=== PATIENT | male | born 1960 | race Caucasian/White ===

== ENCOUNTER 2016-05-21 14:40 | Emergency (ER) | payer BC ==
[2016-05-21 14:49] VITALS: RESP 20
[2016-05-21] MEDS ORDERED: NITROGLYCERIN OINT 1 INCH/GM PACKET TOPICAL STA (15:05)
[2016-05-21] MEDS ORDERED: ASPIRIN 81 MG CHEW PO STA (15:05)
--- NOTE | 2016-05-21 15:08 | ED ---
General Adult HPI - General Chief complaint: Chest Pain Stated complaint: Chest Pain Time Seen by Provider: 05/21/16 14:50 Source: patient, RN notes reviewed Mode of arrival: wheelchair Limitations: no limitations - History of Present Illness Initial comments: This is a 55-year-old male with a past medical history significant for diabetes and high blood pressure. Patient states she's had intermittent chest pain. The last 3 days. Patient states it seems to come and go and last a few hours patient states it does seem to be worse when he exerts himself. Patient denies any shortness of breath or radiation. Patient describes the chest pain as a pressure. Patient denies any diaphoresis or nausea. Patient states he did have some tingling in his hands but that is subsided. Currently she is pain- free. Patient denies any headache patient denies numbness weakness. Patient denies any lightheadedness dizziness or near syncopal episode. Patient denies any abdominal pain. Patient denies any vomiting or diarrhea. Patient denies any recent fevers chills or cough. - Related Data Home Medications Medication Instructions Recorded Confirmed Atenolol [Atenolol] 50 mg PO BID 03/05/15 05/21/16 Levothyroxine Sodium 50 mcg PO DAILY 03/05/15 05/21/16 [Levothyroxine Sodium] metFORMIN HCL [metFORMIN HCL] 500 mg PO BID 03/05/15 05/21/16 Aspirin 650 mg PO ONCE PRN 05/21/16 05/21/16 Aspirin EC [Ecotrin Low Dose] 81 mg PO HS 05/21/16 05/21/16 Magnesium 200 mg PO DAILY 05/21/16 05/21/16 Multivitamins, Thera [Multivitamin 1 tab PO DAILY 05/21/16 05/21/16 (formulary)] Pyridoxine [Vitamin B-6] 50 mg PO DAILY 05/21/16 05/21/16 Vitamin B Complex 1 cap PO DAILY 05/21/16 05/21/16 Zinc 50 mg PO DAILY 05/21/16 05/21/16 Allergies Allergy/AdvReac Type Severity Reaction Status Date / Time No Known Allergies Allergy Verified 05/21/16 15:03 Review of Systems ROS Statement: Those systems with pertinent positive or pertinent negative responses have been documented in the HPI. ROS Other: All systems not noted in ROS Statement are negative. Past Medical History Past Medical History: Hypertension, Thyroid Disorder Additional Past Medical History / Comment(s): THYROID NODULES. NOT DIABETIC, YET ON GLUCOPHAGE FOR "PROTECTIVE PURPOSES". Adrenal adenoma History of Any Multi-Drug Resistant Organisms: None Reported Additional Past Surgical History / Comment(s): THYROID BIOPSY. Past Anesthesia/Blood Transfusion Reactions: No Reported Reaction Past Psychological History: No Psychological Hx Reported Smoking Status: Never smoker Past Alcohol Use History: None Reported Past Drug Use History: None Reported - Past Family History Mother Family Medical History: Diabetes Mellitus Additional Family Medical History / Comment(s): HEPATITIS C. Father Family Medical History: Myocardial Infarction ([place]) Additional Family Medical History / Comment(s): 11CM ANUERSYM. General Exam - General Exam Comments Initial Comments: GENERAL: Patient is well-developed and well-nourished. Patient is nontoxic and well- hydrated and is in no acute distress. ENT: Neck is soft and supple. No significant lymphadenopathy is noted. Oropharynx is clear. Moist mucous membranes. Neck has full range of motion without eliciting any pain. EYES: The sclera were anicteric and conjunctiva were pink and moist. Extraocular movements were intact and pupils were equal round and reactive to light. Eyelids were unremarkable. PULMONARY: Unlabored respirations. Good breath sounds bilaterally. No audible rales rhonchi or wheezing was noted. CARDIOVASCULAR: There is a regular rate and rhythm without any murmurs gallops or rubs. ABDOMEN: Soft and nontender with normal bowel sounds. No palpable organomegaly was noted. There is no palpable pulsatile mass. SKIN: Skin is clear with no lesions or rashes and otherwise unremarkable. NEUROLOGIC: Patient is alert and oriented x3. Cranial nerves II through XII are grossly intact. Motor and sensory are also intact. Normal speech, volume and content. Symmetrical smile. MUSCULOSKELETAL: Normal extremities with adequate strength and full range of motion. No lower extremity swelling or edema. No calf tenderness. LYMPHATICS: No significant lymphadenopathy is noted PSYCHIATRIC: Normal psychiatric evaluation. Normal interpersonal interactions appears functionally intact in deals appropriately with others. No signs of depression. No signs of anxiety. Limitations: no limitations Course Vital Signs 05/21/16 05/21/16 05/21/16 14:47 15:25 16:30 Temperature 98.1 F 98.2 F Pulse Rate 70 66 69 Respiratory 20 20 20 Rate Blood Pressure 158/81 146/81 131/69 O2 Sat by Pulse 98 97 98 Oximetry Medical Decision Making - Medical Decision Making EKG shows normal sinus rhythm at 60 bpm WI interval 180 QRSs 80 QT interval 414 QTC is 440. Patient's EKG shows no ST segment elevation or depression or T wave abnormalities are noted. Patient's chest x-ray shows no acute abnormality. I went back into reevaluate the patient he continued to be chest pain-free. I suggested to the patient that he stay and I recommended that we start him on heparin because he is pains were intermittent and worse with exertion it seemed typical of unstable angina. Patient refused to stay I told him that it was my medical recommendation that he does state he again refused and signed out AMA. - Lab Data Result diagrams: 05/21/16 15:15 05/21/16 15:15 Lab Results 05/21/16 05/21/16 05/21/16 Range/Units 15:15 15:15 15:15 WBC 7.4 (3.8-10.6) k/uL RBC 5.14 (4.30-5.90) m/uL Hgb 16.7 (13.0-17.5) gm/dL Hct 46.9 (39.0-53.0) % MCV 91.1 (80.0-100.0) fL MCH 32.5 (25.0-35.0) pg MCHC 35.6 (31.0-37.0) g/dL RDW 13.4 (11.5-15.5) % Plt Count 173 (150-450) k/uL Neutrophils % 73 % Lymphocytes % 18 % Monocytes % 5 % Eosinophils % 3 % Basophils % 0 % Neutrophils # 5.3 (1.3-7.7) k/uL Lymphocytes # 1.3 (1.0-4.8) k/uL Monocytes # 0.4 (0-1.0) k/uL Eosinophils # 0.2 (0-0.7) k/uL Basophils # 0.0 (0-0.2) k/uL PT (9.0-12.0) sec INR (<1.1) APTT (22.0-30.0) sec Sodium 141 (137-145) mmol/L Potassium 3.5 (3.5-5.1) mmol/L Chloride 105 (98-107) mmol/L Carbon Dioxide 25 (22-30) mmol/L Anion Gap 11 mmol/L BUN 16 (9-20) mg/dL Creatinine 0.70 (0.66-1.25) mg/dL Est GFR (MDRD) Af Amer >60 (>60 ml/min/1.73 sqM) Est GFR (MDRD) Non-Af >60 (>60 ml/min/1.73 sqM) Glucose 104 H (74-99) mg/dL Calcium 8.9 (8.4-10.2) mg/dL Magnesium 2.0 (1.6-2.3) mg/dL Total Bilirubin 0.7 (0.2-1.3) mg/dL AST 31 (17-59) U/L ALT 39 (21-72) U/L Alkaline Phosphatase 54 (38-126) U/L Total Creatine Kinase 112 (55-170) U/L CK-MB (CK-2) 1.2 (0.0-2.4) ng/mL CK-MB (CK-2) Rel Index 1.1 Troponin I <0.012 (0.000-0.034) ng/mL Total Protein 6.8 (6.3-8.2) g/dL Albumin 4.0 (3.5-5.0) g/dL 05/21/16 Range/Units 15:15 WBC (3.8-10.6) k/uL RBC (4.30-5.90) m/uL Hgb (13.0-17.5) gm/dL Hct (39.0-53.0) % MCV (80.0-100.0) fL MCH (25.0-35.0) pg MCHC (31.0-37.0) g/dL RDW (11.5-15.5) % Plt Count (150-450) k/uL Neutrophils % % Lymphocytes % % Monocytes % % Eosinophils % % Basophils % % Neutrophils # (1.3-7.7) k/uL Lymphocytes # (1.0-4.8) k/uL Monocytes # (0-1.0) k/uL Eosinophils # (0-0.7) k/uL Basophils # (0-0.2) k/uL PT 10.6 (9.0-12.0) sec INR 1.0 (<1.1) APTT 26.0 (22.0-30.0) sec Sodium (137-145) mmol/L Potassium (3.5-5.1) mmol/L Chloride (98-107) mmol/L Carbon Dioxide (22-30) mmol/L Anion Gap mmol/L BUN (9-20) mg/dL Creatinine (0.66-1.25) mg/dL Est GFR (MDRD) Af Amer (>60 ml/min/1.73 sqM) Est GFR (MDRD) Non-Af (>60 ml/min/1.73 sqM) Glucose (74-99) mg/dL Calcium (8.4-10.2) mg/dL Magnesium (1.6-2.3) mg/dL Total Bilirubin (0.2-1.3) mg/dL AST (17-59) U/L ALT (21-72) U/L Alkaline Phosphatase (38-126) U/L Total Creatine Kinase (55-170) U/L CK-MB (CK-2) (0.0-2.4) ng/mL CK-MB (CK-2) Rel Index Troponin I (0.000-0.034) ng/mL Total Protein (6.3-8.2) g/dL Albumin (3.5-5.0) g/dL Disposition Clinical Impression: Unstable angina pectoris Disposition: Left Against Medical Advice Referrals: James Tolbert III, MD [Primary Care Provider] - 1-2 days Time of Disposition: 16:35
[2016-05-21 15:29] LABS: Basophils % (A) 0 %; CH 33.8; CHCM 37.2; Eosinophils # (A) 0.2 k/uL (0-0.7); Eosinophils % (A) 3 %; HCT 46.9 % (39.0-53.0); HDW 2.78; HGB 16.7 gm/dL (13.0-17.5); Luc # (Auto) 0.09; Luc % (Auto) 1; Lymphocytes # (A) 1.3 k/uL (1.0-4.8); Lymphocytes % (A) 18 %; MCH 32.5 pg (25.0-35.0); MCHC 35.6 g/dL (31.0-37.0); MCV 91.1 fL (80.0-100.0); Mean Platelet Volume 7.4; Monocytes # (A) 0.4 k/uL (0-1.0); Monocytes % (A) 5 %; Neutrophils # (A) 5.3 k/uL (1.3-7.7); Neutrophils % (A) 73 %; RBC 5.14 m/uL (4.30-5.90); RDW 13.4 % (11.5-15.5); WBC 7.4 k/uL (3.8-10.6); WBC (Perox) 7.43
[2016-05-21 15:39] LABS: Prothrombin Time 10.6 sec (9.0-12.0)
--- NOTE | 2016-05-21 15:39 | XR ---
EXAMINATION TYPE: XR chest 2V DATE OF EXAM: 05/21/2016 3:33 PM COMPARISON: NONE HISTORY: Chest pain TECHNIQUE: Frontal and lateral views of the chest are obtained. FINDINGS: Heart and mediastinum are normal. There is a small linear density in the left lower lobe. The other lung lewis are clear. There are no hilar masses. There are chest leads. IMPRESSION: Mild subsegmental atelectasis at the left lung base. Otherwise negative exam.
[2016-05-21 15:41] LABS: ALT 39 U/L (21-72); AST 31 U/L (17-59); Alkaline Phosphatase 54 U/L (38-126); Anion Gap 11 mmol/L; Blood Urea Nitrogen 16 mg/dL (9-20); Calcium 8.9 mg/dL (8.4-10.2); Carbon Dioxide 25 mmol/L (22-30); Chloride 105 mmol/L (98-107); Glucose 104 mg/dL (74-99); Non-African American GFR(MDRD) >60 (>60 ml/min/1.73 sqM); Potassium 3.5 mmol/L (3.5-5.1); Sodium 141 mmol/L (137-145); Total Bilirubin 0.7 mg/dL (0.2-1.3); Total Protein 6.8 g/dL (6.3-8.2)
[2016-05-21 15:55] LABS: Creatine Kinase 112 U/L (55-170)
[2016-05-21 16:07] LABS: Creatine Kinase MB 1.2 ng/mL (0.0-2.4); Troponin I <0.012 ng/mL (0.000-0.034)
[2016-05-21 16:31] VITALS: BP 131/69; PULSE 69; TEMP 98.2
== END 2016-05-21 16:31 | disposition left against medical advice (07) ==
LOC: EC 14:40
DX: I20.0 Unstable angina (principal); E07.9 Disorder of thyroid, unspecified; I10 Essential (primary) hypertension; E11.9 Type 2 diabetes mellitus without complications; Z79.84 Long term (current) use of oral hypoglycemic drugs; Z86.018 Personal history of other benign neoplasm; Z79.82 Long term (current) use of aspirin; Z53.21 Procedure and treatment not carried out due to patient leaving prior to being seen by health care provider; Z79.899 Other long term (current) drug therapy
CPT/HCPCS: 36415; 71020; 80053; 82550; 82553; 83735; 84484; 85025; 85610; 85730; 93005; 99285

== ENCOUNTER 2017-02-23 12:17 | Day surgery (SDC) | payer BC ==
[2017-02-23 13:50] VITALS: BP 146/83; PULSE 76; RESP 16; TEMP 98
--- NOTE | 2017-02-23 14:06 | US ---
EXAMINATION TYPE: US thyroid st tissue head/neck DATE OF EXAM: 02/23/2017 COMPARISON: Thyroid ultrasound February 12, 2017 CLINICAL HISTORY: E04.1 nontoxic nodule. GLAND SIZE: Right Lobe: 5.2 x 2.4 x 2.0 cm Overall Parenchyma: heterogenous Left Lobe: 4.6 x 2.0 x 1.8 cm Overall Parenchyma: heterogeneous Isthmus Thickness: 0.6 cm NODULES RIGHT: # of nodules measured on right: 1. 2.1 X 1.8 x 1.6 cm hypoechoic mixed nodule at the lower pole with irregular margins; . This nod ule is taller than wide and shows intranodular vascularity. Prior size: 2.7 x 1.6 x 1.6 cm 2. 0.6 X 0.5 x 0.6 cm hypoechoic cystic nodule at the mid pole with well-defined margins; . This no dule is taller than wide and shows no intranodular vascularity. Prior size: 0.7 x 0.6 x 0.6 cm 3. 0.9 X 0.8 x 0.6 cm hypoechoic solid nodule at the upper pole with irregular margins; . This nodu le is taller than wide and shows no intranodular vascularity. Prior size: 0.8 x 0.5 x 0.7 cm LEFT: # of nodules measured on left: 2 1. 2.4 X 1.6 x 1.5 cm hypoechoic mixed nodule at the lower pole with well-defined margins; . This nodule is taller than wide and shows no intranodular vascularity. Prior size: 2.3 x 1.7 x 1.7 cm 2. 0.9 X 0.6 x 0.5 cm isoechoic solid nodule at the upper pole with poorly defined margins; . This nodule is taller than wide and shows no intranodular vascularity. Prior size: Not previously seen ISTHMUS: # of nodules measured in the isthmus: 0 Bilateral neck scanned, no evidence of lymphadenopathy. IMPRESSION: Stable heterogeneous nonenlarged thyroid with scattered nodules. No significant change from recent ul trasound.
--- NOTE | 2017-02-23 15:47 | US ---
Discontinued fine-needle aspiration history: Toxic nodule following discussion of risks and benefits of the procedure, patient has elected not to undergo fine- needle aspiration at this time. Re-consult as necessary.
== END 2017-02-23 13:45 | disposition home or self-care (01) ==
LOC: RADPROMAIN 12:17
PROVIDERS: ATTEND Nurse Practitioner Family
DX: E04.1 Nontoxic single thyroid nodule (principal)
CPT/HCPCS: 76536

== ENCOUNTER → 2017-03-06 | Outpatient (CLI) | payer BC ==
[2017-03-06 14:25] LABS: Blood Urea Nitrogen 18 mg/dL (9-20)
--- NOTE | 2017-03-06 16:56 | CT ---
EXAMINATION TYPE: CT soft tissue neck w con DATE OF EXAM: 03/06/2017 COMPARISON: NONE HISTORY: choking sensation and difficulty swallowing CT DLP: 902.6 mGycm CONTRAST: Patient injected with 100 mL of Omnipaque 300. TECHNIQUE: Axial images at 3 mm thick sections. Reconstructed images in the coronal plane and sagitt al plane are reviewed. FINDINGS: Limited CT sections are obtained the lung apices. The lung apices appear clear. CT neck: The torus tubarius and fossa of Rosenmuller are normal. Bus Driver spaces are normal. Para nasal sinuses and mastoid air cells are clear. Parotid glands appear normal and symmetrical. Submandibular glands, are normal. Parapharyngeal spac es are normal. No suspicious adenopathy is evident. Dental amalgam scatter artifact limits evaluatio n at the level of the mandible. The hypopharynx appears within normal limits. Vocal cord level appear symmetrical. Thyroid contains a couple of small hypodensities within the right lobe thyroid. Thyroid is slightly e nlarged compared to the left. Degenerative changes are through the cervical spine. IMPRESSIONS: 1. No suspicious acute changes within the soft tissues neck to account for dysphasia.
== END | disposition home or self-care (01) ==
LOC: RADCTMAIN 13:52
PROVIDERS: ATTEND Family Medicine
DX: E04.1 Nontoxic single thyroid nodule (principal); E11.9 Type 2 diabetes mellitus without complications; R13.12 Dysphagia, oropharyngeal phase
CPT/HCPCS: 82565; 84520; 70491; 36415; Q9967

== ENCOUNTER 2018-07-12 16:29 | Emergency (ER) | payer BC ==
[2018-07-12 16:35] VITALS: RESP 18
[2018-07-12] MEDS ORDERED: MORPHINE SULFATE 4 MG/ML SYRINGE IV STA (16:52)
[2018-07-12] MEDS ORDERED: SODIUM CHLORIDE 0.9% 1,000 ML IV STA ×2 (16:52)
[2018-07-12] MEDS ORDERED: SODIUM CHLORIDE 0.9% 500 ML 500 ML IV STA (16:52)
[2018-07-12 17:20] LABS: Basophils % (A) 0 %; Eosinophils # (A) 0.2 k/uL (0-0.7); Eosinophils % (A) 1 %; HCT 46.1 % (39.0-53.0); HGB 15.8 gm/dL (13.0-17.5); Lymphocytes % (A) 7 %; MCH 31.5 pg (25.0-35.0); MCHC 34.2 g/dL (31.0-37.0); Mean Platelet Volume 7.4; Monocytes # (A) 0.9 k/uL (0-1.0); Monocytes % (A) 7 %; Neutrophils # (A) 10.8 k/uL (1.3-7.7); Neutrophils % (A) 83 %; Platelet Count 146 k/uL (150-450); RBC 5.01 m/uL (4.30-5.90)
[2018-07-12 17:35] LABS: Albumin 3.9 g/dL (3.5-5.0); Calcium 9.2 mg/dL (8.4-10.2); Potassium 3.4 mmol/L (3.5-5.1); Total Bilirubin 1.1 mg/dL (0.2-1.3); Total Protein 6.6 g/dL (6.3-8.2)
[2018-07-12 17:37] LABS: Appearance,Urine Clear (Clear); Bilirubin,Urine Negative (Negative); Blood,Urine Small (Negative); Color,Urine Yellow; Glucose,Urine (UA) Negative (Negative); Ketones,Urine Negative (Negative); Leukocyte Esterase,Urine Negative (Negative); Mucus,Urine Rare /hpf; Nitrite,Urine Negative (Negative); PH, Urine 5.5 (5.0-8.0); Protein,Urine Negative (Negative); RBC,Urine 1 /hpf (0-5); Specific Gravity,Urine 1.009 (1.001-1.035); Urobilinogen,Urine <2.0 mg/dL (<2.0); WBC,Urine 2 /hpf (0-5)
--- NOTE | 2018-07-12 18:08 | ED ---
Abdominal Pain HPI - General Chief Complaint: Abdominal Pain Stated Complaint: Kidney stone Time Seen by Provider: 07/12/18 16:52 Source: patient, RN notes reviewed, old records reviewed Mode of arrival: ambulatory Limitations: no limitations - History of Present Illness Initial Comments: This is a 57-year-old male the ER for evaluation. Patient presents for evaluation regarding abdominal pain history of kidney stones. Patient's presenting for evaluation of same. Pain is uncontrolled. Patient was seen in ER recently for similar complaint. Patient has no other fevers cough or congestion no nausea vomiting or diarrhea. MD Complaint: abdominal pain, flank pain -: days(s) Location: LLQ, L flank Radiation: L flank Migration to: L flank Severity: moderate Severity scale (1-10): 6 Quality: stabbing, aching Consistency: constant Improves With: nothing Worsens With: nothing Associated Symptoms: nausea - Related Data Home Medications Medication Instructions Recorded Confirmed Atenolol 50 mg PO BID 03/05/15 07/12/18 Levothyroxine Sodium 50 mcg PO DAILY 03/05/15 07/12/18 metFORMIN HCL 500 mg PO BID 03/05/15 07/12/18 Aspirin EC [Ecotrin Low Dose] 81 mg PO HS 05/21/16 07/12/18 Magnesium 200 mg PO DAILY 05/21/16 07/12/18 Multivitamins, Thera [Multivitamin 1 tab PO DAILY 05/21/16 07/12/18 (formulary)] Pyridoxine [Vitamin B-6] 50 mg PO DAILY 05/21/16 07/12/18 Vitamin B Complex 1 cap PO DAILY 05/21/16 07/12/18 Zinc 50 mg PO DAILY 05/21/16 07/12/18 Naproxen 500 mg PO BID 07/12/18 07/12/18 Allergies Allergy/AdvReac Type Severity Reaction Status Date / Time No Known Allergies Allergy Verified 07/12/18 17:00 Review of Systems ROS Statement: Those systems with pertinent positive or pertinent negative responses have been documented in the HPI. ROS Other: All systems not noted in ROS Statement are negative. Past Medical History Past Medical History: Hypertension, Thyroid Disorder Additional Past Medical History / Comment(s): THYROID NODULES. NOT DIABETIC, YET ON GLUCOPHAGE FOR "PROTECTIVE PURPOSES". Adrenal adenoma History of Any Multi-Drug Resistant Organisms: None Reported Additional Past Surgical History / Comment(s): THYROID BIOPSY. Past Anesthesia/Blood Transfusion Reactions: No Reported Reaction Past Psychological History: No Psychological Hx Reported Smoking Status: Never smoker Past Alcohol Use History: None Reported Past Drug Use History: None Reported - Past Family History Mother Family Medical History: Diabetes Mellitus Additional Family Medical History / Comment(s): HEPATITIS C. Father Family Medical History: Myocardial Infarction ([place]) Additional Family Medical History / Comment(s): 11CM ANUERSYM. General Exam Limitations: no limitations General appearance: alert, in no apparent distress Head exam: Present: atraumatic, normocephalic, normal inspection Eye exam: Present: normal appearance, PERRL, EOMI. Absent: scleral icterus, conjunctival injection, periorbital swelling ENT exam: Present: normal exam, mucous membranes moist Neck exam: Present: normal inspection. Absent: tenderness, meningismus, lymp hadenopathy Respiratory exam: Present: normal lung sounds bilaterally. Absent: respiratory distress, wheezes, rales, rhonchi, stridor Cardiovascular Exam: Present: regular rate, normal rhythm, normal heart sounds. Absent: systolic murmur, diastolic murmur, rubs, gallop, clicks GI/Abdominal exam: Present: soft, normal bowel sounds. Absent: distended, tenderness, guarding, rebound, rigid Extremities exam: Present: normal inspection, full ROM, normal capillary refill. Absent: tenderness, pedal edema, joint swelling, calf tenderness Back exam: Present: normal inspection Neurological exam: Present: alert, oriented X3, CN II-XII intact Psychiatric exam: Present: normal affect, normal mood Skin exam: Present: warm, dry, intact, normal color. Absent: rash Course Vital Signs 07/12/18 07/12/18 16:32 18:59 Temperature 98.8 F Pulse Rate 75 71 Respiratory 18 18 Rate Blood Pressure 187/8 159/80 O2 Sat by Pulse 98 98 Oximetry Medical Decision Making - Lab Data Result diagrams: 07/12/18 17:05 07/12/18 17:05 Lab Results 07/12/18 07/12/18 07/12/18 Range/Units 17:05 17:05 17:11 WBC 13.0 H (3.8-10.6) k/uL RBC 5.01 (4.30-5.90) m/uL Hgb 15.8 (13.0-17.5) gm/dL Hct 46.1 (39.0-53.0) % MCV 92.0 (80.0-100.0) fL MCH 31.5 (25.0-35.0) pg MCHC 34.2 (31.0-37.0) g/dL RDW 13.0 (11.5-15.5) % Plt Count 146 L (150-450) k/uL Neutrophils % 83 % Lymphocytes % 7 % Monocytes % 7 % Eosinophils % 1 % Basophils % 0 % Neutrophils # 10.8 H (1.3-7.7) k/uL Lymphocytes # 1.0 (1.0-4.8) k/uL Monocytes # 0.9 (0-1.0) k/uL Eosinophils # 0.2 (0-0.7) k/uL Basophils # 0.0 (0-0.2) k/uL Sodium 139 (137-145) mmol/L Potassium 3.4 L (3.5-5.1) mmol/L Chloride 106 (98-107) mmol/L Carbon Dioxide 24 (22-30) mmol/L Anion Gap 9 mmol/L BUN 22 H (9-20) mg/dL Creatinine 1.20 (0.66-1.25) mg/dL Est GFR (CKD-EPI)AfAm 78 (>60 ml/min/1.73 sqM) Est GFR (CKD-EPI)NonAf 67 (>60 ml/min/1.73 sqM) Glucose 138 H (74-99) mg/dL Calcium 9.2 (8.4-10.2) mg/dL Total Bilirubin 1.1 (0.2-1.3) mg/dL AST 31 (17-59) U/L ALT 27 (21-72) U/L Alkaline Phosphatase 48 (38-126) U/L Total Protein 6.6 (6.3-8.2) g/dL Albumin 3.9 (3.5-5.0) g/dL Amylase 36 (30-110) U/L Lipase 66 (23-300) U/L Urine Color Yellow Urine Appearance Clear (Clear) Urine pH 5.5 (5.0-8.0) Ur Specific [place] 1.009 (1.001-1.035) Urine Protein Negative (Negative) Urine Glucose (UA) Negative (Negative) Urine Ketones Negative (Negative) Urine Blood Small H (Negative) Urine Nitrite Negative (Negative) Urine Bilirubin Negative (Negative) Urine Urobilinogen <2.0 (<2.0) mg/dL Ur Leukocyte Esterase Negative (Negative) Urine RBC 1 (0-5) /hpf Urine WBC 2 (0-5) /hpf Urine Mucus Rare H (None) /hpf Disposition Clinical Impression: Left ureteral stone Disposition: HOME SELF-CARE Condition: Good Instructions (If sedation given, give patient instructions): Renal Colic (ED), Kidney Stones (ED) Is patient prescribed a controlled substance at d/c from ED?: No Referrals: Serafin Woodson MD [Primary Care Provider] - 1-2 days
--- NOTE | 2018-07-12 19:00 | CT ---
EXAMINATION TYPE: CT abdomen pelvis wo con DATE OF EXAM: 07/12/2018 COMPARISON: 01/19/2010 HISTORY: LT side abdominal pain. Pt hx renal stones. Pt said he had a CT scan 3 days ago in [place] a nd [address] DLP: 1581 mGycm Automated exposure control for dose reduction was used. TECHNIQUE: Helical acquisition of images was performed from the lung bases through the pelvis. FINDINGS: There is mild scarring and subsegmental atelectasis at the lung bases. Liver spleen pancreas stomach appear normal. Bile ducts are not dilated. There is no adrenal mass. There is a 7 cm cortical cyst upper pole right kidney. There is left side. The nephric edema and periureteral edema. There is left-sided hydronephrosis and hydroureter. There is 4 mm obstructing calculus at the left ureterovesical junction. I see no other u rinary tract calculus. Bladder distends smoothly. There is no inguinal hernia. There is no ascites or free air. There is no mesenteric edema. There is no evidence of a bowel obstruction. Exam is limited by the patient's size. I see no bony destructive process. There is a minimal degenerative first-degree L5 spondylolisthesis. There is no spondylolysis . Bony pelvis is intact.. Appendix is normal. Right colon is not entirely included on this exam. IMPRESSION: OBSTRUCTING SMALL CALCULUS AT THE LEFT URETEROVESICAL JUNCTION WITH LEFT-SIDED HYDRONEPHROSIS AND HYD ROURETER. MILD FIBROTIC CHANGES AND SUBSEGMENTAL ATELECTASIS AT THE LUNG BASES.
[2018-07-12] MEDS ORDERED: ACET/COD 300 MG/30 MG STARTER PACK 6 TAB BTL PO STA (19:12)
[2018-07-12] MEDS ORDERED: TAMSULOSIN 0.4 MG CAP.ER.24H PO STA (19:12)
[2018-07-12 19:34] VITALS: BP 170/95; PULSE 72; TEMP 99.1
== END 2018-07-12 19:32 | disposition home or self-care (01) ==
LOC: EC 16:29
DX: N20.1 Calculus of ureter (principal); I10 Essential (primary) hypertension; E07.9 Disorder of thyroid, unspecified; Z79.890 Hormone replacement therapy; Z79.84 Long term (current) use of oral hypoglycemic drugs; Z79.82 Long term (current) use of aspirin; Z79.1 Long term (current) use of non-steroidal anti-inflammatories (NSAID); Z79.899 Other long term (current) drug therapy
CPT/HCPCS: 36415; 80053; 82150; 83690; 85025; 81001; 87086; 74176; 99285; 96374; 96361 ×2; J2270

== ENCOUNTER 2018-07-30 15:00 | Observation (INO) | payer BC ==
[2018-07-30 17:37] LABS: Basophils # (A) 0.1 k/uL (0-0.2); Basophils % (A) 1 %; Eosinophils # (A) 0.9 k/uL (0-0.7); Eosinophils % (A) 9 %; HCT 44.2 % (39.0-53.0); HGB 15.1 gm/dL (13.0-17.5); Lymphocytes # (A) 1.4 k/uL (1.0-4.8); Lymphocytes % (A) 15 %; MCH 30.9 pg (25.0-35.0); MCHC 34.2 g/dL (31.0-37.0); MCV 90.3 fL (80.0-100.0); Mean Platelet Volume 7.3; Monocytes # (A) 0.6 k/uL (0-1.0); Monocytes % (A) 7 %; Neutrophils # (A) 6.5 k/uL (1.3-7.7); Neutrophils % (A) 67 %; Platelet Count 224 k/uL (150-450); RDW 14.2 % (11.5-15.5); WBC 9.6 k/uL (3.8-10.6)
[2018-07-30 17:42] LABS: Appearance,Urine Clear (Clear); Bacteria,Urine Rare /hpf; Bilirubin,Urine Negative (Negative); Blood,Urine Trace (Negative); Color,Urine Yellow; Glucose,Urine (UA) Negative (Negative); Ketones,Urine Negative (Negative); Leukocyte Esterase,Urine Negative (Negative); Mucus,Urine Few /hpf; Nitrite,Urine Negative (Negative); PH, Urine 5.5 (5.0-8.0); Protein,Urine Trace (Negative); RBC,Urine 8 /hpf (0-5); Specific Gravity,Urine 1.035 (1.001-1.035); WBC,Urine 1 /hpf (0-5)
[2018-07-30 17:47] LABS: INR 1.1 (<1.2); Partial Thromboplastin Time 26.1 sec (22.0-30.0); Prothrombin Time 11.1 sec (9.0-12.0)
[2018-07-30 17:54] LABS: ALT 289 U/L (21-72); AST 175 U/L (17-59); African American GFR (CKD) >90 (>60 ml/min/1.73 sqM); Albumin 3.8 g/dL (3.5-5.0); Alkaline Phosphatase 91 U/L (38-126); Amylase 52 U/L (30-110); Anion Gap 7 mmol/L; Blood Urea Nitrogen 22 mg/dL (9-20); Calcium 9.3 mg/dL (8.4-10.2); Carbon Dioxide 25 mmol/L (22-30); Chloride 109 mmol/L (98-107); Creatine Kinase 61 U/L (55-170); Creatine Kinase MB 0.5 ng/mL (0.0-2.4); Glucose 127 mg/dL (74-99); Lipase 100 U/L (23-300); Magnesium 2.1 mg/dL (1.6-2.3); Sodium 141 mmol/L (137-145); Total Bilirubin 1.1 mg/dL (0.2-1.3); Total Protein 6.9 g/dL (6.3-8.2); Troponin I <0.012 ng/mL (0.000-0.034)
--- NOTE | 2018-07-30 18:04 | ED ---
General Adult HPI - General Stated complaint: Allergic Reaction Time Seen by Provider: 07/30/18 17:08 Source: RN notes reviewed, old records reviewed - History of Present Illness Initial comments: 57-year-old male present emergency department today for multiple complaints. Patient reports that 2 weeks ago he returned from [place]. While he was in [place] he was treated for a kidney stone and was treated with medication called Estrella Mintezol. Patient states that he feels like he is now having all the adverse side effects of this medication and feels that he may have some concerns for a granulocytosis. He complains of fever bodyaches and chills. [place] He does question if he could possibly have malaria as well. Patient states he feels general fatigue, and will have episodes of shaking and sweating spells. Patient states that he has no specific chest pain, Patient also complains of a dry cough.. He states that he was treated in the [facility] for 3 days prior to coming here. He was seen in this emergency room and treated for kidney stones 2 weeks ago. He states that those have passed a denies any significant flank pain dysuria at this time. - Related Data Home Medications Medication Instructions Recorded Confirmed Atenolol 50 mg PO BID 03/05/15 07/30/18 Levothyroxine Sodium 50 mcg PO DAILY 03/05/15 07/30/18 metFORMIN HCL 500 mg PO BID 03/05/15 07/30/18 Multivitamins, Thera [Multivitamin 1 tab PO DAILY 05/21/16 07/30/18 (formulary)] Naproxen 500 mg PO BID 07/12/18 07/30/18 Allergies Allergy/AdvReac Type Severity Reaction Status Date / Time No Known Allergies Allergy Verified 07/30/18 17:05 Review of Systems ROS Statement: Those systems with pertinent positive or pertinent negative responses have been documented in the HPI. ROS Other: All systems not noted in ROS Statement are negative. Past Medical History Past Medical History: Hypertension, Thyroid Disorder Additional Past Medical History / Comment(s): THYROID NODULES. NOT DIABETIC, YET ON GLUCOPHAGE FOR "PROTECTIVE PURPOSES". Adrenal adenoma History of Any Multi-Drug Resistant Organisms: None Reported Additional Past Surgical History / Comment(s): THYROID BIOPSY. Past Anesthesia/Blood Transfusion Reactions: No Reported Reaction Past Psychological History: No Psychological Hx Reported Smoking Status: Never smoker Past Alcohol Use History: None Reported Past Drug Use History: None Reported - Past Family History Mother Family Medical History: Diabetes Mellitus Additional Family Medical History / Comment(s): HEPATITIS C. Father Family Medical History: Myocardial Infarction ([place]) Additional Family Medical History / Comment(s): 11CM MARSHALLSYM. Course Vital Signs 07/30/18 07/30/18 07/30/18 18:00 18:11 18:30 Temperature 100.0 F H Pulse Rate 77 75 Respiratory 20 18 Rate Blood Pressure 135/81 150/91 150/91 O2 Sat by Pulse 95 97 Oximetry 07/30/18 07/30/18 07/30/18 19:00 19:09 19:30 Temperature 99.4 F Pulse Rate 76 Respiratory 16 Rate Blood Pressure 154/91 150/89 150/89 O2 Sat by Pulse 97 97 Oximetry 07/30/18 07/30/18 07/30/18 20:00 20:30 21:00 Temperature 99.5 F Pulse Rate Respiratory Rate Blood Pressure 137/66 152/98 142/91 O2 Sat by Pulse 98 97 Oximetry Medical Decision Making - Medical Decision Making Patient is a 57 year old male presents today for complaints of fatigue, fevers, dry cough, and general weakness. Patient reports symptoms started 3 weeks after travel to [facility], as well as 2 weeks after treatment for kidney stones. He was diagnosed with kidney stones while in [place] and treated with metimazole. Patient initially concerned symptoms from side affect of metimazole for kidney stone pain such as agranulocytosis. Patient has low grade fever 100.0. Labs initiated and started on fluids. Patient labs were reviewed, elevated transaminase within the past 2 weeks. Patient denies RUQ pain. Gallbladder US shows mildly dilated duct, unclear etiology. Negative lazo sign. Patient history and recent travel concern for possible infectious dissease such as malaria. Patient will be started on doxycycline and quinine. Peripheral smear obtained. Dsicussed close PCP follow up. - Lab Data Result diagrams: 07/30/18 16:30 07/30/18 16:30 Lab Results 07/30/18 07/30/18 07/30/18 Range/Units 16:30 16:30 16:30 WBC 9.6 (3.8-10.6) k/uL RBC 4.90 (4.30-5.90) m/uL Hgb 15.1 (13.0-17.5) gm/dL Hct 44.2 (39.0-53.0) % MCV 90.3 (80.0-100.0) fL MCH 30.9 (25.0-35.0) pg MCHC 34.2 (31.0-37.0) g/dL RDW 14.2 (11.5-15.5) % Plt Count 224 (150-450) k/uL Neutrophils % 67 % Lymphocytes % 15 % Monocytes % 7 % Eosinophils % 9 % Basophils % 1 % Neutrophils # 6.5 (1.3-7.7) k/uL Lymphocytes # 1.4 (1.0-4.8) k/uL Monocytes # 0.6 (0-1.0) k/uL Eosinophils # 0.9 H (0-0.7) k/uL Basophils # 0.1 (0-0.2) k/uL PT (9.0-12.0) sec INR (<1.2) APTT (22.0-30.0) sec Sodium 141 (137-145) mmol/L Potassium 4.0 (3.5-5.1) mmol/L Chloride 109 H (98-107) mmol/L Carbon Dioxide 25 (22-30) mmol/L Anion Gap 7 mmol/L BUN 22 H (9-20) mg/dL Creatinine 0.70 (0.66-1.25) mg/dL Est GFR (CKD-EPI)AfAm >90 (>60 ml/min/1.73 sqM) Est GFR (CKD-EPI)NonAf >90 (>60 ml/min/1.73 sqM) Glucose 127 H (74-99) mg/dL Plasma Lactic Acid Hank (0.7-2.0) mmol/L Calcium 9.3 (8.4-10.2) mg/dL Magnesium 2.1 (1.6-2.3) mg/dL Total Bilirubin 1.1 (0.2-1.3) mg/dL AST 175 H (17-59) U/L ALT 289 H (21-72) U/L Alkaline Phosphatase 91 (38-126) U/L Total Creatine Kinase 61 (55-170) U/L CK-MB (CK-2) 0.5 (0.0-2.4) ng/mL CK-MB (CK-2) Rel Index 0.8 Troponin I <0.012 (0.000-0.034) ng/mL NT-Pro-B Natriuret Pep pg/mL Total Protein 6.9 (6.3-8.2) g/dL Albumin 3.8 (3.5-5.0) g/dL Amylase 52 (30-110) U/L Lipase 100 (23-300) U/L Urine Color Urine Appearance (Clear) Urine pH (5.0-8.0) Ur Specific Joaquin (1.001-1.035) Urine Protein (Negative) Urine Glucose (UA) (Negative) Urine Ketones (Negative) Urine Blood (Negative) Urine Nitrite (Negative) Urine Bilirubin (Negative) Urine Urobilinogen (<2.0) mg/dL Ur Leukocyte Esterase (Negative) Urine RBC (0-5) /hpf Urine WBC (0-5) /hpf Urine Bacteria (None) /hpf Urine Mucus (None) /hpf 07/30/18 07/30/18 07/30/18 Range/Units 16:30 16:30 16:30 WBC (3.8-10.6) k/uL RBC (4.30-5.90) m/uL Hgb (13.0-17.5) gm/dL Hct (39.0-53.0) % MCV (80.0-100.0) fL MCH (25.0-35.0) pg MCHC (31.0-37.0) g/dL RDW (11.5-15.5) % Plt Count (150-450) k/uL Neutrophils % % Lymphocytes % % Monocytes % % Eosinophils % % Basophils % % Neutrophils # (1.3-7.7) k/uL Lymphocytes # (1.0-4.8) k/uL Monocytes # (0-1.0) k/uL Eosinophils # (0-0.7) k/uL Basophils # (0-0.2) k/uL PT 11.1 (9.0-12.0) sec INR 1.1 (<1.2) APTT 26.1 (22.0-30.0) sec Sodium (137-145) mmol/L Potassium (3.5-5.1) mmol/L Chloride (98-107) mmol/L Carbon Dioxide (22-30) mmol/L Anion Gap mmol/L BUN (9-20) mg/dL Creatinine (0.66-1.25) mg/dL Est GFR (CKD-EPI)AfAm (>60 ml/min/1.73 sqM) Est GFR (CKD-EPI)NonAf (>60 ml/min/1.73 sqM) Glucose (74-99) mg/dL Plasma Lactic Acid Hank (0.7-2.0) mmol/L Calcium (8.4-10.2) mg/dL Magnesium (1.6-2.3) mg/dL Total Bilirubin (0.2-1.3) mg/dL AST (17-59) U/L ALT (21-72) U/L Alkaline Phosphatase (38-126) U/L Total Creatine Kinase (55-170) U/L CK-MB (CK-2) (0.0-2.4) ng/mL CK-MB (CK-2) Rel Index Troponin I (0.000-0.034) ng/mL NT-Pro-B Natriuret Pep 62 pg/mL Total Protein (6.3-8.2) g/dL Albumin (3.5-5.0) g/dL Amylase (30-110) U/L Lipase (23-300) U/L Urine Color Yellow Urine Appearance Clear (Clear) Urine pH 5.5 (5.0-8.0) Ur Specific Joaquin 1.035 (1.001-1.035) Urine Protein Trace H (Negative) Urine Glucose (UA) Negative (Negative) Urine Ketones Negative (Negative) Urine Blood Trace H (Negative) Urine Nitrite Negative (Negative) Urine Bilirubin Negative (Negative) Urine Urobilinogen 4.0 (<2.0) mg/dL Ur Leukocyte Esterase Negative (Negative) Urine RBC 8 H (0-5) /hpf Urine WBC 1 (0-5) /hpf Urine Bacteria Rare H (None) /hpf Urine Mucus Few H (None) /hpf 07/30/18 Range/Units 16:30 WBC (3.8-10.6) k/uL RBC (4.30-5.90) m/uL Hgb (13.0-17.5) gm/dL Hct (39.0-53.0) % MCV (80.0-100.0) fL MCH (25.0-35.0) pg MCHC (31.0-37.0) g/dL RDW (11.5-15.5) % Plt Count (150-450) k/uL Neutrophils % % Lymphocytes % % Monocytes % % Eosinophils % % Basophils % % Neutrophils # (1.3-7.7) k/uL Lymphocytes # (1.0-4.8) k/uL Monocytes # (0-1.0) k/uL Eosinophils # (0-0.7) k/uL Basophils # (0-0.2) k/uL PT (9.0-12.0) sec INR (<1.2) APTT (22.0-30.0) sec Sodium (137-145) mmol/L Potassium (3.5-5.1) mmol/L Chloride (98-107) mmol/L Carbon Dioxide (22-30) mmol/L Anion Gap mmol/L BUN (9-20) mg/dL Creatinine (0.66-1.25) mg/dL Est GFR (CKD-EPI)AfAm (>60 ml/min/1.73 sqM) Est GFR (CKD-EPI)NonAf (>60 ml/min/1.73 sqM) Glucose (74-99) mg/dL Plasma Lactic Acid Hank 2.0 (0.7-2.0) mmol/L Calcium (8.4-10.2) mg/dL Magnesium (1.6-2.3) mg/dL Total Bilirubin (0.2-1.3) mg/dL AST (17-59) U/L ALT (21-72) U/L Alkaline Phosphatase (38-126) U/L Total Creatine Kinase (55-170) U/L CK-MB (CK-2) (0.0-2.4) ng/mL CK-MB (CK-2) Rel Index Troponin I (0.000-0.034) ng/mL NT-Pro-B Natriuret Pep pg/mL Total Protein (6.3-8.2) g/dL Albumin (3.5-5.0) g/dL Amylase (30-110) U/L Lipase (23-300) U/L Urine Color Urine Appearance (Clear) Urine pH (5.0-8.0) Ur Specific Joaquin (1.001-1.035) Urine Protein (Negative) Urine Glucose (UA) (Negative) Urine Ketones (Negative) Urine Blood (Negative) Urine Nitrite (Negative) Urine Bilirubin (Negative) Urine Urobilinogen (<2.0) mg/dL Ur Leukocyte Esterase (Negative) Urine RBC (0-5) /hpf Urine WBC (0-5) /hpf Urine Bacteria (None) /hpf Urine Mucus (None) /hpf 07/30/18 18:45 EKG shows sinus rhythm and nonspecific ST and round. Abnormal EKG. Ventricular rate of 76 bpm. Pulse 172 ms. QRS duration 80 ms. QT QTc is 382/429 ms. - Radiology Data Radiology results: report reviewed common duct caliber is mildly dilated. Etiology unclear. Negative Lazo sign. CXR is negative for acute process. Disposition Clinical Impression: Fever, Recently in malaria endemic area, Elevated LFTs Disposition: ADMITTED IP TO THIS HOSP Condition: Stable Is patient prescribed a controlled substance at d/c from ED?: No
[2018-07-30] MEDS ORDERED: ACETAMINOPHEN TAB 500 MG TAB PO STA (18:22)
[2018-07-30] MEDS ORDERED: SODIUM CHLORIDE 0.9% 1,000 ML IV ONE (18:22)
[2018-07-30] MEDS ORDERED: DOXYCYCLINE 100 MG CAP PO STA (18:47)
--- NOTE | 2018-07-30 18:58 | XR ---
EXAMINATION: XR chest 3V DATE AND TIME: 07/30/2018 5:47 PM CLINICAL INDICATION: PHH; Pain TECHNIQUE: 2 frontal and 1 lateral COMPARISON: 05/21/2016 FINDINGS: The lungs are clear. The pleural spaces are negative. The cardiac silhouette is not enlarged. The remainder of the mediastinal silhouette is unremarkable. The skeletal structures and soft tissues are negative for acute findings. IMPRESSION: NO ACUTE PROCESS.
[2018-07-30] MEDS ORDERED: NALOXONE 0.4 MG/ML 1 ML VIAL IV PRN (19:07)
[2018-07-30] MEDS ORDERED: KETOROLAC 30 MG/ML 1 ML VIAL IVP PRN (19:07)
[2018-07-30] MEDS ORDERED: ONDANSETRON 4 MG/2 ML VIAL IVP PRN (19:07)
[2018-07-30] MEDS ORDERED: ACETAMINOPHEN TAB 325 MG TAB PO PRN (19:07)
[2018-07-30] MEDS ORDERED: IBUPROFEN 400 MG TAB PO PRN (19:07)
--- NOTE | 2018-07-30 19:55 | US ---
EXAMINATION TYPE: US gallbladder DATE OF EXAM: 07/30/2018 COMPARISON: NONE CLINICAL HISTORY: Pain, elevated liver enzymes, fatigue EXAM MEASUREMENTS: Liver Length: 16.1 cm Gallbladder Wall: 0.3 cm CBD: 0.7 cm Right Kidney: 15.0 x 6.8 x 6.5 cm Exam limited due to body habitus and bowel gas. Pancreas: Obscured by bowel gas Liver: Increased attenuation limited due to overlying bowel gas. Gallbladder: Limited visualization Evidence for sonographic Lazo's sign: No CBD: wnl Right Kidney: Cystic area seen upper pole measuring 7.6 x 6.1 x 5.6cm. IMPRESSION: COMMON DUCT CALIBER IS MILDLY DILATED, ETIOLOGY UNCLEAR.
[2018-07-30 22:43] VITALS: BMI 39.9
[2018-07-31] MEDS: ATENOLOL 50 MG TAB PO SCH ×3 (01:03→22:04)
[2018-07-31] MEDS: metFORMIN 500 MG TAB PO SCH ×3 (01:03→22:04)
[2018-07-31] MEDS: LEVOTHYROXINE 50 MCG TAB PO SCH (06:17)
[2018-07-31 07:06] LABS: Glucose,Whole Blood 139 mg/dL (75-99)
--- NOTE | 2018-07-31 07:33 | P.HPIM ---
History of Present Illness H&P Date: 07/31/18 Chief Complaint: Fatigue bodyaches. This is a history of physical 57-year-old white male who has recently returned from travel from [place] in [facility] where he ended up having nephrolithiasis. He was treated with metimazole, which is for anti-inflammation and pain. He has been tolerating this product but then states shortly after continue the product he had significant myalgias arthralgias and fatigue. Nephrolithiasis has resolved. He was seen in the emergency room several weeks ago, by history. His travel in [facility] in [facility] was not at all in any type of genital atmosphere. His trip was "domesticated." Question medication side effect. Given his overall picture though, he is been empirically treated with quinine for possible malaria Review of Systems Constitutional: Reports fatigue, Reports sweats, Denies chills, Denies fever Eyes: denies blurred vision, denies pain Ears, nose, mouth and throat: Denies headache, Denies sore throat Cardiovascular: Denies chest pain, Denies shortness of breath Respiratory: Denies cough Gastrointestinal: Denies abdominal pain, Denies diarrhea, Denies nausea, Denies vomiting Past Medical History Past Medical History: Hypertension, Thyroid Disorder Additional Past Medical History / Comment(s): THYROID NODULES. NOT DIABETIC, YET ON GLUCOPHAGE FOR "PROTECTIVE PURPOSES". Adrenal adenoma History of Any Multi-Drug Resistant Organisms: None Reported Additional Past Surgical History / Comment(s): THYROID BIOPSY. Past Anesthesia/Blood Transfusion Reactions: No Reported Reaction Past Psychological History: No Psychological Hx Reported Smoking Status: Never smoker Past Alcohol Use History: None Reported Past Drug Use History: None Reported - Past Family History Mother Family Medical History: Diabetes Mellitus Additional Family Medical History / Comment(s): HEPATITIS C. Father Family Medical History: Myocardial Infarction ([place]) Additional Family Medical History / Comment(s): 11CM ELDON. Medications and Allergies Home Medications Medication Instructions Recorded Confirmed Type Atenolol 50 mg PO BID 03/05/15 07/30/18 History Levothyroxine Sodium 50 mcg PO DAILY 03/05/15 07/30/18 History metFORMIN HCL 500 mg PO BID 03/05/15 07/30/18 History Multivitamins, Thera [Multivitamin 1 tab PO DAILY 05/21/16 07/30/18 History (formulary)] Naproxen 500 mg PO BID 07/12/18 07/30/18 History Allergies Allergy/AdvReac Type Severity Reaction Status Date / Time No Known Allergies Allergy Verified 07/30/18 17:05 Physical Exam Vitals: Vital Signs Temp Pulse Pulse Pulse Resp BP BP 07/31/18 05:10 99.5 F 71 20 07/31/18 01:00 98.9 F 07/30/18 22:20 98.5 F 74 20 147/89 07/30/18 21:00 99.5 F 142/91 07/30/18 20:30 152/98 07/30/18 20:00 137/66 07/30/18 19:30 150/89 07/30/18 19:09 99.4 F 76 16 150/89 07/30/18 19:00 154/91 07/30/18 18:30 150/91 07/30/18 18:11 100.0 F H 75 18 150/91 07/30/18 18:00 77 20 135/81 BP Pulse Ox 07/31/18 05:10 156/96 97 07/31/18 01:00 07/30/18 22:20 98 07/30/18 21:00 07/30/18 20:30 97 07/30/18 20:00 98 07/30/18 19:30 97 07/30/18 19:09 97 07/30/18 19:00 07/30/18 18:30 07/30/18 18:11 97 07/30/18 18:00 95 Intake and Output 07/30/18 07/31/18 07/31/18 22:59 06:59 14:59 Intake Total 100 300 Balance 100 300 Intake: Oral 100 300 Other: Voiding Method Toilet # Voids 1 2 Weight 145.15 kg - Constitutional General appearance: obese - EENT Eyes: no abnormal pupil, no scleral icterus - Neck Neck: no lymphadenopathy - Respiratory Respiratory: bilateral: CTA - Cardiovascular Rhythm: regular Heart sounds: normal: S1, S2 Abnormal Heart Sounds: no S3 Gallop - Gastrointestinal General gastrointestinal: soft, no tenderness - Neurologic Neurologic: CNII-XII intact - Psychiatric Psychiatric: A&O x's 3, appropriate affect, intact judgment & insight Results CBC & Chem 7: 07/30/18 16:30 06/04/19 16:30 Labs: Abnormal Lab Results - Last 24 Hours (Table) 07/30/18 07/30/18 07/30/18 Range/Units 16:30 16:30 16:30 Eosinophils # 0.9 H (0-0.7) k/uL Chloride 109 H (98-107) mmol/L BUN 22 H (9-20) mg/dL Glucose 127 H (74-99) mg/dL POC Glucose (mg/dL) (75-99) mg/dL AST 175 H (17-59) U/L ALT 289 H (21-72) U/L Urine Protein Trace H (Negative) Urine Blood Trace H (Negative) Urine RBC 8 H (0-5) /hpf Urine Bacteria Rare H (None) /hpf Urine Mucus Few H (None) /hpf 07/31/18 Range/Units 07:04 Eosinophils # (0-0.7) k/uL Chloride (98-107) mmol/L BUN (9-20) mg/dL Glucose (74-99) mg/dL POC Glucose (mg/dL) 139 H (75-99) mg/dL AST (17-59) U/L ALT (21-72) U/L Urine Protein (Negative) Urine Blood (Negative) Urine RBC (0-5) /hpf Urine Bacteria (None) /hpf Urine Mucus (None) /hpf Microbiology - Last 24 Hours (Table) 07/30/18 16:30 Urine Culture - Preliminary Urine,Voided Thrombosis Risk Factor Assmnt - Choose All That Apply Any of the Below Risk Factors Present?: Yes Each Factor Represents 1 point: Age 41-60 years Other Risk Factors: No Thrombosis Risk Factor Assessment Total Risk Factor Score: 1 Thrombosis Risk Factor Assessment Level: Low Risk Assessment and Plan (1) Hypertension Current Visit: Yes Status: Acute Code(s): I10 - ESSENTIAL (PRIMARY) HYPERTENSION SNOMED Code(s): 63431455 (2) Elevated LFTs Current Visit: Yes Status: Acute Code(s): R94.5 - ABNORMAL RESULTS OF LIVER FUNCTION STUDIES SNOMED Code(s): 246298917 (3) Fever Current Visit: Yes Status: Acute Code(s): R50.9 - FEVER, UNSPECIFIED SNOMED Code(s): 481185532 (4) Recently in malaria endemic area Current Visit: Yes Status: Acute Code(s): Z20.89 - CONTACT W AND EXPOSURE TO OTH COMMUNICABLE DISEASES SNOMED Code(s): 467896600 (5) Left ureteral stone Current Visit: No Status: Acute Code(s): N20.1 - CALCULUS OF URETER SNOMED Code(s): 85263243 Plan: Continue supportive management. New pack check CBC and CMP in a.m. per Appreciate infectious disease input. Anticipate discharge in next 24 hours if he continues to improve after ID evaluation. Patient is otherwise full code. Time with Patient: Greater than 30
[2018-07-31] MEDS: INSULIN ASPART (NovoLOG) 100 UNIT/ML VIAL SQ SCH ×4 (08:30→22:04)
[2018-07-31] MEDS: DOXYCYCLINE 100 MG CAP PO SCH ×2 (08:30→22:04)
[2018-07-31] MEDS: MULTIVITAMINS, THERA 1 EACH TAB PO SCH (08:30)
[2018-07-31] MEDS ORDERED: PANTOPRAZOLE 40 MG/10 ML VIAL IV SCH (09:00)
[2018-07-31 11:15] LABS: Glucose,Whole Blood 77 mg/dL (75-99)
[2018-07-31 11:19] LABS: Malarial Thin Smear None seen (None seen)
[2018-07-31 13:50] VITALS: RESP 18
--- NOTE | 2018-07-31 14:29 | P.CONS ---
History of Present Illness - Reason for Consult Consult date: 07/31/18 Fever, possible malaria - History of Present Illness This is a 57-year-old male who gives history that he travels extensively for the past 20 years related to his work. He most recently traveled to [place] and unfortunately suffered from kidney stones and was put on metamizole for pain. He did pass the kidney stones stones and had follow-up with Dr. Carrillo last week and no sign of infection was determined. 2 weeks ago patient was also in [facility] in [facility]. He has traveled to areas with malaria but none this year. He usually takes Mintezol when he does travel to areas with malaria. He has had all travel immunizations completed in the remote past. Patient complains of having a fever between 101 101, chills, sweats and shakes more so at nighttime. He denies any close contacts that are sick, no TB exposure. Patient came in to [facility] emergency center and there was concern for malaria. Blood parasite testing was negative. Temperature max 100.1, white count 9.6, creatinine 0.7. AST 175, ALT 289, alkaline phosphatase 91. Lipase was 100, troponin negative. Urinalysis was negative for infection. Patient was started on doxycycline and quinine and [facility]. Patient was recently seen a Dr. Julian Shepherd for eczema on the left abdomen and a precancerous lesion on his left leg. Review of Systems All systems: negative Constitutional: Reports chills, Reports fatigue, Reports fever, Reports night sweats, Reports sweats Eyes: denies blurred vision, denies pain Ears, nose, mouth and throat: Denies dental pain, Denies dysphagia, Denies headache, Denies nasal congestion, Denies nasal discharge, Denies sore throat, Denies vertigo Cardiovascular: Denies chest pain, Denies decreased exercise tolerance, Denies dyspnea on exertion, Denies edema, Denies leg edema, Denies lightheadedness, Denies shortness of breath, Denies syncope Respiratory: Denies cough, Denies cough with sputum, Denies dyspnea, Denies excessive sputum, Denies hemoptysis, Denies home oxygen, Denies wheezing Gastrointestinal: Denies abdominal pain, Denies diarrhea, Denies loss of appetit e, Denies nausea, Denies vomiting Genitourinary: Denies dysuria, Denies kidney stones, Denies urinary retention Musculoskeletal: Denies frequent falls, Denies gait dysfunction, Denies muscle weakness, Denies myalgias Integumentary: Denies pruritus, Denies rash, Denies wounds Neurological: Denies numbness, Denies weakness Psychiatric: Denies anxiety, Denies depression Endocrine: Denies fatigue, Denies weight change Past Medical History Past Medical History: Hypertension, Thyroid Disorder Additional Past Medical History / Comment(s): THYROID NODULES. NOT DIABETIC, YET ON GLUCOPHAGE FOR "PROTECTIVE PURPOSES". Adrenal adenoma History of Any Multi-Drug Resistant Organisms: None Reported Additional Past Surgical History / Comment(s): THYROID BIOPSY. Past Anesthesia/Blood Transfusion Reactions: No Reported Reaction Past Psychological History: No Psychological Hx Reported Smoking Status: Never smoker Past Alcohol Use History: None Reported Additional Past Alcohol Use History / Comment(s): Patient is a lifelong nonsmoker. He denies any marijuana, illicit drug use or alcohol use. He lives at home with his and 2 Yorkies. He denies any service. Patient travels extensively throughout the world including [place], [place], [place]. Past Drug Use History: None Reported - Past Family History Mother Family Medical History: Diabetes Mellitus Additional Family Medical History / Comment(s): HEPATITIS C. Father Family Medical History: Myocardial Infarction ([place]) Additional Family Medical History / Comment(s): 11CM ELDON. Medications and Allergies Home Medications Medication Instructions Recorded Confirmed Type Atenolol 50 mg PO BID 03/05/15 07/30/18 History Levothyroxine Sodium 50 mcg PO DAILY 03/05/15 07/30/18 History metFORMIN HCL 500 mg PO BID 03/05/15 07/30/18 History Multivitamins, Thera [Multivitamin 1 tab PO DAILY 05/21/16 07/30/18 History (formulary)] Naproxen 500 mg PO BID 07/12/18 07/30/18 History Allergies Allergy/AdvReac Type Severity Reaction Status Date / Time No Known Allergies Allergy Verified 07/30/18 17:05 Physical Exam Vitals: Vital Signs Temp Pulse Pulse Pulse Resp BP BP 07/31/18 05:10 99.5 F 71 20 07/31/18 01:00 98.9 F 07/30/18 22:20 98.5 F 74 20 147/89 07/30/18 21:00 99.5 F 142/91 07/30/18 20:30 152/98 07/30/18 20:00 137/66 07/30/18 19:30 150/89 07/30/18 19:09 99.4 F 76 16 150/89 07/30/18 19:00 154/91 07/30/18 18:30 150/91 07/30/18 18:11 100.0 F H 75 18 150/91 07/30/18 18:00 77 20 135/81 BP Pulse Ox 07/31/18 05:10 156/96 97 07/31/18 01:00 07/30/18 22:20 98 07/30/18 21:00 07/30/18 20:30 97 07/30/18 20:00 98 07/30/18 19:30 97 07/30/18 19:09 97 07/30/18 19:00 07/30/18 18:30 07/30/18 18:11 97 07/30/18 18:00 95 Intake and Output 07/30/18 07/31/18 07/31/18 22:59 06:59 14:59 Intake Total 100 300 Balance 100 300 Intake: Oral 100 300 Other: Voiding Method Toilet # Voids 1 2 Weight 145.15 kg Gen: This is a 57-year-old male. He is resting in bed and appears to be comfortable and in no acute distress. HEENT: Head is atraumatic, normocephalic. Pupils equal, round. Sclerae is anicteric. Conjunctiva pink. Mucous members of the mouth are moist. Dentition is in good order. No oropharyngeal erythema or edema. NECK: Supple. No JVD. No lymphadenopathy. No thyromegaly. LUNGS: Clear to auscultation. No wheezes or rhonchi. No intercostal retractions. HEART: Regular rate and rhythm. No murmur. ABDOMEN: Soft. Bowel sounds are present. No masses. No tenderness. EXTREMITIES: No pedal edema. No calf tenderness. Dorsalis pedis +2 bilaterally. NEUROLOGICAL: Patient is awake, alert and oriented x3. Cranial nerves 2 through 12 are grossly intact. Results Results: Laboratory Results WBC 9.6 k/uL (3.8-10.6) 07/30/18 16:30 RBC 4.90 m/uL (4.30-5.90) 07/30/18 16:30 Hgb 15.1 gm/dL (13.0-17.5) 07/30/18 16:30 Hct 44.2 % (39.0-53.0) 07/30/18 16:30 MCV 90.3 fL (80.0-100.0) 07/30/18 16:30 MCH 30.9 pg (25.0-35.0) 07/30/18 16:30 MCHC 34.2 g/dL (31.0-37.0) 07/30/18 16:30 RDW 14.2 % (11.5-15.5) 07/30/18 16:30 Plt Count 224 k/uL (150-450) 07/30/18 16:30 Neutrophils % 67 % 07/30/18 16:30 Lymphocytes % 15 % 07/30/18 16:30 Monocytes % 7 % 07/30/18 16:30 Eosinophils % 9 % 07/30/18 16:30 Basophils % 1 % 07/30/18 16:30 Neutrophils # 6.5 k/uL (1.3-7.7) 07/30/18 16:30 Lymphocytes # 1.4 k/uL (1.0-4.8) 07/30/18 16:30 Monocytes # 0.6 k/uL (0-1.0) 07/30/18 16:30 Eosinophils # 0.9 k/uL (0-0.7) H 07/30/18 16:30 Basophils # 0.1 k/uL (0-0.2) 07/30/18 16:30 PT 11.1 sec (9.0-12.0) 07/30/18 16:30 INR 1.1 (<1.2) 07/30/18 16:30 APTT 26.1 sec (22.0-30.0) 07/30/18 16:30 Sodium 141 mmol/L (137-145) 07/30/18 16:30 Potassium 4.0 mmol/L (3.5-5.1) 07/30/18 16:30 Chloride 109 mmol/L (98-107) H 07/30/18 16:30 Carbon Dioxide 25 mmol/L (22-30) 07/30/18 16:30 Anion Gap 7 mmol/L 07/30/18 16:30 BUN 22 mg/dL (9-20) H 07/30/18 16:30 Creatinine 0.70 mg/dL (0.66-1.25) 07/30/18 16:30 Est GFR (CKD-EPI)AfAm >90 (>60 ml/min/1.73 sqM) 07/30/18 16:30 Est GFR (CKD-EPI)NonAf >90 (>60 ml/min/1.73 sqM) 07/30/18 16:30 Glucose 127 mg/dL (74-99) H 07/30/18 16:30 POC Glucose (mg/dL) 77 mg/dL (75-99) 07/31/18 11:13 POC Glu Cage Operator ID Joelle Gomez 07/31/18 11:13 Plasma Lactic Acid Hank 2.0 mmol/L (0.7-2.0) 07/30/18 16:30 Calcium 9.3 mg/dL (8.4-10.2) 07/30/18 16:30 Magnesium 2.1 mg/dL (1.6-2.3) 07/30/18 16:30 Total Bilirubin 1.1 mg/dL (0.2-1.3) 07/30/18 16:30 AST 175 U/L (17-59) H 07/30/18 16:30 ALT 289 U/L (21-72) H 07/30/18 16:30 Alkaline Phosphatase 91 U/L (38-126) 07/30/18 16:30 Total Creatine Kinase 61 U/L (55-170) 07/30/18 16:30 CK-MB (CK-2) 0.5 ng/mL (0.0-2.4) 07/30/18 16:30 CK-MB (CK-2) Rel Index 0.8 07/30/18 16:30 Troponin I <0.012 ng/mL (0.000-0.034) 07/30/18 16:30 NT-Pro-B Natriuret Pep 62 pg/mL 07/30/18 16:30 Total Protein 6.9 g/dL (6.3-8.2) 07/30/18 16:30 Albumin 3.8 g/dL (3.5-5.0) 07/30/18 16:30 Amylase 52 U/L (30-110) 07/30/18 16:30 Lipase 100 U/L (23-300) 07/30/18 16:30 Urine Color Yellow 07/30/18 16:30 Urine Appearance Clear (Clear) 07/30/18 16:30 Urine pH 5.5 (5.0-8.0) 07/30/18 16:30 Ur Specific [place] 1.035 (1.001-1.035) 07/30/18 16:30 Urine Protein Trace (Negative) H 07/30/18 16:30 Urine Glucose (UA) Negative (Negative) 07/30/18 16:30 Urine Ketones Negative (Negative) 07/30/18 16:30 Urine Blood Trace (Negative) H 07/30/18 16:30 Urine Nitrite Negative (Negative) 07/30/18 16:30 Urine Bilirubin Negative (Negative) 07/30/18 16:30 Urine Urobilinogen 4.0 mg/dL (<2.0) 07/30/18 16:30 Ur Leukocyte Esterase Negative (Negative) 07/30/18 16:30 Urine RBC 8 /hpf (0-5) H 07/30/18 16:30 Urine WBC 1 /hpf (0-5) 07/30/18 16:30 Urine Bacteria Rare /hpf (None) H 07/30/18 16:30 Urine Mucus Few /hpf (None) H 07/30/18 16:30 Bld Parasite Thin Smr None seen (None seen) 07/30/18 19:06 Bl Parasite Thick Smr None seen (None seen) 07/30/18 19:06 CBC & Chem 7: 07/30/18 16:30 07/30/18 16:30 Labs: Abnormal Lab Results - Last 24 Hours (Table) 07/30/18 07/30/18 07/30/18 Range/Units 16:30 16:30 16:30 Eosinophils # 0.9 H (0-0.7) k/uL Chloride 109 H (98-107) mmol/L BUN 22 H (9-20) mg/dL Glucose 127 H (74-99) mg/dL POC Glucose (mg/dL) (75-99) mg/dL AST 175 H (17-59) U/L ALT 289 H (21-72) U/L Urine Protein Trace H (Negative) Urine Blood Trace H (Negative) Urine RBC 8 H (0-5) /hpf Urine Bacteria Rare H (None) /hpf Urine Mucus Few H (None) /hpf 07/31/18 Range/Units 07:04 Eosinophils # (0-0.7) k/uL Chloride (98-107) mmol/L BUN (9-20) mg/dL Glucose (74-99) mg/dL POC Glucose (mg/dL) 139 H (75-99) mg/dL AST (17-59) U/L ALT (21-72) U/L Urine Protein (Negative) Urine Blood (Negative) Urine RBC (0-5) /hpf Urine Bacteria (None) /hpf Urine Mucus (None) /hpf Microbiology - Last 24 Hours (Table) 07/30/18 16:30 Urine Culture - Preliminary Urine,Voided Assessment and Plan Plan: This is a 57-year-old male presents to the hospital with complaints of fever chills and rigors worse at nighttime with extensive travel history. Blood parasite smears negative. He does have mild elevation in liver enzymes and hepatitis panel will be ordered. The patient does feel improvement after he was started on doxycycline and quinine. No signs at this time of malaria. Continue supportive care. Further recommendations as patient progresses. The above dictated assessment and findings were discussed with Dr. Hernández. The impression and plan of care have been directed as dictated. Tati Zamudio nurse practitioner acting as scribe for Dr. Hernández.
[2018-07-31 16:52] LABS: Glucose,Whole Blood 95 mg/dL (75-99)
[2018-07-31 20:08] LABS: Hepatitis A Antibody IgM Non-Reactive (Non-Reactive); Hepatitis B Core IgM Non-Reactive (Non-Reactive)
[2018-07-31 20:21] LABS: Glucose,Whole Blood 158 mg/dL (75-99)
[2018-07-31 21:39] VITALS: PULSE 71
--- NOTE | 2018-07-31 23:36 | P.CON ---
Consult Note - . Consult date: 07/31/18 Assessment/Plan:: This is a 57-year-old male who gives history that he travels extensively for the past 20 years related to his work. He most recently traveled to [place] and unfortunately suffered from kidney stones and was put on metamizole for pain. He did pass the kidney stones stones with help of tamsulosin and had follow-up with Dr. Carrillo last week and no sign of infection was determined. 2 weeks ago patient was also in [facility] in [facility]. He has traveled to areas with malaria but none this year. He usually takes Mintezol when he does travel to areas with malaria. He has had all travel immunizations completed in the remote past. Patient complains of having a fever between 101 101.5, chills, sweats and shakes more so at nighttime. He denies any close contacts that are sick, no TB exposure. Patient came in to [facility] emergency center and there was concern for malaria. Blood parasite testing was negative. Temperature max 100.1, white count 9.6, creatinine 0.7. AST 175, ALT 289, alkaline phosphatase 91. Lipase was 100, troponin negative. Urinalysis was negative for infection. Patient was started on doxycycline and quinine and admitted to the [facility] floor. Patient was recently seen a Dr. Burks for eczema on the left abdomen and a precancerous lesion on his left leg. Please see the consult note as dictated by nurse practitioner Mrs. Tati Zamudio. 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 The most recent travel destinations were [place] as well as [place]. He hasn't the patient did become ill while he was in [place] with nephrolithiasis and was treated for urinary infection and also received anti-inflammatories for pain and fever control. He was not ill while in [place], but did not take malaria prophylaxis during this trip. There was concerns about malaria upon his return medication was initiated. The patient smears have been reviewed by the laboratory without evidence of any parasites. The patient has no anemia, no thrombocytopenia, and is not having ongoing high-grade fevers at this time. It is distinctly unlikely for him to have malaria and these medications are discontinued. The patient did have recent recent obstructive uropathy of the left ureter and relates that he has been seen by his urologist and is thought that this has cleared. The patient has elevated AST and ALT, has been traveler and consequently hepatitis panel will be requested. The patient relates that he has not had sexual relations with anyone on any of his trips as of late. He does not drink alcohol, and does not utilize recreational drugs. The gallbladder ultrasound is reviewed and does not seem to reveal evidence of cholecystitis. Cultures are currently in process which may further help direct course of therapy, repeat AST and ALT will be requested in the morning. With the patient's clinical improvement will continue doxycycline for now he'll also ask for hemoglobin A1c with a.m. lab. I agree with the evaluation, assessment and plan as dictated by nurse practitioner Mrs. Tati Zamudio.
[2018-08-01] MEDS: LEVOTHYROXINE 50 MCG TAB PO SCH (06:13)
[2018-08-01 06:14] VITALS: BP 156/96; TEMP 98.9
[2018-08-01 07:15] LABS: Glucose,Whole Blood 115 mg/dL (75-99)
--- NOTE | 2018-08-01 07:40 | P.DS ---
Providers Date of admission: 07/30/18 19:12 Attending physician: Serafin Woodson Consults: 07/30/18 19:07 Consult Physician Stat Consulting Provider: Pato Hernández Reason/Comments: fever, poss malaria Do you want consulting provider notified?: Yes Primary care physician: Serafin Woodson - Discharge Diagnosis(es) (1) Hypertension Current Visit: Yes Status: Acute (2) Elevated LFTs Current Visit: Yes Status: Acute (3) Fever Current Visit: Yes Status: Acute (4) Recently in malaria endemic area Current Visit: Yes Status: Acute (5) Left ureteral stone Current Visit: No Status: Acute Hospital Course: The patient is here essentially for significant myalgias and elevation of LFTs. Due to his for travel, there was concern about malaria. Also, medication side effect as he was treated in [place]. The patient is not tolerating diet and will be discharged in stable condition to follow-up with me in about one week. Patient Condition at Discharge: Stable Plan - Discharge Summary Discharge Rx Participant: Yes New Discharge Prescriptions: New Pantoprazole [Protonix] 40 mg PO DAILY #30 tablet. Doxycycline [Vibramycin] 100 mg PO BID 10 Days #20 cap Continue metFORMIN HCL 500 mg PO BID Levothyroxine Sodium 50 mcg PO DAILY Atenolol 50 mg PO BID Multivitamins, Thera [Multivitamin (formulary)] 1 tab PO DAILY Naproxen 500 mg PO BID Discharge Medication List Atenolol 50 mg PO BID 03/05/15 [History] Levothyroxine Sodium 50 mcg PO DAILY 03/05/15 [History] metFORMIN HCL 500 mg PO BID 03/05/15 [History] Multivitamins, Thera [Multivitamin (formulary)] 1 tab PO DAILY 05/21/16 [History] Naproxen 500 mg PO BID 07/12/18 [History] Doxycycline [Vibramycin] 100 mg PO BID 10 Days #20 cap 08/01/18 [Rx] Pantoprazole [Protonix] 40 mg PO DAILY #30 tablet. 08/01/18 [Rx] Follow up Appointment(s)/Referral(s): Serafin Woodson MD [Primary Care Provider] - 2 Weeks Discharge Disposition: HOME SELF-CARE
[2018-08-01] MEDS: INSULIN ASPART (NovoLOG) 100 UNIT/ML VIAL SQ SCH (07:55)
[2018-08-01] MEDS: metFORMIN 500 MG TAB PO SCH (08:07)
[2018-08-01] MEDS: ATENOLOL 50 MG TAB PO SCH (08:07)
[2018-08-01] MEDS: MULTIVITAMINS, THERA 1 EACH TAB PO SCH (08:07)
[2018-08-01] MEDS: DOXYCYCLINE 100 MG CAP PO SCH (08:13)
[2018-08-01 08:58] LABS: HCT 44.2 % (39.0-53.0); HGB 15.3 gm/dL (13.0-17.5); MCH 31.3 pg (25.0-35.0); MCHC 34.6 g/dL (31.0-37.0); MCV 90.6 fL (80.0-100.0); Mean Platelet Volume 7.4; Platelet Count 228 k/uL (150-450); RBC 4.88 m/uL (4.30-5.90); RDW 14.2 % (11.5-15.5); WBC 14.1 k/uL (3.8-10.6)
[2018-08-01] MEDS ORDERED: PANTOPRAZOLE 40 MG TABLET PO SCH (09:00)
[2018-08-01 09:09] LABS: ALT 296 U/L (21-72); AST 109 U/L (17-59); African American GFR (CKD) >90 (>60 ml/min/1.73 sqM); Albumin 3.9 g/dL (3.5-5.0); Alkaline Phosphatase 94 U/L (38-126); Anion Gap 10 mmol/L; Blood Urea Nitrogen 14 mg/dL (9-20); Calcium 9.2 mg/dL (8.4-10.2); Carbon Dioxide 24 mmol/L (22-30); Chloride 106 mmol/L (98-107); Glucose 129 mg/dL (74-99); Potassium 3.7 mmol/L (3.5-5.1); Sodium 140 mmol/L (137-145); Total Bilirubin 1.1 mg/dL (0.2-1.3); Total Protein 7.2 g/dL (6.3-8.2)
[2018-08-01 18:22] LABS: Hemoglobin A1C 5.1 % (4.0-6.0)
== END 2018-08-01 08:36 | disposition home or self-care (01) ==
LOC: EC 15:00 → 4MS4W 19:12
PROVIDERS: ADMIT Family Medicine; ATTEND Family Medicine
DX: R50.9 Fever, unspecified (principal); M79.10 Myalgia, unspecified site; I10 Essential (primary) hypertension; R79.89 Other specified abnormal findings of blood chemistry; R74.8 Abnormal levels of other serum enzymes; Z87.442 Personal history of urinary calculi; Z79.84 Long term (current) use of oral hypoglycemic drugs; Z79.890 Hormone replacement therapy; Z79.899 Other long term (current) drug therapy; Z82.49 Family history of ischemic heart disease and other diseases of the circulatory system; Z83.3 Family history of diabetes mellitus; Z79.1 Long term (current) use of non-steroidal anti-inflammatories (NSAID)
CPT/HCPCS: 96360; 99285; 36415; 93005; 83880; 80053 ×2; 80074; 82150; 82550; 82553; 83605; 83690; 83735; 84484; 85025; 85027; 85610; 85730; 81001; 87040; 87207; 87086; 83036; 71046; 76705; G0378 ×3

== ENCOUNTER → 2019-04-15 | Outpatient (CLI) | payer BC ==
[2019-04-15 23:38] LABS: African American GFR (CKD) 96.4 (60.0-200.0); Albumin 4.2 g/dL (3.80-4.90); Anion Gap 7.9 mmol/L (4.00-12.00); Calcium 9.4 mg/dL (8.7-10.3); Carbon Dioxide 30.1 mmol/L (21.6-31.8); Chol/HDL Ratio 3.83; Globulin 2.1 g/dL (1.6-3.3); LDL Cholesterol,Calculated 139.8 mg/dL (0.0-131.0); Non-African American GFR(CKD) 83.2 (60.0-200.0); Potassium 3.9 mmol/L (3.5-5.5); Total Bilirubin 0.6 mg/dL (0.2-1.2); Total Protein 6.3 g/dL (6.2-8.2); VLDL Calculation 24.2 mg/dL (5.00-40.00)
== END | disposition home or self-care (01) ==
LOC: LABWHC1 16:44
PROVIDERS: ATTEND Internal Medicine Clinical Cardiac Electrophysiology
DX: I10 Essential (primary) hypertension (principal); I49.3 Ventricular premature depolarization; E78.5 Hyperlipidemia, unspecified; R73.03 Prediabetes
CPT/HCPCS: 36415; 80053; 80061; 84443

== ENCOUNTER 2020-02-20 00:51 | Inpatient (IN) | payer BC, MEDICARE ==
[~2020-02-20 00:51] MED LIST: EPINEPHrine 10 ML SYRINGE (0.1 MG/ML) ONE; SODIUM BICARB 8.4% 50 ML SYR (1 MEQ/ML) ONE
--- NOTE | 2020-02-20 01:07 | XR ---
EXAM: XR Chest, 1 View CLINICAL HISTORY: ITS.REASON XR Reason: Cardiac arrest TECHNIQUE: Frontal view of the chest. COMPARISON: 05/21/2016. FINDINGS: Lungs: Prominence of central pulmonary vascular compatible with incipient congestive heart failure. Subsegmental atelectasis at the left lung base. Pleural space: Unremarkable. No pneumothorax. Heart: Cardiomegaly. Mediastinum: Unremarkable. Bones/joints: Osteopenia. Tubes, lines and devices: Endotracheal tube is noted in place approximate 1 cm above the tristian. Other findings: Marked hypoaeration. IMPRESSION: 1. Hypoaeration. 2. Cardiomegaly. 3. Findings of incipient congestive heart failure. 4. Subsegmental atelectasis at the left lung base.
[2020-02-20] MEDS ORDERED: NOREPINEPHRINE 4 MG in SODIUM CHLORIDE 0.9% 250 ML IV ONE (01:15)
[2020-02-20] MEDS ORDERED: SODIUM CHLORIDE 0.9% 1,000 ML IV STA ×3 (01:25→02:57)
[2020-02-20] MEDS: NOREPINEPHRINE 32 MG in SODIUM CHLORIDE 0.9% 218 ML IV ONE ×4 (01:55→21:55)
[2020-02-20] MEDS ORDERED: Alteplase PER PHARMACY Stroke 1 EACH MISC MISCELLANE PRN (02:00)
--- NOTE | 2020-02-20 02:05 | CT ---
ADDENDUM - Added by Conor Dill MD on 02/20/2020 2:10 AM (-08:00) Please make the following correction. Additional significant pulmonary emboli are noted within the branches heading to the right lower lobe best seen on coronal image 110. EXAM: CT Angiography Chest With Intravenous Contrast CLINICAL HISTORY: Cardiac arrest. TECHNIQUE: Axial computed tomographic angiography images of the chest with intravenous contrast. CTDI is 65.984 mGy and DLP is 1225.6 mGy-cm. This CT exam was performed using one or more of the following dose reduction techniques: automated exposure control, adjustment of the mA and/or kV according to patient size, and/or use of iterative reconstruction technique. MIP reconstructed images were created and reviewed. COMPARISON: 02/20/2020, plain film evaluation of the chest. FINDINGS: Pulmonary arteries: There is a very large 5 x 2 x 4.5 cm pulmonary embolism within the left main pulmonary artery. Peripheral pulmonary emboli within the vessels leading to the left lower lobe. Aorta: No acute findings. No thoracic aortic aneurysm. Lungs: Patchy airspace disease posteriorly at the lung bases as well as in the right upper lobe possibly in the basilar multifocal pneumonias. No mass. Pleural space: Unremarkable. No significant effusion. No pneumothorax. Heart: Unremarkable. No cardiomegaly. No significant pericardial effusion. No evidence of RV dysfunction. Bones/joints: See below. Soft tissues: Unremarkable. Lymph nodes: Unremarkable. No enlarged lymph nodes. Liver: Fatty liver. Moderate to severe degenerative disc disease of the thoracic spine. Tubes, lines and devices: Endotracheal tube is noted in place above the tristian, in good position. Other findings: There is hypoaeration. IMPRESSION: 1. The dominant finding on the current study is a large pulmonary embolus within the left main pulmonary artery. 2. Additional peripheral pulmonary emboli are noted within the branches heading to the left lower lobe. 3. Hypoaeration. 4. Patchy areas of consolidation both lungs. 5. Cardiomegaly. <MYCVCSECTION> Communications: 02/20/20 02:09 Call Doctor Regarding Pulmonary Embolism, called Dr. Yu on 02/19 02:08 (-05:00)
[2020-02-20] MEDS ORDERED: ALTEPLASE 100 MG in EMPTY BAG 1 BAG IV ONE (02:08)
[2020-02-20 02:10] LABS: HCT 41.8 % (39.0-53.0); HGB 12.7 gm/dL (13.0-17.5); Hypochromasia Moderate; MCHC 30.4 g/dL (31.0-37.0); Macrocytosis Slight; Mean Platelet Volume 7.9; Platelet Count 159 k/uL (150-450); RBC 4.09 m/uL (4.30-5.90); RDW 13.3 % (11.5-15.5)
[2020-02-20 02:15] LABS: Albumin 2.9 g/dL (3.5-5.0); Appearance,Urine Turbid (Clear); Bacteria,Urine Many /hpf; Bilirubin,Urine Negative (Negative); Blood,Urine Small (Negative); Calcium 8.2 mg/dL (8.4-10.2); Color,Urine Yellow; Glucose,Urine (UA) Negative (Negative); Ketones,Urine Negative (Negative); Leukocyte Esterase,Urine Negative (Negative); Magnesium 2.9 mg/dL (1.6-2.3); Mucus,Urine Occasional /hpf; Nitrite,Urine Negative (Negative); Potassium 3.3 mmol/L (3.5-5.1); Protein,Urine 2+ (Negative); RBC,Urine 36 /hpf (0-5); Specific Gravity,Urine 1.021 (1.001-1.035); Sperm,Urine Many /hpf; Squamous Epithelial Cell,Urine 2 /hpf (0-4); Total Bilirubin 0.4 mg/dL (0.2-1.3); Total Protein 5.4 g/dL (6.3-8.2); Urobilinogen,Urine <2.0 mg/dL (<2.0); WBC,Urine 13 /hpf (0-5)
[2020-02-20] MEDS ORDERED: HEPARIN SODIUM,PORCINE 5,000 UNIT/ML 1 ML VIAL IV PRN ×2 (02:17→12:49)
[2020-02-20] MEDS ORDERED: HEPARIN SODIUM,PORCINE 10,000 UNIT/ML 1 ML VIAL IV ONE (02:17)
[2020-02-20 02:23] LABS: INR 1.1 (<1.2); Partial Thromboplastin Time 25.1 sec (22.0-30.0); Prothrombin Time 11.2 sec (9.0-12.0)
[2020-02-20 02:26] LABS: ABG Base Excess -7.7 mmol/L; ABG HCO3 21 mmol/L (21-25); ABG PCO2 55 mmHg (35-45); ABG PO2 284 mmHg (83-108); ABG TCO2 22 mmol/L (19-24); Allen Test Performed? Yes
[2020-02-20] MEDS ORDERED: HEPARIN SOD,PORK IN 0.45% NACL 25,000 UNIT in 0.45% NACL 1 250ML.BAG IV SCH ×2 (02:30→13:00)
--- NOTE | 2020-02-20 02:32 | ED ---
CPR HPI - General Chief Complaint: Cardiac Arrest/CPR Stated Complaint: Cardiac arrest Source: EMS, RN notes reviewed, old records reviewed Mode of arrival: EMS Limitations: altered mental status - History of Present Illness Initial Comments: This is a 59-year-old male to the ER for evaluation, she Dese for evaluation regarding 7 cardiac arrest EMS brings patient in and CPR cardiac arrest patient. EMS was called the patient's house as patient is having significant shortness of breath other history is otherwise unknown patient was unable to speak upon EMS arrival became severe short of breath began to become dusky and changing colors then became apneic patient did lose consciousness without pulse, apneic again. CPR was initiated patient is being brought into the emergency room. An echo history is patient does have high blood pressure high cholesterol diabetes as well as recent back surgery MD Complaint: found unresponsive, stopped breathing, collapsed during rest Place: home Bystander CPR Performed: Yes AED Applied by Bystander/Clinical Scientist: No Shock Advised: No Initial Findings in the Field: alert (Significant right short of breath) ROSC in the Field: Yes (After one appendectomy) Associated Injuries: No Associated Symptoms: shortness of breath Treatments Prior to Arrival: epinephrine mgs # - Related Data Home Medications Medication Instructions Recorded Confirmed Levothyroxine Sodium 50 mcg PO DAILY 03/05/15 02/20/20 atenoloL [Atenolol] 50 mg PO BID 03/05/15 02/20/20 metFORMIN HCL 500 mg PO BID 03/05/15 02/20/20 Naproxen 500 mg PO BID 07/12/18 02/20/20 Atorvastatin Calcium [Lipitor] 40 mg PO DAILY 02/20/20 02/20/20 Gabapentin 300 mg PO Q8H PRN 02/20/20 02/20/20 Tamsulosin HCl [Flomax] 0.8 mg PO DAILY 02/20/20 02/20/20 Triamterene/Hydrochlorothiazid 1 cap PO DAILY 02/20/20 02/20/20 [Dyazide 37.5-25 Capsule] methocarbamoL [Robaxin] 750 mg PO Q8HR PRN 02/20/20 02/20/20 traMADol HCL 100 mg PO Q6H PRN 02/20/20 02/20/20 Allergies Allergy/AdvReac Type Severity Reaction Status Date / Time No Known Allergies Allergy Verified 02/20/20 01:10 Review of Systems ROS Statement: Those systems with pertinent positive or pertinent negative responses have been documented in the HPI. ROS Other: All systems not noted in ROS Statement are negative. Past Medical History Past Medical History: Hypertension, Thyroid Disorder Additional Past Medical History / Comment(s): THYROID NODULES. NOT DIABETIC, YET ON GLUCOPHAGE FOR "PROTECTIVE PURPOSES". Adrenal adenoma History of Any Multi-Drug Resistant Organisms: None Reported Additional Past Surgical History / Comment(s): THYROID BIOPSY. Past Anesthesia/Blood Transfusion Reactions: No Reported Reaction Past Psychological History: No Psychological Hx Reported Past Alcohol Use History: None Reported Past Drug Use History: None Reported - Past Family History Mother Family Medical History: Diabetes Mellitus Additional Family Medical History / Comment(s): HEPATITIS C. Father Family Medical History: Myocardial Infarction ([place]) Additional Family Medical History / Comment(s): 11CM ANUERSYM. General Exam Limitations: altered mental status, physical limitation General appearance: lethargic, cachectic Head exam: Present: atraumatic, normocephalic, normal inspection Eye exam: Present: other (fixed and dilated) ENT exam: Present: normal exam, mucous membranes moist Neck exam: Present: normal inspection. Absent: tenderness, meningismus, lymphadenopathy Respiratory exam: Present: respiratory distress, wheezes, rales, rhonchi, stridor, decreased breath sounds, prolonged expiratory, other (apnea) Cardiovascular Exam: Present: tachycardia, irregular rhythm, normal heart sounds. Absent: systolic murmur, diastolic murmur, rubs, gallop, clicks GI/Abdominal exam: Present: soft, normal bowel sounds. Absent: distended, tenderness, guarding, rebound, rigid Extremities exam: Present: normal inspection, full ROM, normal capillary refill. Absent: tenderness, pedal edema, joint swelling, calf tenderness Back exam: Present: normal inspection Psychiatric exam: Present: normal affect, normal mood Skin exam: Present: warm, dry, intact, normal color. Absent: rash Course Vital Signs 02/20/20 02/20/20 02/20/20 01:08 01:22 01:32 Temperature Pulse Rate 146 H 110 H 110 H Respiratory 14 14 Rate Blood Pressure 104/68 170/93 112/84 O2 Sat by Pulse Oximetry 02/20/20 02/20/20 02/20/20 01:55 02:00 02:12 Temperature 97.5 F L Pulse Rate 133 H 138 H 156 H Respiratory 14 16 16 Rate Blood Pressure 114/83 142/105 O2 Sat by Pulse 97 Oximetry 02/20/20 02/20/20 02/20/20 02:15 02:20 02:26 Temperature Pulse Rate 156 H 158 H 118 H Respiratory 14 14 14 Rate Blood Pressure 146/121 174/149 177/119 O2 Sat by Pulse 98 Oximetry 02/20/20 02/20/20 02/20/20 02:30 02:35 02:40 Temperature Pulse Rate 109 H 122 H 121 H Respiratory 14 14 14 Rate Blood Pressure 168/119 140/109 120/104 O2 Sat by Pulse Oximetry 02/20/20 02/20/20 02/20/20 02:45 03:00 03:10 Temperature Pulse Rate 123 H 123 H 134 H Respiratory 14 16 16 Rate Blood Pressure 121/100 124/109 134/93 O2 Sat by Pulse 100 96 Oximetry 02/20/20 02/20/20 03:40 04:20 Temperature 97.5 F L Pulse Rate 124 H 125 H Respiratory 16 16 Rate Blood Pressure 118/85 155/89 O2 Sat by Pulse 93 L Oximetry - Reevaluation(s) Reevaluation #1: Medical record is reviewed Patient does have return of spontaneous circulation here in the emergency department. Central line was placed, patient did not need pressors while in emergency department as vital signs continued to improve, showing atrial fibrillation Patient was given TPA secondary large PE and then anticoagulated Long conversation was held with regarding patient's prognosis, questions are answered - Consultations Consultation #1: Did speak with vascular surgery, patient is not on blood candidate, encouraged TPA followed by anticoagulation Spoke with ICU who accepted patient's admission Procedures - Central Line Placement Right IJ Consent Obtained: verbal consent Patient Placed on Monitor/Pulse Ox: Yes MD Prep: mask, gown, gloves Central Line Prep: sterile drapes applied Local Anesthesia Used: Lidocaine 1% Ultrasound Used for Placement: Yes Central Line Lumen Inserted: triple Bloods Obtained for Lab: Yes Central Line Position: good blood return, all ports aspirated, flushed, capped, sutured in place with 2-0 silk Dressing Applied: Tegaderm Patient Tolerated Procedure: well Complications: none - Intubation Laryngoscope: Chandrakant Size: 4 ET Tube Size: 7.5 ET Tube Uncuffed: No Tube Secured Location: teeth Tube Placement Confirmation: visualized tube passing through cords, equal breath sounds bilaterally, no breath sounds over epigastrium, confirmation by capnometry Patient Tolerated Procedure: well Intubation Complications: none Medical Decision Making - Medical Decision Making 51 male DF for evaluation, patient brought initially were sudden history cardiac arrest, inability to breathe related hypoxia patient later found out to have large pulmonary embolism likely causing first diagnosis. Patient was able to return spontaneous circulation but showing no purposeful neurologic movement. Patient will be admitted ICU for further evaluation management - Lab Data Result diagrams: 02/21/20 04:22 02/21/20 12:53 Lab Results 02/20/20 02/20/20 02/20/20 Range/Units 01:30 01:30 01:30 WBC 13.2 H (3.8-10.6) k/uL RBC 4.09 L (4.30-5.90) m/uL Hgb 12.7 L (13.0-17.5) gm/dL Hct 41.8 (39.0-53.0) % MCV 102.0 H (80.0-100.0) fL MCH 31.0 (25.0-35.0) pg MCHC 30.4 L (31.0-37.0) g/dL RDW 13.3 (11.5-15.5) % Plt Count 159 (150-450) k/uL MPV 7.9 Neutrophils % Not Reportable Neutrophils % (Manual) 51 % Band Neuts % (Manual) 7 % Lymphocytes % Not Reportable Lymphocytes % (Manual) 35 % Monocytes % Not Reportable Monocytes % (Manual) 3 % Eosinophils % Not Reportable Eosinophils % (Manual) 3 % Basophils % Not Reportable Metamyelocytes % 2 % Myelocytes % 1 % Neutrophils # Not Reportable Neutrophils # (Manual) 7.60 (1.3-7.7) k/uL Lymphocytes # Not Reportable Lymphocytes # (Manual) 4.62 (1.0-4.8) k/uL Monocytes # Not Reportable Monocytes # (Manual) 0.40 (0-1.0) k/uL Eosinophils # Not Reportable Eosinophils # (Manual) 0.40 (0-0.7) k/uL Basophils # Not Reportable Metamyelocytes # (Man) 0.26 H (0) k/uL Myelocytes # (Manual) 0.13 H (0) k/uL Nucleated RBCs 1 H (0-0) /100 WBC Manual Slide Review Performed Large Platelets Present Polychromasia Present Hypochromasia Moderate Poikilocytosis (manual Present Anisocytosis (manual) Present Macrocytosis Slight PT 11.2 (9.0-12.0) sec INR 1.1 (<1.2) APTT 25.1 (22.0-30.0) sec Sample Site ABG pH (7.35-7.45) ABG pCO2 (35-45) mmHg ABG pO2 (83-108) mmHg ABG HCO3 (21-25) mmol/L ABG Total CO2 (19-24) mmol/L ABG O2 Saturation (94-97) % ABG Base Excess mmol/L Marcus Test FiO2 % Sodium (137-145) mmol/L Potassium (3.5-5.1) mmol/L Chloride (98-107) mmol/L Carbon Dioxide (22-30) mmol/L Anion Gap mmol/L BUN (9-20) mg/dL Creatinine (0.66-1.25) mg/dL Est GFR (CKD-EPI)AfAm (>60 ml/min/1.73 sqM) Est GFR (CKD-EPI)NonAf (>60 ml/min/1.73 sqM) Glucose (74-99) mg/dL Lactic Ac Sepsis Rflx Plasma Lactic Acid Hank (0.7-2.0) mmol/L Calcium (8.4-10.2) mg/dL Phosphorus (2.5-4.5) mg/dL Magnesium (1.6-2.3) mg/dL Total Bilirubin (0.2-1.3) mg/dL AST (17-59) U/L ALT (4-49) U/L Alkaline Phosphatase (38-126) U/L Creatine Kinase (55-170) U/L Troponin I (0.000-0.034) ng/mL Total Protein (6.3-8.2) g/dL Albumin (3.5-5.0) g/dL Urine Color Yellow Urine Appearance Turbid (Clear) Urine pH 6.0 (5.0-8.0) Ur Specific [place] 1.021 (1.001-1.035) Urine Protein 2+ H (Negative) Urine Glucose (UA) Negative (Negative) Urine Ketones Negative (Negative) Urine Blood Small H (Negative) Urine Nitrite Negative (Negative) Urine Bilirubin Negative (Negative) Urine Urobilinogen <2.0 (<2.0) mg/dL Ur Leukocyte Esterase Negative (Negative) Urine RBC 36 H (0-5) /hpf Urine WBC 13 H (0-5) /hpf Ur Squamous Epith Cells 2 (0-4) /hpf Urine Bacteria Many H (None) /hpf Urine Mucus Occasional H (None) /hpf Urine Sperm Many H (None) /hpf Blood Type Confirm 02/20/20 02/20/20 02/20/20 Range/Units 01:30 01:30 01:30 WBC (3.8-10.6) k/uL RBC (4.30-5.90) m/uL Hgb (13.0-17.5) gm/dL Hct (39.0-53.0) % MCV (80.0-100.0) fL MCH (25.0-35.0) pg MCHC (31.0-37.0) g/dL RDW (11.5-15.5) % Plt Count (150-450) k/uL MPV Neutrophils % Neutrophils % (Manual) % Band Neuts % (Manual) % Lymphocytes % Lymphocytes % (Manual) % Monocytes % Monocytes % (Manual) % Eosinophils % Eosinophils % (Manual) % Basophils % Metamyelocytes % % Myelocytes % % Neutrophils # Neutrophils # (Manual) (1.3-7.7) k/uL Lymphocytes # Lymphocytes # (Manual) (1.0-4.8) k/uL Monocytes # Monocytes # (Manual) (0-1.0) k/uL Eosinophils # Eosinophils # (Manual) (0-0.7) k/uL Basophils # Metamyelocytes # (Man) (0) k/uL Myelocytes # (Manual) (0) k/uL Nucleated RBCs (0-0) /100 WBC Manual Slide Review Large Platelets Polychromasia Hypochromasia Poikilocytosis (manual Anisocytosis (manual) Macrocytosis PT (9.0-12.0) sec INR (<1.2) APTT (22.0-30.0) sec Sample Site ABG pH (7.35-7.45) ABG pCO2 (35-45) mmHg ABG pO2 (83-108) mmHg ABG HCO3 (21-25) mmol/L ABG Total CO2 (19-24) mmol/L ABG O2 Saturation (94-97) % ABG Base Excess mmol/L Marcus Test FiO2 % Sodium 140 (137-145) mmol/L Potassium 3.3 L (3.5-5.1) mmol/L Chloride 103 (98-107) mmol/L Carbon Dioxide 20 L (22-30) mmol/L Anion Gap 17 mmol/L BUN 18 (9-20) mg/dL Creatinine 1.15 (0.66-1.25) mg/dL Est GFR (CKD-EPI)AfAm 81 (>60 ml/min/1.73 sqM) Est GFR (CKD-EPI)NonAf 70 (>60 ml/min/1.73 sqM) Glucose 318 H (74-99) mg/dL Lactic Ac Sepsis Rflx Plasma Lactic Acid Hank (0.7-2.0) mmol/L Calcium 8.2 L (8.4-10.2) mg/dL Phosphorus 10.6 H* (2.5-4.5) mg/dL Magnesium 2.9 H (1.6-2.3) mg/dL Total Bilirubin 0.4 (0.2-1.3) mg/dL AST 313 H (17-59) U/L ALT 196 H (4-49) U/L Alkaline Phosphatase 107 (38-126) U/L Creatine Kinase 138 (55-170) U/L Troponin I 0.056 H* (0.000-0.034) ng/mL Total Protein 5.4 L (6.3-8.2) g/dL Albumin 2.9 L (3.5-5.0) g/dL Urine Color Urine Appearance (Clear) Urine pH (5.0-8.0) Ur Specific [place] (1.001-1.035) Urine Protein (Negative) Urine Glucose (UA) (Negative) Urine Ketones (Negative) Urine Blood (Negative) Urine Nitrite (Negative) Urine Bilirubin (Negative) Urine Urobilinogen (<2.0) mg/dL Ur Leukocyte Esterase (Negative) Urine RBC (0-5) /hpf Urine WBC (0-5) /hpf Ur Squamous Epith Cells (0-4) /hpf Urine Bacteria (None) /hpf Urine Mucus (None) /hpf Urine Sperm (None) /hpf Blood Type Confirm A Negative 02/20/20 02/20/20 02/20/20 Range/Units 02:02 02:17 02:40 WBC (3.8-10.6) k/uL RBC (4.30-5.90) m/uL Hgb (13.0-17.5) gm/dL Hct (39.0-53.0) % MCV (80.0-100.0) fL MCH (25.0-35.0) pg MCHC (31.0-37.0) g/dL RDW (11.5-15.5) % Plt Count (150-450) k/uL MPV Neutrophils % Neutrophils % (Manual) % Band Neuts % (Manual) % Lymphocytes % Lymphocytes % (Manual) % Monocytes % Monocytes % (Manual) % Eosinophils % Eosinophils % (Manual) % Basophils % Metamyelocytes % % Myelocytes % % Neutrophils # Neutrophils # (Manual) (1.3-7.7) k/uL Lymphocytes # Lymphocytes # (Manual) (1.0-4.8) k/uL Monocytes # Monocytes # (Manual) (0-1.0) k/uL Eosinophils # Eosinophils # (Manual) (0-0.7) k/uL Basophils # Metamyelocytes # (Man) (0) k/uL Myelocytes # (Manual) (0) k/uL Nucleated RBCs (0-0) /100 WBC Manual Slide Review Large Platelets Polychromasia Hypochromasia Poikilocytosis (manual Anisocytosis (manual) Macrocytosis PT (9.0-12.0) sec INR (<1.2) APTT (22.0-30.0) sec Sample Site rrad ABG pH 7.19 L* (7.35-7.45) ABG pCO2 55 H (35-45) mmHg ABG pO2 284 H (83-108) mmHg ABG HCO3 21 (21-25) mmol/L ABG Total CO2 22 (19-24) mmol/L ABG O2 Saturation 100.0 H (94-97) % ABG Base Excess -7.7 mmol/L Marcus Test Yes FiO2 100 % Sodium (137-145) mmol/L Potassium (3.5-5.1) mmol/L Chloride (98-107) mmol/L Carbon Dioxide (22-30) mmol/L Anion Gap mmol/L BUN (9-20) mg/dL Creatinine (0.66-1.25) mg/dL Est GFR (CKD-EPI)AfAm (>60 ml/min/1.73 sqM) Est GFR (CKD-EPI)NonAf (>60 ml/min/1.73 sqM) Glucose (74-99) mg/dL Lactic Ac Sepsis Rflx Y Plasma Lactic Acid Hank 15.3 H* (0.7-2.0) mmol/L Calcium (8.4-10.2) mg/dL Phosphorus (2.5-4.5) mg/dL Magnesium (1.6-2.3) mg/dL Total Bilirubin (0.2-1.3) mg/dL AST (17-59) U/L ALT (4-49) U/L Alkaline Phosphatase (38-126) U/L Creatine Kinase (55-170) U/L Troponin I (0.000-0.034) ng/mL Total Protein (6.3-8.2) g/dL Albumin (3.5-5.0) g/dL Urine Color Urine Appearance (Clear) Urine pH (5.0-8.0) Ur Specific [place] (1.001-1.035) Urine Protein (Negative) Urine Glucose (UA) (Negative) Urine Ketones (Negative) Urine Blood (Negative) Urine Nitrite (Negative) Urine Bilirubin (Negative) Urine Urobilinogen (<2.0) mg/dL Ur Leukocyte Esterase (Negative) Urine RBC (0-5) /hpf Urine WBC (0-5) /hpf Ur Squamous Epith Cells (0-4) /hpf Urine Bacteria (None) /hpf Urine Mucus (None) /hpf Urine Sperm (None) /hpf Blood Type Confirm - EKG Data -: EKG Interpreted by Me (EKG is atrial flutter 134 QRS 92 QTC 456) EKG Comments: Prehospital EKG showed atrial tachycardia of [address] and ST elevation - Radiology Data Radiology results: report reviewed (CTA chest to show significantly large PE), image reviewed Critical Care Time Critical Care Time: Yes Total Critical Care Time: 95 Disposition Clinical Impression: Cardiac arrest, Acute Massive Pulmonary Embolism Disposition: ADMITTED IP TO THIS [facility] Condition: Critical Is patient prescribed a controlled substance at d/c from ED?: No
[2020-02-20 02:39] LABS: Phosphorus 10.6 mg/dL (2.5-4.5)
[2020-02-20] MEDS ORDERED: NALOXONE 0.4 MG/ML 1 ML VIAL IV PRN (02:58)
[2020-02-20 03:04] LABS: Band Neutrophils % 7 %; Metamyelocytes % 2 %; Myelocytes # (M) 0.13 k/uL (0); Myelocytes % 1 %; Neutrophils % (M) 51 %; Nucleated Red Blood Cells 1 /100 WBC (0-0); Total Cells Counted 200
[2020-02-20 03:05] LABS: Anisocytosis (M) Present; Lymphocytes # (M) 4.62 k/uL (1.0-4.8); Metamyelocytes # (M) 0.26 k/uL (0); Polychromasia Present; WBC 13.2 k/uL (3.8-10.6)
[2020-02-20 03:07] LABS: Large Platelets Present
[2020-02-20 03:08] LABS: Poikilocytosis (M) Present
[2020-02-20] MEDS ORDERED: DEXTROSE 5%-0.45% NACL 1,000 ML IV SCH (04:30)
[2020-02-20] MEDS ORDERED: LORazepam 2 MG/ML INJ IV STA (04:30)
[2020-02-20] MEDS ORDERED: propofoL 100 ML IV ONE (04:58)
[2020-02-20] MEDS ORDERED: NOREPINEPHRIN 4 MG-0.9% NS PMX 4 MG/250 ML ML IV ONE (04:58)
[2020-02-20] MEDS ORDERED: DEXTROSE 5% IN WATER 100 ML with AMIODARONE 150 MG IV ONE (06:00)
[2020-02-20 06:02] LABS: ABG Base Excess -4.5 mmol/L; ABG HCO3 21 mmol/L (21-25); ABG Oxygen Saturation 98.8 % (94-97); ABG PCO2 38 mmHg (35-45); ABG PH 7.35 (7.35-7.45); ABG PO2 108 mmHg (83-108); ABG TCO2 22 mmol/L (19-24); Allen Test Performed? Yes
[2020-02-20] MEDS ORDERED: AMIODARONE 360 MG in DEXTROSE 5% IN WATER 200 ML IV ONE ×2 (06:15)
--- NOTE | 2020-02-20 06:53 | XR ---
EXAM: XR Chest, 1 View CLINICAL HISTORY: ITS.REASON XR Reason: Tube placement TECHNIQUE: Frontal view of the chest. COMPARISON: 02/20/2020 IMPRESSION: ET tube terminates 5 cm from the tristian. NG tube side port terminates in the proximal stomach.
[2020-02-20 07:05] LABS: HCT 39.5 % (39.0-53.0); HGB 13.4 gm/dL (13.0-17.5); Hypochromasia Slight; MCH 32.6 pg (25.0-35.0); Mean Platelet Volume 8.4; Poikilocytosis Slight; RBC 4.13 m/uL (4.30-5.90); RDW 13.2 % (11.5-15.5); WBC 38.3 k/uL (3.8-10.6)
[2020-02-20 07:14] LABS: MCV 95.6 fL (80.0-100.0); Platelet Count 323 k/uL (150-450)
[2020-02-20] MEDS ORDERED: IPRATROPIUM-ALBUTEROL 3 ML NEB INHALATION SCH (08:00)
[2020-02-20 08:51] LABS: Albumin 3.3 g/dL (3.5-5.0); Calcium 7.7 mg/dL (8.4-10.2); Phosphorus 6.7 mg/dL (2.5-4.5); Total Bilirubin 1.1 mg/dL (0.2-1.3); Total Protein 6.3 g/dL (6.3-8.2)
[2020-02-20 08:52] LABS: Magnesium 2.2 mg/dL (1.6-2.3); Potassium 4.4 mmol/L (3.5-5.1)
[2020-02-20] MEDS: CHLORHEXIDINE GLUCONATE 15 ML CUP MUCOUS MEM SCH ×2 (09:08→20:48)
[2020-02-20] MEDS: PANTOPRAZOLE 40 MG/10 ML VIAL IV SCH (09:08)
--- NOTE | 2020-02-20 09:37 | P.CNPUL ---
History of Present Illness Consult date: 02/20/20 Requesting physician: Serafin Woodson Reason for consult: other (Critical care management) Chief complaint: Cardiac arrest History of present illness: This is a 59-year-old gentleman who follows with Dr. Woodson as his primary care provider. He has history of hypertension, hyperlipidemia, hypothyroidism, diabetes mellitus. He had recently undergone back surgery at [facility] earlier this week. Last evening his on him to be diaphoretic. He is complaining of shortness of breath. He was brought in by EMS shortly after midnight and while in the ambulance he went into cardiac arrest. He was also in cardiac arrest several more times in the emergency room with an approximate down time of 29 minutes. He was intubated and placed on mechanical ventilation after obtaining the return of spontaneous circulation. 2 amps of bicarb had been given. He received 2 L of fluid resuscitation. CT angiogram revealed a very large 5 x 2 x 4.5 cm pulmonary embolism within the left main pulmonary artery. There is peripheral pulmonary emboli within the vessels leading to the left lower lobe. Patchy airspace disease posterior lung bases as well. He was given TPA in the emergency room. He was also found to be in atrial fibrillation with rapid ventricular response. Current vent settings are assist-control with respiratory rate of 22, tidal volume 500, FiO2 60% and a PEEP of 5. Blood gases revealed a PaO2 of 108, pCO2 38, pH 7.35. He is sedated on propofol at 25 mcg/kg/m. Amiodarone at 1 mg/m. 0.9 normal saline at 130 ML's per hour. Norepinephrine currently on hold. He is currently triggering the ventilator. Pupillary responses intact. No significant gag reflex. Absent doll's eyes. No response to verbal or painful stimuli. There is a significant amount of blood noted posteriorly from the recent back surgery. Heparin drip currently on hold. White count 38. Hemoglobin 13.4. Sodium 142. Potassium 4.4. Creatinine 1.40. Initial lactic acid 6.1. Currently 7.5. Troponin 4.06, 7.64. AST 608 ALT 320. Review of Systems ROS unobtainable: due to endotracheal tube Past Medical History Past Medical History: Hypertension, Thyroid Disorder Additional Past Medical History / Comment(s): THYROID NODULES. NOT DIABETIC, YET ON GLUCOPHAGE FOR "PROTECTIVE PURPOSES". Adrenal adenoma History of Any Multi-Drug Resistant Organisms: None Reported Additional Past Surgical History / Comment(s): THYROID BIOPSY, recent back surgery Past Anesthesia/Blood Transfusion Reactions: No Reported Reaction Past Psychological History: No Psychological Hx Reported Smoking Status: Unknown if ever smoked Past Alcohol Use History: None Reported Additional Past Alcohol Use History / Comment(s): Patient is a lifelong nonsmoker. He denies any marijuana, illicit drug use or alcohol use. He lives at home with his and 2 Yorkies. He denies any service. Patient travels extensively throughout the world including [place], [place], [place]. Past Drug Use History: None Reported - Past Family History Mother Family Medical History: Diabetes Mellitus Additional Family Medical History / Comment(s): HEPATITIS C. Father Family Medical History: Myocardial Infarction (ID) Additional Family Medical History / Comment(s): 11CM ELDON. Medications and Allergies Home Medications Medication Instructions Recorded Confirmed Type Levothyroxine Sodium 50 mcg PO DAILY 03/05/15 02/20/20 History atenoloL [Atenolol] 50 mg PO BID 03/05/15 02/20/20 History metFORMIN HCL 500 mg PO BID 03/05/15 02/20/20 History Naproxen 500 mg PO BID 07/12/18 02/20/20 History Atorvastatin Calcium [Lipitor] 40 mg PO DAILY 02/20/20 02/20/20 History Gabapentin 300 mg PO Q8H PRN 02/20/20 02/20/20 History Tamsulosin HCl [Flomax] 0.8 mg PO DAILY 02/20/20 02/20/20 History Triamterene/Hydrochlorothiazid 1 cap PO DAILY 02/20/20 02/20/20 History [Dyazide 37.5-25 Capsule] Valsartan [Diovan] 160 mg PO BID 02/20/20 02/20/20 History amLODIPine [Norvasc] 5 mg PO DAILY 02/20/20 02/20/20 History methocarbamoL [Robaxin] 750 mg PO Q8HR PRN 02/20/20 02/20/20 History traMADol HCL 100 mg PO Q6H PRN 02/20/20 02/20/20 History Allergies Allergy/AdvReac Type Severity Reaction Status Date / Time No Known Allergies Allergy Verified 02/20/20 01:10 Physical Exam Vitals: Vital Signs Temp Pulse Resp BP Pulse Ox 12/25/20 09:10 137 H 21 106/81 100 02/20/20 09:00 128 H 19 99/85 100 02/20/20 08:50 134 H 22 72/53 100 02/20/20 08:40 140 H 18 93/47 100 02/20/20 08:30 152 H 18 88/77 100 02/20/20 08:20 102 F H 137 H 18 136/99 100 02/20/20 08:10 142 H 19 88/76 99 02/20/20 08:00 133 H 27 H 111/63 99 02/20/20 07:50 163 H 26 H 92/61 98 02/20/20 07:40 158 H 27 H 112/77 99 02/20/20 07:30 158 H 28 H 109/57 99 02/20/20 07:20 151 H 27 H 99 02/20/20 07:10 147 H 27 H 102/52 99 02/20/20 07:00 154 H 28 H 108/69 98 02/20/20 06:50 144 H 26 H 120/96 98 02/20/20 06:40 160 H 27 H 89/59 99 02/20/20 06:30 151 H 26 H 86/51 99 02/20/20 06:20 151 H 28 H 92/78 99 02/20/20 06:10 154 H 26 H 100/62 97 02/20/20 06:00 147 H 28 H 91/62 96 02/20/20 05:50 163 H 28 H 93/69 93 L 02/20/20 05:40 144 H 31 H 96/63 99 02/20/20 05:30 149 H 30 H 101/71 98 02/20/20 05:20 146 H 30 H 97/81 96 02/20/20 05:10 98.6 F 140 H 26 H 124/82 83 L 02/20/20 05:00 142 H 28 H 89/65 02/20/20 04:50 141 H 28 H 02/20/20 04:47 150 H 28 H 02/20/20 04:20 125 H 16 155/89 02/20/20 03:40 97.5 F L 124 H 16 118/85 93 L 02/20/20 03:10 134 H 16 134/93 96 02/20/20 03:00 123 H 16 124/109 100 02/20/20 02:45 123 H 14 121/100 02/20/20 02:40 121 H 14 120/104 02/20/20 02:35 122 H 14 140/109 02/20/20 02:30 109 H 14 168/119 02/20/20 02:26 118 H 14 177/119 02/20/20 02:20 158 H 14 174/149 02/20/20 02:15 156 H 14 146/121 98 02/20/20 02:12 97.5 F L 156 H 16 142/105 97 02/20/20 02:00 138 H 16 02/20/20 01:55 133 H 14 114/83 02/20/20 01:32 110 H 112/84 02/20/20 01:22 110 H 14 170/93 02/20/20 01:08 146 H 14 104/68 Intake and Output 02/19/20 02/20/20 02/20/20 22:59 06:59 14:59 Intake Total 290.384 182.785 Output Total 1560 45 Balance -1269.616 137.785 Intake: IV 260 130 Sodium Chloride 0.9% 1, 260 130 000 ml @ 130 mls/hr IV . Q7H42M STA Rx#:[id number] Intake, IV Titration 30.384 52.785 Amount Empty Bag 1 bag @ 10 MCG/ 26.01 52.785 KG/MIN 9.18 mls/hr IV . [id number] LORENA with propofoL 1,000 mg Rx#:[id number] Norepinephrine 32 mg In 4.374 Sodium Chloride 0.9% 218 ml @ 0.05 MCG/KG/MIN 3. 615 mls/hr IV .Q24H ONE Rx#:[id number] Output: Urine 1560 45 Other: Voiding Method Indwelling Catheter Weight 153 kg GENERAL EXAM: Intubated, sedated 59-year-old obese male patient. HEAD: Normocephalic. EYES: Sluggish reaction of pupils, equal size. NOSE: Clear with pink turbinates. THROAT: Oral endotracheal and gastric tube secured in place. No erythema or exudates. NECK: No masses, no JVD. CHEST: No chest wall deformity. LUNGS: Equal air entry with crackles in the posterior bases. Diminished. CVS: S1 and S2 normal with no audible murmur, irregular rhythm. ABDOMEN: Obese. No hepatosplenomegaly, normal bowel sounds, no guarding or rigidity. SPINE: Blood saturated dressing on the lower back SKIN: No rashes CENTRAL NERVOUS SYSTEM: Unresponsive, tone is normal in all 4 extremities. EXTREMITIES: There is no peripheral edema. No clubbing, no cyanosis. Peripheral pulses are intact. Results - Laboratory Findings CBC and BMP: 02/20/20 05:15 02/20/20 08:05 ABG ABG pH 7.35 (7.35-7.45) 02/20/20 05:51 ABG pCO2 38 mmHg (35-45) 02/20/20 05:51 ABG pO2 108 mmHg (83-108) 02/20/20 05:51 ABG O2 Saturation 98.8 % (94-97) H 02/20/20 05:51 PT/INR, D-dimer PT 11.2 sec (9.0-12.0) 02/20/20 01:30 INR 1.1 (<1.2) 02/20/20 01:30 Abnormal lab findings: Abnormal Labs 02/20/20 02/20/20 02/20/20 01:30 01:30 01:30 WBC 13.2 H RBC 4.09 L Hgb 12.7 L MCV 102.0 H MCHC 30.4 L Metamyelocytes # (Man) 0.26 H Myelocytes # (Manual) 0.13 H Nucleated RBCs 1 H APTT ABG pH ABG pCO2 ABG pO2 ABG O2 Saturation Potassium 3.3 L Chloride Carbon Dioxide 20 L BUN Creatinine Glucose 318 H Plasma Lactic Acid Hank Calcium 8.2 L Phosphorus 10.6 H* Magnesium 2.9 H AST 313 H ALT 196 H Alkaline Phosphatase Troponin I Total Protein 5.4 L Albumin 2.9 L Urine Protein 2+ H Urine Blood Small H Urine RBC 36 H Urine WBC 13 H Urine Bacteria Many H Urine Mucus Occasional H Urine Sperm Many H 02/20/20 02/20/20 02/20/20 01:30 02:02 02:17 WBC RBC Hgb MCV MCHC Metamyelocytes # (Man) Myelocytes # (Manual) Nucleated RBCs APTT ABG pH 7.19 L* ABG pCO2 55 H ABG pO2 284 H ABG O2 Saturation 100.0 H Potassium Chloride Carbon Dioxide BUN Creatinine Glucose Plasma Lactic Acid Hank 15.3 H* Calcium Phosphorus Magnesium AST ALT Alkaline Phosphatase Troponin I 0.056 H* Total Protein Albumin Urine Protein Urine Blood Urine RBC Urine WBC Urine Bacteria Urine Mucus Urine Sperm 02/20/20 02/20/20 02/20/20 05:15 05:15 05:15 WBC RBC Hgb MCV MCHC Metamyelocytes # (Man) Myelocytes # (Manual) Nucleated RBCs APTT 51.0 H ABG pH ABG pCO2 ABG pO2 ABG O2 Saturation Potassium Chloride Carbon Dioxide BUN Creatinine Glucose Plasma Lactic Acid Hank 6.1 H* Calcium Phosphorus Magnesium AST ALT Alkaline Phosphatase Troponin I 4.060 H* Total Protein Albumin Urine Protein Urine Blood Urine RBC Urine WBC Urine Bacteria Urine Mucus Urine Sperm 02/20/20 02/20/20 02/20/20 05:15 05:51 08:05 WBC 38.3 H RBC 4.13 L Hgb MCV MCHC Metamyelocytes # (Man) Myelocytes # (Manual) Nucleated RBCs APTT ABG pH ABG pCO2 ABG pO2 ABG O2 Saturation 98.8 H Potassium Chloride Carbon Dioxide BUN Creatinine Glucose Plasma Lactic Acid Hank Calcium Phosphorus Magnesium AST ALT Alkaline Phosphatase Troponin I 7.640 H* Total Protein Albumin Urine Protein Urine Blood Urine RBC Urine WBC Urine Bacteria Urine Mucus Urine Sperm 02/20/20 02/20/20 08:05 08:05 WBC RBC Hgb MCV MCHC Metamyelocytes # (Man) Myelocytes # (Manual) Nucleated RBCs APTT ABG pH ABG pCO2 ABG pO2 ABG O2 Saturation Potassium Chloride 109 H Carbon Dioxide 17 L BUN 25 H Creatinine 1.40 H Glucose 169 H Plasma Lactic Acid Hank 7.5 H* Calcium 7.7 L Phosphorus 6.7 H Magnesium AST 608 H ALT 320 H Alkaline Phosphatase 151 H Troponin I Total Protein Albumin 3.3 L Urine Protein Urine Blood Urine RBC Urine WBC Urine Bacteria Urine Mucus Urine Sperm - Diagnostic Findings Chest x-ray: image reviewed CT scan - chest: image reviewed Assessment and Plan Assessment: 1 Cardiac arrest with an estimated downtime of 29 minutes with subsequent return of spontaneous circulation, suspect secondary to large 5 x 2 x 4.5 cm pulmonary embolism within the left main pulmonary artery. Peripheral pulmonary emboli within the vessels leading to the left lower lobe. Status post TPA. Heparin currently on hold. 2 Acute hypoxic respiratory failure secondary to above requiring intubation mechanical ventilatory support on 02/20/2020 3 New-onset atrial fibrillation with a rapid ventricular response, currently on amiodarone at 1 mg per min 4 Recent lower back surgery performed at [facility] 5 days ago, details of which are unavailable 5 Leukocytosis, current white count 38. 6 Acute kidney injury, current creatinine 1.40 7 Lactic acidosis, current lactic 7.5 8 Elevated LFTs, suspect shock liver 9 Elevated troponins, echocardiogram pending. 10 Morbid obesity 11 Hypertension 12 Diabetes mellitus 13 Hyperlipidemia Plan: The patient was seen and evaluated by Dr. Chaudhari Chest x-ray, ABGs and labs reviewed Continue the current treatment plan Continue to hold heparin until evaluated by orthopedics regarding the bleeding surgical site Echocardiogram pending Neurology consult pending Possible transfer back to [facility] Awaiting return call from the patient's . Two messages have been left. Prognosis is guarded. We will continue to follow and make further recommendations based on his clinical status. I, the cosigning physician, performed a history & physical examination of the patient. Lungs sounds with crackles in the bilateral posterior bases. Maintaining good O2 saturations in the 90s on 60% FiO2 via the mechanical ventilator. I discussed the assessment and plan of care with my nurse practitioner, Mirna Her. I attest to the above consultation as dictated by her. Time with Patient: Greater than 30
[2020-02-20] MEDS ORDERED: ACETAMINOPHEN IV (For NPO) 1,000 MG in EMPTY BAG 1 BAG IVPB PRN (10:01)
[2020-02-20] MEDS ORDERED: CISATRACURIUM 2 MG/ML 5 ML VIAL IV ONE (10:22)
--- NOTE | 2020-02-20 10:32 | CONS ---
JOHN Larry is a 59-year-old gentleman I am seeing for the first time this morning. The patient is intubated on a vent and is admitted to ICU, sedated. I obtained information from the nurse and the chart. The patient presented to the hospital with shortness of breath. He was short of breath at home. EMS was called and he apparently had a cardiac respiratory arrest and had to be resuscitated by the emergency personnel prior to coming to the emergency room. His EKG on presentation showed atrial fibrillation with poorly controlled ventricular rate, incomplete right bundle branch block and extensive ST-T wave changes. The patient's initial troponin was 0.05. The patient underwent a CTA of the lungs that showed a large pulmonary embolism involving the left main pulmonary artery. He received tPA in the emergency room and subsequently was admitted to the ICU. After he was given tPA, they learned that the patient had recent back surgery about 5-7 days ago and following the tPA he is having significant bleed from the surgical incision site. Heparin is currently on hold. The patient is on amiodarone, still remains in atrial fibrillation with somewhat poorly controlled ventricular rate. MEDICATIONS: At home included atenolol 50 b.i.d., Diovan 160 b.i.d., Dyazide, Norvasc 5 daily, Flomax, Neurontin, Lipitor, metformin, and levothyroxine. ALLERGIES: There are no known drug allergies. PAST MEDICAL HISTORY: The patient has a history of diabetes, hypertension, dyslipidemia, and hypothyroidism. I do not have any history of coronary artery disease, congestive heart failure or cardiac arrhythmia, but I am not able to obtain any information other than what is in the chart and talking to the nurse. REVIEW OF SYSTEMS: I am unable to obtain. EXAM: Patient is in atrial fibrillation with a heart rate of around 128 beats per minute. Blood pressure is 106/80, respiratory rate is 18, O2 saturation is 100%. Chest exam reveals diminished air entry bilaterally. I do not hear any crackles or rhonchi. Heart exam reveals first and second heart sounds, irregular rhythm. No murmur. Abdomen is soft. Exam of extremities did not reveal any edema. Peripheral pulses are felt. LAB: Show that the troponin is 0.054 and 7.6. EKG is abnormal as described above. Potassium is low at 3.3, creatinine is 1.1. AST, ALT are elevated. His white cell count is elevated at 38. Hemoglobin is 13.4. ASSESSMENT: 1. Status post cardiac respiratory arrest secondary to large pulmonary embolism. 2. Status post recent back surgery. 3. Persistent atrial fibrillation with poorly controlled ventricular rate. PLAN: The patient's prognosis is guarded given the recent back surgery. His heparin is on hold. It is unclear if the patient suffered hypoxic encephalopathy with prolonged resuscitation. We should consult a back surgeon to see if and when we can resume the IV heparin. I will obtain a 2D echo to evaluate his LV function. I believe the troponin elevation is related to the pulmonary embolism. Atrial fibrillation could have been precipitated by this same. I will try and get in touch with his and talk to her. MMODL / IJN: [id number] /
[2020-02-20] MEDS: IPRATROPIUM-ALBUTEROL 3 ML NEB INHALATION SCH ×3 (11:39→19:09)
--- NOTE | 2020-02-20 11:59 | XR ---
EXAM: XR Chest, 1 View CLINICAL HISTORY: ITS.REASON XR Reason: Central line placement TECHNIQUE: Frontal view of the chest. COMPARISON: Chest CT and Chest x-ray dated 02/20/20 FINDINGS: Lungs: Bibasilar platelike atelectasis. Overall interval improvement in aeration of the lungs. Persistent right lower lobe disease. Pleural space: Unremarkable. No pneumothorax. Heart: Status post left IJ line placement with the tip in the right atrium. Heart size appears enlarged possibly exaggerated due to technique but similar. Mediastinum: Unremarkable. Bones/joints: Unremarkable. Tubes, lines and devices: ET tube 4.7 cm above the tristian. Gastric tube tip below the edge of the study. IMPRESSION: 1. Status post left IJ line placement with the tip in the right atrium. 2. ET tube 4.7 cm above the tristian. Gastric tube tip below the edge of the study. 3. Bibasilar platelike atelectasis. Overall interval improvement in aeration of the lungs. Persistent right lower lobe disease.
--- NOTE | 2020-02-20 12:00 | P.HPIM ---
History of Present Illness Patient is a 59-year-old male is admitted after cardio respiratory arrest. She apparently received CPR 3 times the longest is 29 minutes. Patient is presently intubated. Patient had a recent back surgery found to be diaphoretic later became short of breath and unresponsive EMS was called patient was resuscitated brought to ER subsequently intubated after on the round of resuscitation. Patient underwent workup with a CT angiogram which showed a large pulmonary embolus in the left main pulmonary artery along with multiple other peripheral small pulmonary emboli mostly in the left lower lobes along with some patchy airspace disease. This is as per the reading from the radiologist I'm unable to open up the images at this time. Patient is also on atrial fibrillation with rapid and regular rate. Patient is presently intubated with a set up respiratory rate of around 20 to patient is breathing over the ventilator tidal volume of 500 have 60% PEEP of 5 with ABG showing pCO2 of 32 pO2 of 108 pH of 7.37 on 25 mics of propofol fall along with amiodarone and 130 mL of normal saline. Patient is nonresponsive to painful stimuli although as mentioned above is on propofol patient does have pupillary reflex gag reflex is absent patient troponin progressively went up to 7.64 cardiology was consulted echocardiac Jose Francisco is being obtained. Patient had white blood cell count of around 38,000 at this time. Patient received a TPA in ER patient was on IV heparin started having bleeding from the surgical site area in his back because of which are heparin was temporally held although patient will be resumed back on heparin. Patient urine output is okay although his creatinine continued to cooperate presently 1.4. Patient is also on norepinephrine Truck Service Manager evaluated the patient and recommended transfer to [facility] where he had his back surgery. Review of Systems Unable to obtain due to the above-mentioned reasons and patient is intubated Past Medical History Past Medical History: Hypertension, Thyroid Disorder Additional Past Medical History / Comment(s): THYROID NODULES. NOT DIABETIC, YET ON GLUCOPHAGE FOR "PROTECTIVE PURPOSES". Adrenal adenoma History of Any Multi-Drug Resistant Organisms: None Reported Additional Past Surgical History / Comment(s): THYROID BIOPSY, recent back surgery Past Anesthesia/Blood Transfusion Reactions: No Reported Reaction Past Psychological History: No Psychological Hx Reported Smoking Status: Unknown if ever smoked Past Alcohol Use History: None Reported Additional Past Alcohol Use History / Comment(s): Patient is a lifelong nonsmoker. He denies any marijuana, illicit drug use or alcohol use. He lives at home with his and 2 Yorkies. He denies any service. Patient travels extensively throughout the world including [place], [place], [place]. Past Drug Use History: None Reported - Past Family History Mother Family Medical History: Diabetes Mellitus Additional Family Medical History / Comment(s): HEPATITIS C. Father Family Medical History: Myocardial Infarction ([place]) Additional Family Medical History / Comment(s): 11CM ELDON. Medications and Allergies Home Medications Medication Instructions Recorded Confirmed Type Levothyroxine Sodium 50 mcg PO DAILY 03/05/15 02/20/20 History atenoloL [Atenolol] 50 mg PO BID 03/05/15 02/20/20 History metFORMIN HCL 500 mg PO BID 03/05/15 02/20/20 History Naproxen 500 mg PO BID 07/12/18 02/20/20 History Atorvastatin Calcium [Lipitor] 40 mg PO DAILY 02/20/20 02/20/20 History Gabapentin 300 mg PO Q8H PRN 02/20/20 02/20/20 History Tamsulosin HCl [Flomax] 0.8 mg PO DAILY 02/20/20 02/20/20 History Triamterene/Hydrochlorothiazid 1 cap PO DAILY 02/20/20 02/20/20 History [Dyazide 37.5-25 Capsule] methocarbamoL [Robaxin] 750 mg PO Q8HR PRN 02/20/20 02/20/20 History traMADol HCL 100 mg PO Q6H PRN 02/20/20 02/20/20 History Allergies Allergy/AdvReac Type Severity Reaction Status Date / Time No Known Allergies Allergy Verified 02/20/20 01:10 Physical Exam Vitals: Vital Signs Temp Pulse Resp BP Pulse Ox 02/20/20 09:10 137 H 21 106/81 100 02/20/20 09:00 128 H 19 99/85 100 02/20/20 08:50 134 H 22 72/53 100 02/20/20 08:40 140 H 18 93/47 100 02/20/20 08:30 152 H 18 88/77 100 02/20/20 08:20 102 F H 137 H 18 136/99 100 02/20/20 08:10 142 H 19 88/76 99 02/20/20 08:00 133 H 27 H 111/63 99 02/20/20 07:50 163 H 26 H 92/61 98 02/20/20 07:40 158 H 27 H 112/77 99 02/20/20 07:30 158 H 28 H 109/57 99 02/20/20 07:20 151 H 27 H 99 02/20/20 07:10 147 H 27 H 102/52 99 02/20/20 07:00 154 H 28 H 108/69 98 02/20/20 06:50 144 H 26 H 120/96 98 02/20/20 06:40 160 H 27 H 89/59 99 02/20/20 06:30 151 H 26 H 86/51 99 02/20/20 06:20 151 H 28 H 92/78 99 02/20/20 06:10 154 H 26 H 100/62 97 02/20/20 06:00 147 H 28 H 91/62 96 02/20/20 05:50 163 H 28 H 93/69 93 L 02/20/20 05:40 144 H 31 H 96/63 99 02/20/20 05:30 149 H 30 H 101/71 98 02/20/20 05:20 146 H 30 H 97/81 96 02/20/20 05:10 98.6 F 140 H 26 H 124/82 83 L 02/20/20 05:00 142 H 28 H 89/65 02/20/20 04:50 141 H 28 H 02/20/20 04:47 150 H 28 H 02/20/20 04:20 125 H 16 155/89 02/20/20 03:40 97.5 F L 124 H 16 118/85 93 L 02/20/20 03:10 134 H 16 134/93 96 02/20/20 03:00 123 H 16 124/109 100 02/20/20 02:45 123 H 14 121/100 02/20/20 02:40 121 H 14 120/104 02/20/20 02:35 122 H 14 140/109 02/20/20 02:30 109 H 14 168/119 02/20/20 02:26 118 H 14 177/119 02/20/20 02:20 158 H 14 174/149 02/20/20 02:15 156 H 14 146/121 98 02/20/20 02:12 97.5 F L 156 H 16 142/105 97 02/20/20 02:00 138 H 16 02/20/20 01:55 133 H 14 114/83 02/20/20 01:32 110 H 112/84 02/20/20 01:22 110 H 14 170/93 02/20/20 01:08 146 H 14 104/68 Intake and Output 02/19/20 02/20/20 02/20/20 22:59 06:59 14:59 Intake Total 290.384 442.785 Output Total 1560 90 Balance -1269.616 352.785 Intake: IV 260 390 Sodium Chloride 0.9% 1, 260 390 000 ml @ 130 mls/hr IV . Q7H42M STA Rx#:[id number] Intake, IV Titration 30.384 52.785 Amount Empty Bag 1 bag @ 10 MCG/ 26.01 52.785 KG/MIN 9.18 mls/hr IV . [id number] LORENA with propofoL 1,000 mg Rx#:[id number] Norepinephrine 32 mg In 4.374 Sodium Chloride 0.9% 218 ml @ 0.05 MCG/KG/MIN 3. 615 mls/hr IV .Q24H ONE Rx#:[id number] Output: Urine 1560 90 Other: Voiding Method Indwelling Catheter Weight 153 kg PHYSICAL EXAMINATION: GENERAL: Intubated sedated on ventilatory support HEENT: Pupils are round and equally reacting to light. EOMI. No scleral icterus. No conjunctival pallor. Normocephalic, atraumatic. No pharyngeal erythema. No thyromegaly. CARDIOVASCULAR: S1 and S2 present. No murmurs, rubs, or gallops. PULMONARY: Chest is clear to auscultation, no wheezing or crackles. ABDOMEN: Soft, nontender, nondistended, normoactive bowel sounds. No palpable organomegaly. MUSCULOSKELETAL: No joint swelling or deformity. EXTREMITIES: No cyanosis, clubbing, or pedal edema. NEUROLOGICAL: As mentioned in HPI patient is sedated at this time. SKIN: No rashes. Results CBC & Chem 7: 02/20/20 05:15 02/20/20 08:05 Labs: Abnormal Lab Results - Last 24 Hours (Table) 02/20/20 02/20/20 02/20/20 Range/Units 01:30 01:30 01:30 WBC 13.2 H (3.8-10.6) k/uL RBC 4.09 L (4.30-5.90) m/uL Hgb 12.7 L (13.0-17.5) gm/dL MCV 102.0 H (80.0-100.0) fL MCHC 30.4 L (31.0-37.0) g/dL Metamyelocytes # (Man) 0.26 H (0) k/uL Myelocytes # (Manual) 0.13 H (0) k/uL Nucleated RBCs 1 H (0-0) /100 WBC APTT (22.0-30.0) sec ABG pH (7.35-7.45) ABG pCO2 (35-45) mmHg ABG pO2 (83-108) mmHg ABG O2 Saturation (94-97) % Potassium 3.3 L (3.5-5.1) mmol/L Chloride (98-107) mmol/L Carbon Dioxide 20 L (22-30) mmol/L BUN (9-20) mg/dL Creatinine (0.66-1.25) mg/dL Glucose 318 H (74-99) mg/dL Plasma Lactic Acid Hank (0.7-2.0) mmol/L Calcium 8.2 L (8.4-10.2) mg/dL Phosphorus 10.6 H* (2.5-4.5) mg/dL Magnesium 2.9 H (1.6-2.3) mg/dL AST 313 H (17-59) U/L ALT 196 H (4-49) U/L Alkaline Phosphatase (38-126) U/L Troponin I (0.000-0.034) ng/mL Total Protein 5.4 L (6.3-8.2) g/dL Albumin 2.9 L (3.5-5.0) g/dL Urine Protein 2+ H (Negative) Urine Blood Small H (Negative) Urine RBC 36 H (0-5) /hpf Urine WBC 13 H (0-5) /hpf Urine Bacteria Many H (None) /hpf Urine Mucus Occasional H (None) /hpf Urine Sperm Many H (None) /hpf 02/20/20 02/20/20 02/20/20 Range/Units 01:30 02:02 02:17 WBC (3.8-10.6) k/uL RBC (4.30-5.90) m/uL Hgb (13.0-17.5) gm/dL MCV (80.0-100.0) fL MCHC (31.0-37.0) g/dL Metamyelocytes # (Man) (0) k/uL Myelocytes # (Manual) (0) k/uL Nucleated RBCs (0-0) /100 WBC APTT (22.0-30.0) sec ABG pH 7.19 L* (7.35-7.45) ABG pCO2 55 H (35-45) mmHg ABG pO2 284 H (83-108) mmHg ABG O2 Saturation 100.0 H (94-97) % Potassium (3.5-5.1) mmol/L Chloride (98-107) mmol/L Carbon Dioxide (22-30) mmol/L BUN (9-20) mg/dL Creatinine (0.66-1.25) mg/dL Glucose (74-99) mg/dL Plasma Lactic Acid Hank 15.3 H* (0.7-2.0) mmol/L Calcium (8.4-10.2) mg/dL Phosphorus (2.5-4.5) mg/dL Magnesium (1.6-2.3) mg/dL AST (17-59) U/L ALT (4-49) U/L Alkaline Phosphatase (38-126) U/L Troponin I 0.056 H* (0.000-0.034) ng/mL Total Protein (6.3-8.2) g/dL Albumin (3.5-5.0) g/dL Urine Protein (Negative) Urine Blood (Negative) Urine RBC (0-5) /hpf Urine WBC (0-5) /hpf Urine Bacteria (None) /hpf Urine Mucus (None) /hpf Urine Sperm (None) /hpf 02/20/20 02/20/20 02/20/20 Range/Units 05:15 05:15 05:15 WBC (3.8-10.6) k/uL RBC (4.30-5.90) m/uL Hgb (13.0-17.5) gm/dL MCV (80.0-100.0) fL MCHC (31.0-37.0) g/dL Metamyelocytes # (Man) (0) k/uL Myelocytes # (Manual) (0) k/uL Nucleated RBCs (0-0) /100 WBC APTT 51.0 H (22.0-30.0) sec ABG pH (7.35-7.45) ABG pCO2 (35-45) mmHg ABG pO2 (83-108) mmHg ABG O2 Saturation (94-97) % Potassium (3.5-5.1) mmol/L Chloride (98-107) mmol/L Carbon Dioxide (22-30) mmol/L BUN (9-20) mg/dL Creatinine (0.66-1.25) mg/dL Glucose (74-99) mg/dL Plasma Lactic Acid Hank 6.1 H* (0.7-2.0) mmol/L Calcium (8.4-10.2) mg/dL Phosphorus (2.5-4.5) mg/dL Magnesium (1.6-2.3) mg/dL AST (17-59) U/L ALT (4-49) U/L Alkaline Phosphatase (38-126) U/L Troponin I 4.060 H* (0.000-0.034) ng/mL Total Protein (6.3-8.2) g/dL Albumin (3.5-5.0) g/dL Urine Protein (Negative) Urine Blood (Negative) Urine RBC (0-5) /hpf Urine WBC (0-5) /hpf Urine Bacteria (None) /hpf Urine Mucus (None) /hpf Urine Sperm (None) /hpf 02/20/20 02/20/20 02/20/20 Range/Units 05:15 05:51 08:05 WBC 38.3 H (3.8-10.6) k/uL RBC 4.13 L (4.30-5.90) m/uL Hgb (13.0-17.5) gm/dL MCV (80.0-100.0) fL MCHC (31.0-37.0) g/dL Metamyelocytes # (Man) (0) k/uL Myelocytes # (Manual) (0) k/uL Nucleated RBCs (0-0) /100 WBC APTT (22.0-30.0) sec ABG pH (7.35-7.45) ABG pCO2 (35-45) mmHg ABG pO2 (83-108) mmHg ABG O2 Saturation 98.8 H (94-97) % Potassium (3.5-5.1) mmol/L Chloride (98-107) mmol/L Carbon Dioxide (22-30) mmol/L BUN (9-20) mg/dL Creatinine (0.66-1.25) mg/dL Glucose (74-99) mg/dL Plasma Lactic Acid Hank (0.7-2.0) mmol/L Calcium (8.4-10.2) mg/dL Phosphorus (2.5-4.5) mg/dL Magnesium (1.6-2.3) mg/dL AST (17-59) U/L ALT (4-49) U/L Alkaline Phosphatase (38-126) U/L Troponin I 7.640 H* (0.000-0.034) ng/mL Total Protein (6.3-8.2) g/dL Albumin (3.5-5.0) g/dL Urine Protein (Negative) Urine Blood (Negative) Urine RBC (0-5) /hpf Urine WBC (0-5) /hpf Urine Bacteria (None) /hpf Urine Mucus (None) /hpf Urine Sperm (None) /hpf 02/20/20 02/20/20 Range/Units 08:05 08:05 WBC (3.8-10.6) k/uL RBC (4.30-5.90) m/uL Hgb (13.0-17.5) gm/dL MCV (80.0-100.0) fL MCHC (31.0-37.0) g/dL Metamyelocytes # (Man) (0) k/uL Myelocytes # (Manual) (0) k/uL Nucleated RBCs (0-0) /100 WBC APTT (22.0-30.0) sec ABG pH (7.35-7.45) ABG pCO2 (35-45) mmHg ABG pO2 (83-108) mmHg ABG O2 Saturation (94-97) % Potassium (3.5-5.1) mmol/L Chloride 109 H (98-107) mmol/L Carbon Dioxide 17 L (22-30) mmol/L BUN 25 H (9-20) mg/dL Creatinine 1.40 H (0.66-1.25) mg/dL Glucose 169 H (74-99) mg/dL Plasma Lactic Acid Hank 7.5 H* (0.7-2.0) mmol/L Calcium 7.7 L (8.4-10.2) mg/dL Phosphorus 6.7 H (2.5-4.5) mg/dL Magnesium (1.6-2.3) mg/dL AST 608 H (17-59) U/L ALT 320 H (4-49) U/L Alkaline Phosphatase 151 H (38-126) U/L Troponin I (0.000-0.034) ng/mL Total Protein (6.3-8.2) g/dL Albumin 3.3 L (3.5-5.0) g/dL Urine Protein (Negative) Urine Blood (Negative) Urine RBC (0-5) /hpf Urine WBC (0-5) /hpf Urine Bacteria (None) /hpf Urine Mucus (None) /hpf Urine Sperm (None) /hpf Microbiology - Last 24 Hours (Table) 02/20/20 01:30 Urine Culture - Preliminary Urine,Voided Assessment and Plan Plan: -Cardio pulmonary arrest: Secondary to pulmonary embolism status post TPA, patient will be on IV heparin which is being temporally held because of bleeding from the surgical site in his back. -Acute hypoxic respiratory failure secondary to cardio pulmonary arrest, pulmonary embolism. -onset atrial fibrillation presently on amiodarone secondary to pulmonary embolism again. -Leukocytosis reactive although patient on empiric antiemetics and Zosyn which will continued -Acute renal failure probably due to blood necrosis from hypoperfusion of the kidneys -Lactic acidosis secondary to hypoperfusion as mentioned above. -Hypovolemic shock: Patient is presently on norepinephrine -Shock liver with elevated LFTs -Wasting -Recent back surgery a week ago. -Hypertension: Patient is presently in shock -Type 2 diabetes mellitus -Hyperlipidemia Plan Patient already has a central line in the left side of the neck along with the right arterial line. We'll discuss with the can capper and at [facility] for transfer. Echocardiogram will be obtained
--- NOTE | 2020-02-20 12:00 | P.PN ---
Progress Note - Text Progress Note Date: 02/20/20 This is a 59-year-old gentleman who has history of hypertension, hyperlipidemia, hypothyroidism, diabetes mellitus and recently had back surgery 5-7 days ago presented to the ER by EMS around one in the morning and while in the ambulance he went into cardiac arrest. He was also in cardiac arrest several more times in the emergency room with an approximate downtime of 29 minutes. He was intubated and placed on mechanical ventilation after obtaining the return of spontaneous circulation. CT angiogram revealed a very large 5 x 2 x 4.5 cm pulmonary embolism within the left main pulmonary artery and he was given systemic TPA in the emergency room. He was also found to be in atrial fibrill ation with rapid ventricular response. After treatment of near 2 hours with TPA he began to bleed from his surgical site and the TPA was halted. Currently according to the nurse and ICU team patient is on pressors and has minimal neurologic reflexes with major concern for anoxic brain injury. He did have his surgery at another hospital and that facility is being contacted for transfer. At this time there is no indication from a vascular standpoint to intervene surgically. He has been treated for his PE with systemic TPA at this time. Continue medical management and supportive care. I agree with transfer for his bleeding surgical site to his original surgeon. Cardiology consultation reviewed and agree with ECHO. Thank you for the consult
[2020-02-20] MEDS: PIPERACILLIN-TAZOBACTAM 3.375 GM in SODIUM CHLORIDE 0.9% 100 ML IVPB SCH ×2 (12:23→17:54)
[2020-02-20] MEDS: AMIODARONE 300 MG in DEXTROSE 5% IN WATER 250 ML IV SCH ×4 (12:23→21:45)
[2020-02-20] MEDS ORDERED: levETIRAcetam IV 2,000 MG in SALINE 1 100ML.BAG IVPB STA (12:35)
[2020-02-20] MEDS ORDERED: LEVETIRACETAM IVPB STA ×2 (12:40→12:42)
[2020-02-20] MEDS ORDERED: SODIUM CHLORIDE 0.9% IVPB STA ×2 (12:40→12:42)
--- NOTE | 2020-02-20 12:55 | P.CNNES ---
History of Present Illness Consult date: 02/20/20 Requesting physician: Adarsh Gomes Reason for Consult: neurological assessment post cardiac arrest History of Present Illness: This is a 59-year-old gentleman with medical history of hypertension, diabetes, hyperlipidemia, recent L3 to L5 laminectomy (02/09/2020) that presented to [facility] Emergency Department on 02/20/2020 at around 00:51 for cardiac arrest. History is obtained from medical records. Per the patient nurse on 02/19/2020 at nighttime that the patient was complaining of shortness of breath. He lives with his that. Per his she stated that the patient was having difficulty breathing and he kept insisting I can't breathe I can't breathe. EMS was called. On route the patient had cardiac arrest. Total down time is at 29 minutes at. The patient had CPR as well as the had epinephrine. A result the patient was intubated and on ventilator. Currently the patient is on propofol IV drip 25mcg/kg/min. Per the patients nurse the patient is only breathing over the vent and has sluggish reactive pupils only. Per the patient nurse when he was off sedation for 20 minutes. All he had was he was breathing over the vent and he had the sluggish pupils and he had this paradoxical breathing. Workup in the hospital consisted of: Initial vital signs: Blood pressure of 104/68, heart rate of 146, respiratory rate of 14. And the first initial temperature read is of 97.5 Fahrenheit axillary and pulse ox of 97% on mechanical ventilation. Initial EKG is reported as atrial flutter with variable AV block with premature ventricular or aberrantly conducted complexes. Incomplete right bundle branch block. Marketed ST abnormality, possible inferior lateral some endocardial injury. Abnormal EKG. Chest history is reported as hypoaeration. Cardiomegaly. Finding of incipient congestive heart failure. Subsegmental atelectasis at the left lung base. CT angiography of the chest is reported as dominant finding of the current study is a large pulmonary embolus within the left main pulmonary artery. Additional peripheral pulmonary emboli are noted with in the branches head into the left lower lobe.Hypoaeration. Patchy areas of consolidation both lungs. Cardiomegaly. Initial white blood cell is 13.2 and then the repeated one is a 38.3 likely reactive. Initial MCV is 102.0. Initial potassium 3.3, initial glucose is 318, the plasma lactic acid vein is 15.3 and in the reported as 6.1. Magnesium is 2.9 which is elevated. AST is 313 and ALTs 196. Troponin initial one is 0.056 and the repeat is 4.060 Because of the pulmonary embolism the patient received alteplase in the ED. The patient received 2 mg Ativan in the ED as well. And the patient the was on propofol IV drip. Review of Systems Review of system is limited because of patient condition but the prior positive and negative as per HPI. Past Medical History Past Medical History: Hypertension, Thyroid Disorder Additional Past Medical History / Comment(s): THYROID NODULES. NOT DIABETIC, YET ON GLUCOPHAGE FOR "PROTECTIVE PURPOSES". Adrenal adenoma History of Any Multi-Drug Resistant Organisms: None Reported Additional Past Surgical History / Comment(s): THYROID BIOPSY, recent back surgery Past Anesthesia/Blood Transfusion Reactions: No Reported Reaction Past Psychological History: No Psychological Hx Reported Smoking Status: Unknown if ever smoked Past Alcohol Use History: None Reported Additional Past Alcohol Use History / Comment(s): Patient is a lifelong nonsmoker. He denies any marijuana, illicit drug use or alcohol use. He lives at home with his and 2 Yorkies. He denies any service. Patient travels extensively throughout the world including [place], [place], [place]. Past Drug Use History: None Reported - Past Family History Mother Family Medical History: Diabetes Mellitus Additional Family Medical History / Comment(s): HEPATITIS C. Father Family Medical History: Myocardial Infarction ([place]) Additional Family Medical History / Comment(s): 11CM ELDON. Medications and Allergies Home Medications Medication Instructions Recorded Confirmed Type Levothyroxine Sodium 50 mcg PO DAILY 03/05/15 02/20/20 History atenoloL [Atenolol] 50 mg PO BID 03/05/15 02/20/20 History metFORMIN HCL 500 mg PO BID 03/05/15 02/20/20 History Naproxen 500 mg PO BID 07/12/18 02/20/20 History Atorvastatin Calcium [Lipitor] 40 mg PO DAILY 02/20/20 02/20/20 History Gabapentin 300 mg PO Q8H PRN 02/20/20 02/20/20 History Tamsulosin HCl [Flomax] 0.8 mg PO DAILY 02/20/20 02/20/20 History Triamterene/Hydrochlorothiazid 1 cap PO DAILY 02/20/20 02/20/20 History [Dyazide 37.5-25 Capsule] methocarbamoL [Robaxin] 750 mg PO Q8HR PRN 02/20/20 02/20/20 History traMADol HCL 100 mg PO Q6H PRN 02/20/20 02/20/20 History Allergies Allergy/AdvReac Type Severity Reaction Status Date / Time No Known Allergies Allergy Verified 02/20/20 01:10 Physical Examination - Vital Signs Vital Signs: Vital Signs Temp Pulse Resp BP Pulse Ox 02/20/20 08:10 142 H 19 88/76 99 02/20/20 08:00 133 H 27 H 111/63 99 02/20/20 07:50 163 H 26 H 92/61 98 02/20/20 07:40 158 H 27 H 112/77 99 02/20/20 07:30 158 H 28 H 109/57 99 02/20/20 07:20 151 H 27 H 99 02/20/20 07:10 147 H 27 H 102/52 99 02/20/20 07:00 154 H 28 H 108/69 98 02/20/20 06:50 144 H 26 H 120/96 98 02/20/20 06:40 160 H 27 H 89/59 99 02/20/20 06:30 151 H 26 H 86/51 99 02/20/20 06:20 151 H 28 H 92/78 99 02/20/20 06:10 154 H 26 H 100/62 97 02/20/20 06:00 147 H 28 H 91/62 96 02/20/20 05:50 163 H 28 H 93/69 93 L 02/20/20 05:40 144 H 31 H 96/63 99 02/20/20 05:30 149 H 30 H 101/71 98 02/20/20 05:20 146 H 30 H 97/81 96 02/20/20 05:10 98.6 F 140 H 26 H 124/82 83 L 02/20/20 05:00 142 H 28 H 89/65 02/20/20 04:50 141 H 28 H 02/20/20 04:47 150 H 28 H 02/20/20 04:20 125 H 16 155/89 02/20/20 03:40 97.5 F L 124 H 16 118/85 93 L 02/20/20 03:10 134 H 16 134/93 96 02/20/20 03:00 123 H 16 124/109 100 02/20/20 02:45 123 H 14 121/100 02/20/20 02:40 121 H 14 120/104 02/20/20 02:35 122 H 14 140/109 02/20/20 02:30 109 H 14 168/119 02/20/20 02:26 118 H 14 177/119 02/20/20 02:20 158 H 14 174/149 02/20/20 02:15 156 H 14 146/121 98 02/20/20 02:12 97.5 F L 156 H 16 142/105 97 02/20/20 02:00 138 H 16 02/20/20 01:55 133 H 14 114/83 02/20/20 01:32 110 H 112/84 02/20/20 01:22 110 H 14 170/93 02/20/20 01:08 146 H 14 104/68 Intake and Output 02/19/20 02/20/20 02/20/20 22:59 06:59 14:59 Intake Total 290.384 140.710 Output Total 1560 45 Balance -1269.616 95.710 Intake: IV 260 130 Sodium Chloride 0.9% 1, 260 130 000 ml @ 130 mls/hr IV . [id number] STA Rx#:[id number] Intake, IV Titration 30.384 10.710 Amount Empty Bag 1 bag @ 10 MCG/ 26.01 10.710 KG/MIN 9.18 mls/hr IV . [id number] LORENA with propofoL 1,000 mg Rx#:[id number] Norepinephrine 32 mg In 4.374 Sodium Chloride 0.9% 218 ml @ 0.05 MCG/KG/MIN 3. 615 mls/hr IV .Q24H ONE Rx#:[id number] Output: Urine 1560 45 Other: Voiding Method Indwelling Catheter Weight 153 kg GENERAL: The patient is lying in bed and does not seem in distress. CHEST: The heart rate is regular rate rhythm. No murmurs to auscultation. LUNG: Clear to auscultation bilaterally no wheezing noted throughout. Not labored breathing. The patient is intubated and on ventilator. Patient is breathing over the ventilator. ABDOMEN/GI: Bowel sounds present in all 4 quadrants. No tenderness to palpation throughout. NEUROLOGICAL: Limited since on IV Propofol 25mcg/kg/min. Higher mental function: The patient is comatose. GCS 3 (V1,ET1, M1). Not responsive or following commands. Cranial nerves: The pupils are round, equal (2mm) and sluggishly reactive to light bilaterally. Pupils primary gaze are midline bilaterally. No corneal reflex bilaterally. No facial weakness noted bilaterally. No gag or cough reflex. Otherwise could not assess rest of cranial nerves because of his condition. He had some lower lip tremor that was brief (lasting 15 seconds) and seen it twice. Motor: Deferred because of his condition. The strength is could not be assess because of his condition. But no spontaneous movement noted. Sensation: Unable to assess because of his condition. But no movement noted to painful stimuli. Reflexes (right/left): 1+ throughout bilateral upper extremities while 0-1 in lower extremities. Plantars are mute bilaterally. Results Urinalysis: It's yellow, turbid, nitrates negative, leukocyte Estrace is negative but the bacteria is many. Coagulation study: PT is 11.2, INR is 1.1 and PTT is 25.1. - Laboratory Findings CBC and BMP: 02/20/20 15:08 02/20/20 08:05 Abnormal Lab Findings: Abnormal Labs 02/20/20 02/20/20 02/20/20 01:30 01:30 01:30 WBC 13.2 H RBC 4.09 L Hgb 12.7 L MCV 102.0 H MCHC 30.4 L Metamyelocytes # (Man) 0.26 H Myelocytes # (Manual) 0.13 H Nucleated RBCs 1 H APTT ABG pH ABG pCO2 ABG pO2 ABG O2 Saturation Potassium 3.3 L Carbon Dioxide 20 L Glucose 318 H Plasma Lactic Acid Hank Calcium 8.2 L Phosphorus 10.6 H* Magnesium 2.9 H AST 313 H ALT 196 H Troponin I Total Protein 5.4 L Albumin 2.9 L Urine Protein 2+ H Urine Blood Small H Urine RBC 36 H Urine WBC 13 H Urine Bacteria Many H Urine Mucus Occasional H Urine Sperm Many H 02/20/20 02/20/20 02/20/20 01:30 02:02 02:17 WBC RBC Hgb MCV MCHC Metamyelocytes # (Man) Myelocytes # (Manual) Nucleated RBCs APTT ABG pH 7.19 L* ABG pCO2 55 H ABG pO2 284 H ABG O2 Saturation 100.0 H Potassium Carbon Dioxide Glucose Plasma Lactic Acid Hank 15.3 H* Calcium Phosphorus Magnesium AST ALT Troponin I 0.056 H* Total Protein Albumin Urine Protein Urine Blood Urine RBC Urine WBC Urine Bacteria Urine Mucus Urine Sperm 02/20/20 02/20/20 02/20/20 05:15 05:15 05:15 WBC RBC Hgb MCV MCHC Metamyelocytes # (Man) Myelocytes # (Manual) Nucleated RBCs APTT 51.0 H ABG pH ABG pCO2 ABG pO2 ABG O2 Saturation Potassium Carbon Dioxide Glucose Plasma Lactic Acid Hank 6.1 H* Calcium Phosphorus Magnesium AST ALT Troponin I 4.060 H* Total Protein Albumin Urine Protein Urine Blood Urine RBC Urine WBC Urine Bacteria Urine Mucus Urine Sperm 02/20/20 02/20/20 05:15 05:51 WBC 38.3 H RBC 4.13 L Hgb MCV MCHC Metamyelocytes # (Man) Myelocytes # (Manual) Nucleated RBCs APTT ABG pH ABG pCO2 ABG pO2 ABG O2 Saturation 98.8 H Potassium Carbon Dioxide Glucose Plasma Lactic Acid Hank Calcium Phosphorus Magnesium AST ALT Troponin I Total Protein Albumin Urine Protein Urine Blood Urine RBC Urine WBC Urine Bacteria Urine Mucus Urine Sperm Assessment and Plan Assessment: Anoxic brain injury from the cardiac arrest Altered mental status due to cardiac arrest as well as currently the patient is on sedation (propofol). The patient also has a component of toxic metabolic encephalopathy (elevated LFT's, elevated glucose, hypermagnesemia, hyperphosphatemia). Cardiac arrest s/p ROSC (down time for 29 minutes) Macrocytic anemia Recent history of L3 to L5 laminectomy (02/09/2020) Acute Left Pulmonary embolism Atrial flutter Elevated troponin Leukocytosis likely reactive Elevated liver function tests Diabetes mellitus Acute respiratory distress requiring ventilation Hypertition History of hyperlipidemia Plan: Ordered STAT EEG to rule out any electrographic seizure Because had the some of quivering of the lower lip therefore I ordered Keppra 2 gm loading stat then the place the patient on 750 milligrams 1 tab twice a day. The patient has acute kidney insufficiency we'll see if his kidney worsens and we'll modify the medication appropriately. Another good medication is Depakote for postcardiac arrest but his the liver function tests is elevated. I also ordered urgent CT of the head. The AST is twice as the much as the ALT with macrocytic anemia. I am not sure if the patient is a has a history of alcohol consumption therefore I started the patient on thiamine 100 mg daily. I ordered vitamin B12 and folate level. Also ordered ammonia level and TSH level. I will also place the patient on vitamin B12 1000 g daily and the 1 mg of folic acid because of the microcytic anemia 2-D echo is ordered and is pending. The patient is on IV heparin drip as well as off on IV amiodarone. Cardiology is on board and we'll defer the management to the cardiology team. Regarding that electrolyte imbalance will defer the management to the ICU/primary team. The plan was discussed with the patient nurse. UPDATE: CT Head: Reported as exam is limited by artifact. Hypoattenuation of the caudate head and the basal ganglia. Suggestion of patchy hypoattenuation along the cerebral cortex. Findings are concerning for hypoxic ischemic encephalopathy. I cannot review CT of the head because of system is down. Routine EEG (Pre-pino): Abnormal routine EEG. There is no appreciable cerebral electrical activity over bilateral hemisphere. There is abundant activity over the T4/T8 >F8 and P4 without evolution which seem like artifacts. There are no epileptiform discharges or seizure on the EEG. As a result of the the CT head finding, I started the patient on mannitol one- time dose. I also started the patient on the hypertonic saline 40 mL an hour. The sodium goal is 145-155. We'll get every 4 sodium checks as well as osmolality check. Continue Keppra 750mg 1 bid. I spoke with the (Saadia) via phone in detail and notified that as a result of his prolonged cardiac arrest, only few brain stem reflex from neurological exam otherwise no other cerebral function, cebral edema, multiorgan failure as a result of the cardiac arrest. I felt his prognosis seems poor. She stated she will await till tomorrow to see if any improvements especially since all this happened so sudden. There is no neurology coverage over the weekend. Please Perfect Serve if needed. Dr. Vaz will take over starting this Sunday. Kirk Chaudhari MD Neuro-hospitalist Time with Patient: Greater than 30
[2020-02-20 12:57] LABS: ABG Base Excess -9.7 mmol/L; ABG HCO3 16 mmol/L (21-25); ABG PCO2 31 mmHg (35-45); ABG PH 7.33 (7.35-7.45); ABG PO2 209 mmHg (83-108); ABG TCO2 17 mmol/L (19-24)
[2020-02-20] MEDS ORDERED: CISATRACURIUM 200 MG in SODIUM CHLORIDE 0.9% 180 ML IV SCH (13:00)
[2020-02-20 13:02] LABS: Allen Test Performed? no
--- NOTE | 2020-02-20 13:37 | US ---
EXAM: US Duplex Bilateral Upper Extremities Veins CLINICAL HISTORY: ITS.REASON US Reason: DVT TECHNIQUE: Real-time duplex ultrasound scan of the bilateral upper extremity veins integrating B-mode two-dimensional vascular structure, Doppler spectral analysis, color flow Doppler imaging and compression. COMPARISON: None FINDINGS: Right deep veins: Thrombus in the proximal and mid right popliteal vein. Patent right common femoral vein, superficial femoral vein, and distal popliteal vein. Right superficial veins: Unremarkable. No thrombus in the visualized right basilic and cephalic veins. Left deep veins: Unremarkable. No DVT in the left internal jugular, subclavian, axillary, or brachial veins. The veins demonstrate normal color flow, are normally compressible, with normal phasic flow and/or augmentation response. Left superficial veins: Unremarkable. No thrombus in the visualized left basilic and cephalic veins. Soft tissues: No acute findings. IMPRESSION: 1. Thrombus in the proximal and mid right popliteal vein. 2. No deep venous thrombosis identified in the left lower extremity.
--- NOTE | 2020-02-20 13:52 | ECHOF ---
Referral Reason:s/p cardiac arrest, pe MEASUREMENTS -------- HEIGHT: 182.9 cm WEIGHT: 152.9 kg BP: 106/81 RVIDd: 4.5 cm (< 3.3) IVSd: 1.2 cm (0.6 - 1.1) LVIDd: 3.5 cm (3.9 - 5.3) LVPWd: 1.2 cm (0.6 - 1.1) FINDINGS -------- Resting tachycardia (HR>100bpm). This was a technically difficult study with suboptimal views. Morbid Obesity Pt. on a vent. There is severe global hypokinesis of LV . Overall left ventricular systolic function is moderately impaired with, an EF between 35 - 40 %. The right ventricle is severely enlarged. The right ventricular systolic function is moderately imp aired. The left atrium was not well visualized. The right atrium was not well visualized. 5.0mg of Lumason was utilized for enhancement of images Interatrial and interventricular septum intact. The aortic valve was not well visualized. The mitral valve was not well visualized. Mild mitral regurgitation is present. Mild tricuspid regurgitation present. Unable to estimate RVSP due to inadequate TR jet spectral dop pler profile. The pulmonic valve was not well visualized. The aortic root size is normal. IVC Not well visulized. There is no pericardial effusion. CONCLUSIONS -------- 1. This was a technically difficult study with suboptimal views. 2. There is severe global hypokinesis of LV . 3. Overall left ventricular systolic function is moderately impaired with, an EF between 35 - 40 %. 4. The right ventricle is severely enlarged. 5. The right ventricular systolic function is moderately impaired. 6. Mild mitral regurgitation is present. 7. Mild tricuspid regurgitation present. 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
--- NOTE | 2020-02-20 15:05 | CT ---
EXAM: CT Head Without Intravenous Contrast CLINICAL HISTORY: ITS.REASON CT Reason: altered mental status post cardiac arrest TECHNIQUE: Axial computed tomography images of the head/brain without intravenous contrast. CTDI is 49.1 mGy and DLP is 1139 mGy-cm. This CT exam was performed using one or more of the following dose reduction techniques: automated exposure control, adjustment of the mA and/or kV according to patient size, and/or use of iterative reconstruction technique. COMPARISON: None FINDINGS: Limitations: Exam is limited by artifact. Brain: Hypoattenuation of the caudate heads and basal ganglia. Suggestion of patchy hypoattenuation along the cerebral cortex. Findings are concerning for hypoxic ischemic encephalopathy. Effacement of the cerebral sulci suggests cerebral edema. No hemorrhage. Ventricles: Unremarkable. No ventriculomegaly. Bones/joints: Unremarkable. No acute fracture. Soft tissues: Unremarkable. Sinuses: Mild mucosal thickening in the sphenoid sinuses and ethmoid air cells. Mastoid air cells: Unremarkable as visualized. No mastoid effusion. IMPRESSION: 1. Exam is limited by artifact. 2. Hypoattenuation of the caudate heads and basal ganglia. Suggestion of patchy hypoattenuation along the cerebral cortex. Findings are concerning for hypoxic ischemic encephalopathy. 3. Effacement of the cerebral sulci suggests cerebral edema.
--- NOTE | 2020-02-20 15:08 | PCN ---
PROCEDURE NOTE PROCEDURE: Right radial arterial line insertion. PREOP DIAGNOSIS: Hypotension, hemodynamic monitoring. POSTOP DIAGNOSIS: Hypotension, hemodynamic monitoring. No immediate complications. A time-out was completed verifying correct patient, procedure, site, positioning, and implant(s) or special equipment if applicable. Marcus's test was performed to ensure adequate perfusion. The patient's right wrist was prepped and draped in sterile fashion. 1% Lidocaine was used to anesthetize the area. An 18G Arrow arterial line was introduced into the radial artery. The catheter was threaded over the guide wire and the needle was removed with appropriate pulsatile blood return. Blood loss was minimal. The catheter was then sutured in place to the skin and a sterile dressing applied. Perfusion to the extremity distal to the point of catheter insertion was checked and found to be adequate. The patient tolerated the procedure well and there were no complications. MMANA MARÍAL / ISADORAN: [id number] /
--- NOTE | 2020-02-20 15:17 | PCN ---
PROCEDURE NOTE PROCEDURE: Left internal jugular triple-lumen catheter. PREOP DIAGNOSIS: Administration of fluids and pressors. POSTOP DIAGNOSIS: Administration of fluids and pressors. OPERATORS: Dr. Chaudhari and [place]. TRIPLE LUMEN CATHETER PLACEMENT: Indication: Hemodynamic monitoring/Intravenous access. A time-out was completed verifying correct patient, procedure, site, positioning, and implant(s) or special equipment if applicable. There was informed consent. The patient was placed in a dependent position appropriate for triple lumen catheter placement based on the vein to be cannulated. The patient's left neck was prepped and draped in sterile fashion. 1% Lidocaine was used to anesthetize the surrounding skin area. A triple lumen 9F Cordis catheter was introduced into the internal jugular using Seldinger technique. The catheter was threaded smoothly over the guide wire and appropriate blood return was obtained. Each lumen of the catheter was evacuated of air and flushed with sterile saline. The catheter was then sutured in place to the skin and a sterile dressing applied. Perfusion to the extremity distal to the point of catheter insertion was checked and found to be adequate. There was no immediate complication. There was good blood return from all 3 ports. A chest x-ray was ordered. The catheter was sutured in place. A sterile dressing was applied by the nurse. The tip of the catheter was seen in the right atrium. There was no immediate complication. The patient tolerated the procedure well. MMANA MARÍAL / IJN: [id number] /
[2020-02-20 15:22] LABS: Basophils # (A) 0.1 k/uL (0-0.2); Basophils % (A) 0 %; Eosinophils % (A) 0 %; HCT 33.7 % (39.0-53.0); Hypochromasia Slight; Lymphocytes # (A) 1.3 k/uL (1.0-4.8); Lymphocytes % (A) 4 %; MCH 31.4 pg (25.0-35.0); MCHC 32.7 g/dL (31.0-37.0); Mean Platelet Volume 8.5; Monocytes # (A) 0.8 k/uL (0-1.0); Monocytes % (A) 3 %; Neutrophils % (A) 92 %; Platelet Count 317 k/uL (150-450); RBC 3.51 m/uL (4.30-5.90); RDW 13.9 % (11.5-15.5)
--- NOTE | 2020-02-20 15:26 | CONS ---
CONSULTATION DATE OF SERVICE: 02/20/2020 REASON FOR CONSULTATION: This is an orthopedic consultation on a 59-year-old man in the ICU, room 261, bed 1. The patient is on the ventilator, is nonresponsive and history is obtained from the ICU nurse. HISTORY OF PRESENT ILLNESS: He was admitted through the ER nonresponsive after being coded for 29 minutes in the EMS vehicle. He had a spine surgery 5 days ago and the exact details are unknown. Vague history is obtained from the ICU nurse. Via the patient's , he had procedure at L2, 3 and 4. He probably had a laminectomy and fusion with internal fixation via cage. In any event, he experienced a pulmonary embolism yesterday and was in the emergency vehicle on the way to the hospital when he went into arrest. After nearly a half hour a pulse was obtained but he has been nonresponsive since that time. The concern at this time is to treat him with anticoagulants for his pulmonary embolism in the face of bleeding from his incision site. PHYSICAL EXAMINATION: Examination demonstrates he indeed is on the ventilator, lying supine. With the assistance of several nurses, we rolled him to the side and there is a moderate amount of bleeding around the incision site and soaking the dressings. His pressure dressing from surgery was removed and there is a slow bloody drainage from the wound. Although no hematoma is expressed per se, palpation produces a fair amount of blood through the incision site. Incision is approximately 6 inches in the lumbar area. There are no signs of redness or infection at this time. Neurologic exam is obviously not possible at this time. IMPRESSION: 1. Status post lumbar spine procedure 5 days ago. Details unknown. 2. Pulmonary embolism. 3. Persistent bleeding at the surgical site. DISCUSSION: I have spoken with my fellowship trained spine partner who is out of town. We both agree that the primary treatment is for the pulmonary embolism to try to save his life. This very well may cause continued bleeding, which would have to be managed with fluid replacement and potential blood transfusions. I have relayed this information directly to his air chipper Dr. Vincenzo Chaudhari. I did the dressing change with his ICU nurse with a plan to basically change dressings as necessary to capture the drainage. Unfortunately, there isn't much else that can be done orthopedically at this time. Attempts are being made to contact his treating physicians at [facility] where the surgery was performed. Potential transfer is in the works. Considering the details of the surgery are unknown, this may be advantageous. Feel free to contact us again if you need further assistance. Thank you. ROSA / GÓMEZ: [id number] /
[2020-02-20 15:31] LABS: Neutrophils # (A) 27.7 k/uL (1.3-7.7)
[2020-02-20] MEDS: CYANOCOBALAMIN 1,000 MCG/ML 1 ML VIAL IM SCH (16:53)
[2020-02-20] MEDS: THIAMINE 100 MG/ML 2 ML VIAL IVP SCH (16:53)
[2020-02-20] MEDS: ARTIFICIAL TEARS-HYPROMELLOSE DROPS 15 ML BTL BOTH EYES SCH ×2 (16:53→20:15)
[2020-02-20] MEDS ORDERED: MANNITOL 20% IV ONE (18:00)
[2020-02-20] MEDS ORDERED: SALINE IV ONE (18:00)
[2020-02-20] MEDS ORDERED: SODIUM CHLORIDE 3%(HYPERTONIC) 500 ML IV ONE (18:00)
[2020-02-20] MEDS ORDERED: SODIUM CHLORIDE 0.9% 150 ML with VASOPRESSIN 60 UNIT IV SCH ×2 (18:45)
[2020-02-20] MEDS: levETIRAcetam IV 750 MG in SODIUM CHLORIDE 0.9% 100 ML IVPB SCH (20:14)
--- NOTE | 2020-02-20 21:02 | EEG ---
ELECTROENCEPHALOGRAM REPORT DATE OF SERVICE: 02/20/2020 CLINICAL HISTORY: This is a 59-year-old gentleman who presented to the emergency department on 02/20/2020 and suffered a cardiac arrest en route to the hospital. He has altered mental status. This video EEG is obtained to evaluate for seizure and epileptiform activity. RELEVANT MEDICATION: Patient is on Keppra and IV propofol drip. EEG TYPE: A routine 21 channel EEG was performed with video using the 10/20 electrode placement system. DESCRIPTION: The patient is intubated on ventilator and on sedation (IV propofol). There is no appreciable cerebral activity seen over bilateral hemisphere. There are abundant low voltage 6-7 hertz nonrhythmic activity over T4/T6> F8 and P4 derivatives without any evolution to seizures. These are felt due to artifact. INTERICTAL AND ICTAL: None. ACTIVATION PROCEDURES: Photic stimulation did not evoke a posterior driving response. Hyperventilation was not performed. CLINICAL INTERPRETATION: This is an abnormal routine EEG. There is no appreciable cerebral activity seen over bilateral hemisphere. There are no epileptiform discharges or seizure seen. The activity over the T4/T6 >F8 and P4 without evolution to seizure are felt due to artifact. Clinical correlation is recommended. RECOMMENDATIONS: Recommend long-term EEG if suspicion of seizure is high. MMODL / IJN: [id number] / [facility]
[2020-02-21] MEDS: PIPERACILLIN-TAZOBACTAM 3.375 GM in SODIUM CHLORIDE 0.9% 100 ML IVPB SCH ×2 (00:27→12:04)
[2020-02-21] MEDS: ARTIFICIAL TEARS-HYPROMELLOSE DROPS 15 ML BTL BOTH EYES SCH ×3 (00:28→11:24)
[2020-02-21] MEDS: IPRATROPIUM-ALBUTEROL 3 ML NEB INHALATION SCH ×4 (00:31→11:20)
[2020-02-21 00:48] LABS: Sodium 138 mmol/L (137-145)
[2020-02-21] MEDS: NOREPINEPHRINE 32 MG in SODIUM CHLORIDE 0.9% 218 ML IV ONE ×2 (01:05→04:38)
[2020-02-21 03:38] VITALS: RESP 30
[2020-02-21 04:42] LABS: Basophils # (A) 0.1 k/uL (0-0.2); Basophils % (A) 0 %; Eosinophils % (A) 0 %; HGB 10.5 gm/dL (13.0-17.5); Lymphocytes # (A) 2.3 k/uL (1.0-4.8); Lymphocytes % (A) 6 %; MCH 31.8 pg (25.0-35.0); MCV 93.4 fL (80.0-100.0); Mean Platelet Volume 9.1; Monocytes # (A) 1.9 k/uL (0-1.0); Monocytes % (A) 5 %; Neutrophils # (A) 33.9 k/uL (1.3-7.7); Neutrophils % (A) 88 %; Platelet Count 308 k/uL (150-450); Poikilocytosis Slight; RBC 3.31 m/uL (4.30-5.90); RDW 13.9 % (11.5-15.5); WBC 38.6 k/uL (3.8-10.6)
[2020-02-21 04:52] LABS: INR 1.8 (<1.2); Partial Thromboplastin Time 66.1 sec (22.0-30.0); Prothrombin Time 17.5 sec (9.0-12.0)
[2020-02-21 04:55] LABS: Albumin 2.4 g/dL (3.5-5.0); Calcium 6.8 mg/dL (8.4-10.2); Magnesium 2.1 mg/dL (1.6-2.3); Phosphorus 5.6 mg/dL (2.5-4.5); Total Bilirubin 0.8 mg/dL (0.2-1.3)
[2020-02-21] MEDS ORDERED: NOREPINEPHRINE 32 MG in SODIUM CHLORIDE 0.9% 218 ML IV SCH (05:00)
[2020-02-21 05:20] LABS: ABG Base Excess -9.9 mmol/L; ABG HCO3 16 mmol/L (21-25); ABG Oxygen Saturation 99.7 % (94-97); ABG PCO2 32 mmHg (35-45); ABG PH 7.32 (7.35-7.45); ABG PO2 141 mmHg (83-108); ABG TCO2 17 mmol/L (19-24); Allen Test Performed? Yes
[2020-02-21] MEDS: INSULIN ASPART (NovoLOG) 100 UNIT/ML VIAL SQ SCH ×2 (05:54→12:45)
--- NOTE | 2020-02-21 06:08 | XR ---
EXAM: XR Chest, 1 View CLINICAL HISTORY: ITS.REASON XR Reason: Tube placement TECHNIQUE: Frontal view of the chest. COMPARISON: 02/20/2020 IMPRESSION: ET tube terminates 5.8 cm from the tristian. NG tube enters into the stomach but projects off the field of view. Left central line terminates in the cavoatrial junction.
[2020-02-21] MEDS ORDERED: SODIUM CHLORIDE 3%(HYPERTONIC) 500 ML IV SCH (07:00)
[2020-02-21 07:02] VITALS: BP 121/54
[2020-02-21 08:28] LABS: ABG Base Excess -9.7 mmol/L; ABG HCO3 17 mmol/L (21-25); ABG PCO2 33 mmHg (35-45); ABG PH 7.31 (7.35-7.45); ABG PO2 313 mmHg (83-108); ABG TCO2 18 mmol/L (19-24)
[2020-02-21 09:02] LABS: ABG Base Excess -9.7 mmol/L; ABG HCO3 21 mmol/L (21-25); ABG Oxygen Saturation 96.1 % (94-97); ABG PO2 115 mmHg (83-108); ABG TCO2 24 mmol/L (19-24)
[2020-02-21] MEDS ORDERED: AMIODARONE 300 MG in DEXTROSE 5% IN WATER 250 ML IV SCH ×2 (09:15)
--- NOTE | 2020-02-21 10:06 | P.PN ---
Subjective 59-year-old male is admitted after cardio respiratory arrest. She apparently received CPR 3 times the longest is 29 minutes. Patient is presently intubated. Patient had a recent back surgery found to be diaphoretic later became short of breath and unresponsive EMS was called patient was resuscitated brought to ER subsequently intubated after on the round of resuscitation. Patient underwent workup with a CT angiogram which showed a large pulmonary embolus in the left main pulmonary artery along with multiple other peripheral small pulmonary emboli mostly in the left lower lobes along with some patchy airspace disease. This is as per the reading from the radiologist I'm unable to open up the images at this time. Patient is also on atrial fibrillation with rapid and regular rate. Patient is presently intubated with a set up respiratory rate of around 20 to patient is breathing over the ventilator tidal volume of 500 have 60% PEEP of 5 with ABG showing pCO2 of 32 pO2 of 108 pH of 7.37 on 25 mics of propofol fall along with amiodarone and 130 mL of normal saline. Patient is nonresponsive to painful stimuli although as mentioned above is on propofol patient does have pupillary reflex gag reflex is absent patient troponin prog ressively went up to 7.64 cardiology was consulted echocardiac Jose Francisco is being obtained. Patient had white blood cell count of around 38,000 at this time. Patient received a TPA in ER patient was on IV heparin started having bleeding from the surgical site area in his back because of which are heparin was temporally held although patient will be resumed back on heparin. Patient urine output is okay although his creatinine continued to cooperate presently 1.4. Patient is also on norepinephrine 02/21/2020 Patient had an EEG and a CT of the brain and neurology evaluated the patient patient had significant anoxic brain injury and patient failed apneic test. After evaluation by multiple consultants dope heater discussed the his case with his and the believes that chance of reasonable neurological recovery is extremely low because of which patient was made [facility] is being contacted patient remains intubated. Review of systems: Unable to obtain due to his clinical condition All inpatient medications were reviewed and appropriate changes in these medications as dictated in the interval history and assessment and plan. Objective - Vital Signs Vital signs: Vital Signs Temp 100.3 F H 02/21/20 08:00 Pulse 89 02/21/20 08:30 Resp 30 H 02/21/20 08:30 BP 121/54 02/21/20 07:00 Pulse Ox 100 02/21/20 08:30 Intake & Output 02/20/20 02/21/20 02/21/20 18:59 06:59 18:59 Intake Total 5345.290 2063.604 130.648 Output Total 380 725 50 Balance 4965.290 1338.604 80.648 Weight 154.3 kg Intake: IV 1560 586 53 0.9 110 10 Sodium Chloride 0.9% 1, 1560 000 ml @ 130 mls/hr IV . Q7H42M [facility] Rx#:[id number] Sodium Chloride 3%( 440 40 Hypertonic) 500 ml @ 40 mls/hr IV ONCE ONE Rx#: [id number] pressure bag 36 3 Intake, IV Titration 3785.290 1467.604 77.648 Amount Amiodarone 300 mg In 234.167 Dextrose 5% in Water 250 ml @ 0.5 MG/MIN 25 mls/hr IV .Q10H [facility] Rx#: [id number] Cisatracurium 200 mg In 39.474 Sodium Chloride 0.9% 180 ml @ 1 MCG/KG/MIN 9.18 mls/hr IV .[id number] [facility] Rx #:[id number] Empty Bag 1 bag @ 10 MCG/ 252.618 272.340 45.135 KG/MIN 9.18 mls/hr IV . [id number] [facility] with propofoL 1,000 mg Rx#:[id number] Mannitol 20% Pmx 200 ml 200 In Saline 1 500ml.bag @ 200 mls/hr IV ONCE ONE Rx #:[id number] Norepinephrine 32 mg In 32.513 Sodium Chloride 0.9% 218 ml @ 0.05 MCG/KG/MIN 3. 586 mls/hr IV .Q24H [facility] Rx#:[id number] Norepinephrine 32 mg In 193.198 721.097 Sodium Chloride 0.9% 218 ml @ 0.05 MCG/KG/MIN 3. 615 mls/hr IV .Q24H ONE Rx#:[id number] Piperacillin-Tazobactam 3 200 .375 gm In Sodium Chloride 0.9% 100 ml @ 25 mls/hr IVPB Q8HR [facility] Rx# :[id number] Sodium Chloride 0.9% 1, 3000 000 ml @ 999 mls/hr IV . Q1H1M [facility] Rx#:[id number] Sodium Chloride 3%( 40 Hypertonic) 500 ml @ 40 mls/hr IV ONCE ONE Rx#: [id number] levETIRAcetam IV 2,000 mg 100 In Sodium Chloride 0.9% 100 ml @ 400 mls/hr IVPB ONCE [facility] Rx#:[id number] Lipid 10 0.9 10 Output: Urine 380 725 50 Other: Voiding Method Indwelling Catheter Indwelling Catheter ABP, PAP, CO, CI - Last Documented Arterial Blood Pressure 107/68 - Exam PHYSICAL EXAMINATION: GENERAL: Intubated sedated on ventilatory support HEENT: Pupils are round and equally reacting to light. EOMI. No scleral icterus. No conjunctival pallor. Normocephalic, atraumatic. No pharyngeal erythema. No thyromegaly. CARDIOVASCULAR: S1 and S2 present. No murmurs, rubs, or gallops. PULMONARY: Bilateral rhonchi ABDOMEN: Soft, nontender, nondistended, normoactive bowel sounds. No palpable organomegaly. MUSCULOSKELETAL: No joint swelling or deformity. EXTREMITIES: No cyanosis, clubbing, or pedal edema. NEUROLOGICAL: Failed apneic test SKIN: No rashes. - Labs CBC & Chem 7: 02/21/20 04:22 02/21/20 04:22 Labs: Abnormal Lab Results - Last 24 Hours (Table) 02/20/20 02/20/20 02/20/20 Range/Units 05:15 12:04 12:55 WBC (3.8-10.6) k/uL RBC (4.30-5.90) m/uL Hgb (13.0-17.5) gm/dL Hct (39.0-53.0) % Neutrophils # (1.3-7.7) k/uL Monocytes # (0-1.0) k/uL PT (9.0-12.0) sec INR (<1.2) APTT (22.0-30.0) sec ABG pH 7.33 L (7.35-7.45) ABG pCO2 31 L (35-45) mmHg ABG pO2 209 H (83-108) mmHg ABG HCO3 16 L (21-25) mmol/L ABG Total CO2 17 L (19-24) mmol/L ABG O2 Saturation 100.0 H (94-97) % Chloride (98-107) mmol/L Carbon Dioxide (22-30) mmol/L BUN (9-20) mg/dL Creatinine (0.66-1.25) mg/dL Glucose (74-99) mg/dL Osmolality (280-301) mosm/kg Plasma Lactic Acid Hank 6.3 H* (0.7-2.0) mmol/L Calcium (8.4-10.2) mg/dL Phosphorus (2.5-4.5) mg/dL AST (17-59) U/L ALT (4-49) U/L Alkaline Phosphatase (38-126) U/L Total Protein (6.3-8.2) g/dL Albumin (3.5-5.0) g/dL Triglycerides (<150) mg/dL HDL Cholesterol (40-60) mg/dL Vitamin B12 1026.0 H (200.0-944.0) pg/mL 02/20/20 02/20/20 02/20/20 Range/Units 15:08 15:08 23:04 WBC 30.0 H (3.8-10.6) k/uL RBC 3.51 L (4.30-5.90) m/uL Hgb 11.0 L (13.0-17.5) gm/dL Hct 33.7 L (39.0-53.0) % Neutrophils # 27.7 H (1.3-7.7) k/uL Monocytes # (0-1.0) k/uL PT (9.0-12.0) sec INR (<1.2) APTT (22.0-30.0) sec ABG pH (7.35-7.45) ABG pCO2 (35-45) mmHg ABG pO2 (83-108) mmHg ABG HCO3 (21-25) mmol/L ABG Total CO2 (19-24) mmol/L ABG O2 Saturation (94-97) % Chloride (98-107) mmol/L Carbon Dioxide (22-30) mmol/L BUN (9-20) mg/dL Creatinine (0.66-1.25) mg/dL Glucose (74-99) mg/dL Osmolality 316 H (280-301) mosm/kg Plasma Lactic Acid Hank 6.5 H* (0.7-2.0) mmol/L Calcium (8.4-10.2) mg/dL Phosphorus (2.5-4.5) mg/dL AST (17-59) U/L ALT (4-49) U/L Alkaline Phosphatase (38-126) U/L Total Protein (6.3-8.2) g/dL Albumin (3.5-5.0) g/dL Triglycerides (<150) mg/dL HDL Cholesterol (40-60) mg/dL Vitamin B12 (200.0-944.0) pg/mL 02/20/20 02/21/20 02/21/20 Range/Units 23:15 04:22 04:22 WBC 38.6 H (3.8-10.6) k/uL RBC 3.31 L (4.30-5.90) m/uL Hgb 10.5 L (13.0-17.5) gm/dL Hct 31.0 L (39.0-53.0) % Neutrophils # 33.9 H (1.3-7.7) k/uL Monocytes # 1.9 H (0-1.0) k/uL PT 17.5 H (9.0-12.0) sec INR 1.8 H (<1.2) APTT 58.0 H 66.1 H (22.0-30.0) sec ABG pH (7.35-7.45) ABG pCO2 (35-45) mmHg ABG pO2 (83-108) mmHg ABG HCO3 (21-25) mmol/L ABG Total CO2 (19-24) mmol/L ABG O2 Saturation (94-97) % Chloride (98-107) mmol/L Carbon Dioxide (22-30) mmol/L BUN (9-20) mg/dL Creatinine (0.66-1.25) mg/dL Glucose (74-99) mg/dL Osmolality (280-301) mosm/kg Plasma Lactic Acid Hank (0.7-2.0) mmol/L Calcium (8.4-10.2) mg/dL Phosphorus (2.5-4.5) mg/dL AST (17-59) U/L ALT (4-49) U/L Alkaline Phosphatase (38-126) U/L Total Protein (6.3-8.2) g/dL Albumin (3.5-5.0) g/dL Triglycerides (<150) mg/dL HDL Cholesterol (40-60) mg/dL Vitamin B12 (200.0-944.0) pg/mL 02/21/20 02/21/20 Range/Units 04:22 05:13 WBC (3.8-10.6) k/uL RBC (4.30-5.90) m/uL Hgb (13.0-17.5) gm/dL Hct (39.0-53.0) % Neutrophils # (1.3-7.7) k/uL Monocytes # (0-1.0) k/uL PT (9.0-12.0) sec INR (<1.2) APTT (22.0-30.0) sec ABG pH 7.32 L (7.35-7.45) ABG pCO2 32 L (35-45) mmHg ABG pO2 141 H (83-108) mmHg ABG HCO3 16 L (21-25) mmol/L ABG Total CO2 17 L (19-24) mmol/L ABG O2 Saturation 99.7 H (94-97) % Chloride 114 H (98-107) mmol/L Carbon Dioxide 18 L (22-30) mmol/L BUN 50 H (9-20) mg/dL Creatinine 3.14 H (0.66-1.25) mg/dL Glucose 206 H (74-99) mg/dL Osmolality 319 H (280-301) mosm/kg Plasma Lactic Acid Hank (0.7-2.0) mmol/L Calcium 6.8 L (8.4-10.2) mg/dL Phosphorus 5.6 H (2.5-4.5) mg/dL AST 5942 H (17-59) U/L ALT 4853 H (4-49) U/L Alkaline Phosphatase 133 H (38-126) U/L Total Protein 5.0 L (6.3-8.2) g/dL Albumin 2.4 L (3.5-5.0) g/dL Triglycerides 267 H (<150) mg/dL HDL Cholesterol 24 L (40-60) mg/dL Vitamin B12 (200.0-944.0) pg/mL Microbiology - Last 24 Hours (Table) 02/20/20 01:30 Urine Culture - Preliminary Urine,Voided Assessment and Plan Plan: -Cardio pulmonary arrest: Secondary to pulmonary embolism status post TPA. -Acute hypoxic respiratory failure secondary to cardio pulmonary arrest, pulmonary embolism. -onset atrial fibrillation -Leukocytosis reactive -Severe anoxic brain injury pale apneic test. CT of the head showed severe hyp oxic ischemic encephalopathy -Acute renal failure probably due to blood necrosis from hypoperfusion of the kidneys -Lactic acidosis secondary to hypoperfusion as mentioned above. -Hypovolemic shock: Patient is presently on norepinephrine -Shock liver with elevated LFTs -Multiorgan failure/dysfunction -Recent back surgery a week ago. -Hypertension: Patient is presently in shock -Type 2 diabetes mellitus -Hyperlipidemia Plan As mentioned above because of above-mentioned reasons patient was made [facility] was contacted patient remains intubated now.
--- NOTE | 2020-02-21 10:50 | P.PN ---
Subjective Progress Note Date: 02/21/20 Principal diagnosis: Cardiopulmonary arrest, pulmonary emboli This is a 59-year-old gentleman who follows with Dr. Woodson as his primary care provider. He has history of hypertension, hyperlipidemia, hypothyroidism, diabetes mellitus. He had recently undergone back surgery at [facility] earlier this week. Last evening his on him to be diaphoretic. He is complaining of shortness of breath. He was brought in by EMS shortly after midnight and while in the ambulance he went into cardiac arrest. He was also in cardiac arrest several more times in the emergency room with an approximate downtime of 29 minutes. He was intubated and placed on mechanical ventilation after obtaining the return of spontaneous circulation. 2 amps of bicarb had been given. He received 2 L of fluid resuscitation. CT angiogram revealed a very large 5 x 2 x 4.5 cm pulmonary embolism within the left main pulmonary artery. There is peripheral pulmonary emboli within the vessels leading to the left lower lobe. Patchy airspace disease posterior lung bases as well. He was given TPA in the emergency room. He was also found to be in atrial fibrillation with rapid ventricular response. Current vent settings are assist-control with respiratory rate of 22, tidal volume 500, FiO2 60% and a PEEP of 5. Blood gases revealed a PaO2 of 108, pCO2 38, pH 7.35. He is sedated on propofol at 25 mcg/kg/m. Amiodarone at 1 mg/m. 0.9 normal saline at 130 ML's per hour. Norepinephrine currently on hold. He is currently triggering the ventilator. Pupillary responses intact. No significant gag reflex. Absent doll's eyes. No response to verbal or painful stimuli. There is a significant amount of blood noted posteriorly from the recent back surgery. Heparin drip currently on hold. White count 38. Hemoglobin 13.4. Sodium 142. Potassium 4.4. Creatinine 1.40. Initial lactic acid 6.1. Currently 7.5. Troponin 4.06, 7.64. AST 608 ALT 320. The patient is seen today 02/21/2020 in follow-up in the intensive care unit. He remains intubated on a mechanical ventilator at assist control of 30, tidal volume 500, FiO2 50% and a PEEP of 5. Morning blood gases revealed a pO2 of 141, pCO2 32, P 60 pH 7.32. The patient had continued to deteriorate throughout the night. Neurologically unresponsive. Off sedation. Pupils are fixed and nonreactive. No gag reflex. Computed tomography scan of the brain revealed hypoattenuation of the caudate head and basal ganglia also suggestive of patchy hypoattenuation along the cerebral cortex. Findings are concerning for hypoxic ischemic encephalopathy. Effacement of the cerebral sulci suggests cerebral edema. EEG is abnormal. There is no appreciable cerebral activity seen over the bilateral hemisphere. There are no epileptiform discharges or seizures seen. Dopplers of the lower extremity revealed thrombus in the proximal and mid right popliteal vein. No DVT in the left lower extremity. He remains on a heparin drip per weight-based protocol. He is on 3% saline at 40 mL per hour regarding the cerebral edema, amiodarone at 0.5 mg/m. He is requiring norepinephrine at 113 mcg/m. Vasopressin at 0.03 units per minute. 0.9 normal saline at 20 ML's per hour. White count 38.6. Hemoglobin 10.5. INR 1.9. S odium 139. Potassium 5.0. Bicarb 18. Creatinine 3.14. Glucose 206. AST 5942, a LT 4853. Remains on bronchodilators, Zosyn. Objective - Vital Signs Vital signs: Vital Signs Temp 100.3 F H 02/21/20 08:00 Pulse 89 02/21/20 08:30 Resp 30 H 02/21/20 08:30 BP 121/54 02/21/20 07:00 Pulse Ox 100 02/21/20 08:30 Intake & Output 02/20/20 02/21/20 02/21/20 18:59 06:59 18:59 Intake Total 5345.290 2063.604 130.648 Output Total 380 725 50 Balance 4965.290 1338.604 80.648 Weight 154.3 kg Intake: IV 1560 586 53 0.9 110 10 Sodium Chloride 0.9% 1, 1560 000 ml @ 130 mls/hr IV . Q7H42M [facility] Rx#:[id number] Sodium Chloride 3%( 440 40 Hypertonic) 500 ml @ 40 mls/hr IV ONCE ONE Rx#: [id number] pressure bag 36 3 Intake, IV Titration 3785.290 1467.604 77.648 Amount Amiodarone 300 mg In 234.167 Dextrose 5% in Water 250 ml @ 0.5 MG/MIN 25 mls/hr IV .Q10H [facility] Rx#: [id number] Cisatracurium 200 mg In 39.474 Sodium Chloride 0.9% 180 ml @ 1 MCG/KG/MIN 9.18 mls/hr IV .[id number] [facility] Rx #:[id number] Empty Bag 1 bag @ 10 MCG/ 252.618 272.340 45.135 KG/MIN 9.18 mls/hr IV . [id number] [facility] with propofoL 1,000 mg Rx#:[id number] Mannitol 20% Pmx 200 ml 200 In Saline 1 500ml.bag @ 200 mls/hr IV ONCE ONE Rx #:[id number] Norepinephrine 32 mg In 32.513 Sodium Chloride 0.9% 218 ml @ 0.05 MCG/KG/MIN 3. 586 mls/hr IV .Q24H [facility] Rx#:[id number] Norepinephrine 32 mg In 193.198 721.097 Sodium Chloride 0.9% 218 ml @ 0.05 MCG/KG/MIN 3. 615 mls/hr IV .Q24H [facility] Rx#:[id number] Piperacillin-Tazobactam 3 200 .375 gm In Sodium Chloride 0.9% 100 ml @ 25 mls/hr IVPB Q8HR [facility] Rx# :[id number] Sodium Chloride 0.9% 1, 3000 000 ml @ 999 mls/hr IV . Q1H1M [facility] Rx#:[id number] Sodium Chloride 3%( 40 Hypertonic) 500 ml @ 40 mls/hr IV ONCE ONE Rx#: [id number] levETIRAcetam IV 2,000 mg 100 In Sodium Chloride 0.9% 100 ml @ 400 mls/hr IVPB ONCE [facility] Rx#:[id number] Lipid 10 0.9 10 Output: Urine 380 725 50 Other: Voiding Method Indwelling Catheter Indwelling Catheter ABP, PAP, CO, CI - Last Documented Arterial Blood Pressure 107/68 - Exam GENERAL EXAM: Intubated, sedated 59-year-old obese male patient. Unresponsive off sedation. HEAD: Normocephalic. EYES: Dilated, fixed pupils NOSE: Clear with pink turbinates. THROAT: Oral endotracheal and gastric tube secured in place. No erythema or exudates. NECK: No masses, no JVD. CHEST: No chest wall deformity. LUNGS: Equal air entry with crackles in the posterior bases. Diminished. CVS: S1 and S2 normal with no audible murmur, irregular rhythm. ABDOMEN: Obese. No hepatosplenomegaly, normal bowel sounds, no guarding or rigidity. SPINE: Dressing on the lower back SKIN: No rashes CENTRAL NERVOUS SYSTEM: Unresponsive, tone is normal in all 4 extremities. EXTREMITIES: There is no peripheral edema. No clubbing, no cyanosis. Peripheral pulses are intact. - Labs CBC & Chem 7: 02/21/20 04:22 02/21/20 04:22 Labs: Abnormal Lab Results - Last 24 Hours (Table) 02/20/20 02/20/20 02/20/20 Range/Units 05:15 12:04 12:55 WBC (3.8-10.6) k/uL RBC (4.30-5.90) m/uL Hgb (13.0-17.5) gm/dL Hct (39.0-53.0) % Neutrophils # (1.3-7.7) k/uL Monocytes # (0-1.0) k/uL PT (9.0-12.0) sec INR (<1.2) APTT (22.0-30.0) sec ABG pH 7.33 L (7.35-7.45) ABG pCO2 31 L (35-45) mmHg ABG pO2 209 H (83-108) mmHg ABG HCO3 16 L (21-25) mmol/L ABG Total CO2 17 L (19-24) mmol/L ABG O2 Saturation 100.0 H (94-97) % Chloride (98-107) mmol/L Carbon Dioxide (22-30) mmol/L BUN (9-20) mg/dL Creatinine (0.66-1.25) mg/dL Glucose (74-99) mg/dL Osmolality (280-301) mosm/kg Plasma Lactic Acid Hank 6.3 H* (0.7-2.0) mmol/L Calcium (8.4-10.2) mg/dL Phosphorus (2.5-4.5) mg/dL AST (17-59) U/L ALT (4-49) U/L Alkaline Phosphatase (38-126) U/L Total Protein (6.3-8.2) g/dL Albumin (3.5-5.0) g/dL Triglycerides (<150) mg/dL HDL Cholesterol (40-60) mg/dL Vitamin B12 1026.0 H (200.0-944.0) pg/mL 02/20/20 02/20/20 02/20/20 Range/Units 15:08 15:08 23:04 WBC 30.0 H (3.8-10.6) k/uL RBC 3.51 L (4.30-5.90) m/uL Hgb 11.0 L (13.0-17.5) gm/dL Hct 33.7 L (39.0-53.0) % Neutrophils # 27.7 H (1.3-7.7) k/uL Monocytes # (0-1.0) k/uL PT (9.0-12.0) sec INR (<1.2) APTT (22.0-30.0) sec ABG pH (7.35-7.45) ABG pCO2 (35-45) mmHg ABG pO2 (83-108) mmHg ABG HCO3 (21-25) mmol/L ABG Total CO2 (19-24) mmol/L ABG O2 Saturation (94-97) % Chloride (98-107) mmol/L Carbon Dioxide (22-30) mmol/L BUN (9-20) mg/dL Creatinine (0.66-1.25) mg/dL Glucose (74-99) mg/dL Osmolality 316 H (280-301) mosm/kg Plasma Lactic Acid Hank 6.5 H* (0.7-2.0) mmol/L Calcium (8.4-10.2) mg/dL Phosphorus (2.5-4.5) mg/dL AST (17-59) U/L ALT (4-49) U/L Alkaline Phosphatase (38-126) U/L Total Protein (6.3-8.2) g/dL Albumin (3.5-5.0) g/dL Triglycerides (<150) mg/dL HDL Cholesterol (40-60) mg/dL Vitamin B12 (200.0-944.0) pg/mL 02/20/20 02/21/20 02/21/20 Range/Units 23:15 04:22 04:22 WBC 38.6 H (3.8-10.6) k/uL RBC 3.31 L (4.30-5.90) m/uL Hgb 10.5 L (13.0-17.5) gm/dL Hct 31.0 L (39.0-53.0) % Neutrophils # 33.9 H (1.3-7.7) k/uL Monocytes # 1.9 H (0-1.0) k/uL PT 17.5 H (9.0-12.0) sec INR 1.8 H (<1.2) APTT 58.0 H 66.1 H (22.0-30.0) sec ABG pH (7.35-7.45) ABG pCO2 (35-45) mmHg ABG pO2 (83-108) mmHg ABG HCO3 (21-25) mmol/L ABG Total CO2 (19-24) mmol/L ABG O2 Saturation (94-97) % Chloride (98-107) mmol/L Carbon Dioxide (22-30) mmol/L BUN (9-20) mg/dL Creatinine (0.66-1.25) mg/dL Glucose (74-99) mg/dL Osmolality (280-301) mosm/kg Plasma Lactic Acid Hank (0.7-2.0) mmol/L Calcium (8.4-10.2) mg/dL Phosphorus (2.5-4.5) mg/dL AST (17-59) U/L ALT (4-49) U/L Alkaline Phosphatase (38-126) U/L Total Protein (6.3-8.2) g/dL Albumin (3.5-5.0) g/dL Triglycerides (<150) mg/dL HDL Cholesterol (40-60) mg/dL Vitamin B12 (200.0-944.0) pg/mL 02/21/20 02/21/20 Range/Units 04:22 05:13 WBC (3.8-10.6) k/uL RBC (4.30-5.90) m/uL Hgb (13.0-17.5) gm/dL Hct (39.0-53.0) % Neutrophils # (1.3-7.7) k/uL Monocytes # (0-1.0) k/uL PT (9.0-12.0) sec INR (<1.2) APTT (22.0-30.0) sec ABG pH 7.32 L (7.35-7.45) ABG pCO2 32 L (35-45) mmHg ABG pO2 141 H (83-108) mmHg ABG HCO3 16 L (21-25) mmol/L ABG Total CO2 17 L (19-24) mmol/L ABG O2 Saturation 99.7 H (94-97) % Chloride 114 H (98-107) mmol/L Carbon Dioxide 18 L (22-30) mmol/L BUN 50 H (9-20) mg/dL Creatinine 3.14 H (0.66-1.25) mg/dL Glucose 206 H (74-99) mg/dL Osmolality 319 H (280-301) mosm/kg Plasma Lactic Acid Hank (0.7-2.0) mmol/L Calcium 6.8 L (8.4-10.2) mg/dL Phosphorus 5.6 H (2.5-4.5) mg/dL AST 5942 H (17-59) U/L ALT 4853 H (4-49) U/L Alkaline Phosphatase 133 H (38-126) U/L Total Protein 5.0 L (6.3-8.2) g/dL Albumin 2.4 L (3.5-5.0) g/dL Triglycerides 267 H (<150) mg/dL HDL Cholesterol 24 L (40-60) mg/dL Vitamin B12 (200.0-944.0) pg/mL Microbiology - Last 24 Hours (Table) 02/20/20 01:30 Urine Culture - Preliminary Urine,Voided Assessment and Plan Assessment: 1 Cardiac arrest with an estimated downtime of 29 minutes with subsequent return of spontaneous circulation, suspect secondary to large 5 x 2 x 4.5 cm pulmonary embolism within the left main pulmonary artery. Peripheral pulmonary emboli within the vessels leading to the left lower lobe. Status post TPA. Severely enlarged right ventricle. Venous Doppler positive for right lower extremity DVT. 02/21/2020. The patient's neurologic status has declined. Pupils are fixed and dilated. Computed tomography scan of the brain reveals cerebral edema and evidence of hypoxic ischemic encephalopathy. EEG reveals no appreciable cerebral activity seen over bilateral hemispheres. The patient's hemodynamic status has deteriorated. He is on norepinephrine at 113 mcg/m. Vasopressin at 0.03 units per minute. 2 Acute hypoxic respiratory failure secondary to above requiring intubation mechanical ventilatory support on 02/20/2020 3 New-onset atrial fibrillation with a rapid ventricular response, currently on amiodarone at 0.5 mg per min 4 Recent lower back surgery performed at [facility] 5 days ago, details of which are unavailable 5 Leukocytosis, current white count 38.6 6 Acute kidney injury, current creatinine is worsening with creatinine at 3.14 7 Febrile illness secondary to above, temp 100.3 axillary 8 Elevated LFTs, suspect shock liver, worsening 9 Elevated troponins, with severe global hypokinesia and moderately impaired left ventricular systolic function with ejection fraction 35-40%. 10 Morbid obesity 11 Hypertension 12 Diabetes mellitus 13 Hyperlipidemia Plan: The patient was seen and evaluated by Dr. Chaudhari Chest x-ray, ABGs and labs reviewed Computed tomography scan of the brain, EEG reviewed We did perform an apneic oxygenation test at 9:05 The patient did not breathe on his own for 10 minutes. P CO2 be from 33 to [address] Chaudhari did speak with the patient's who is aware of his clinical change [facility] has been notified and evaluation is pending He is a DO NOT RESUSCITATE CODE STATUS Critical care time 38 minutes I, the cosigning physician, performed a history & physical examination of the patient. Lungs sounds with crackles in the bilateral posterior bases. Maintaining good O2 saturations in the 90s on 50% FiO2 via the mechanical ventilator. I discussed the assessment and plan of care with my nurse practitioner, Mirna Her. I attest to the above note as dictated by her.
[2020-02-21 11:54] LABS: ABG PH 7.19 (7.35-7.45)
[2020-02-21] MEDS: PANTOPRAZOLE 40 MG/10 ML VIAL IV SCH (12:05)
[2020-02-21] MEDS: CHLORHEXIDINE GLUCONATE 15 ML CUP MUCOUS MEM SCH (12:05)
[2020-02-21] MEDS: CYANOCOBALAMIN 1,000 MCG/ML 1 ML VIAL IM SCH (12:05)
[2020-02-21] MEDS: THIAMINE 100 MG/ML 2 ML VIAL IVP SCH (12:05)
[2020-02-21] MEDS: levETIRAcetam IV 750 MG in SODIUM CHLORIDE 0.9% 100 ML IVPB SCH (12:46)
[2020-02-21 12:59] VITALS: TEMP 99.8
[2020-02-21 13:18] LABS: Allen Test Performed? no
[2020-02-21 13:20] LABS: ABG PCO2 80 mmHg (35-45); ABG PH 7.03 (7.35-7.45); Allen Test Performed? no
--- NOTE | 2020-02-21 13:22 | PN ---
PROGRESS NOTE Laron is a 59-year-old gentleman that is admitted to the hospital with acute sudden onset shortness of breath and cardiorespiratory arrest on way to the hospital. Had been diagnosed with pulmonary embolism and received thrombolytic because of recent back surgery. Patient has had significant bleed. I have asked an orthopedic surgeon for their opinion and with their input heparin was started yesterday. This morning, I am told by the nurse that his pupils have become dilated and fixed and the patient is currently being evaluated for brain . His atrial fibrillation has converted to sinus. An echocardiogram on him showed a moderately impaired LV function with an ejection fraction of 35-40 percent with a severely enlarged right ventricle. PHYSICAL EXAMINATION: On exam heart rate is 89 beats per minute, blood pressure is 107/68, respiratory is 28. Chest exam reveals diminished air entry at the bases. Heart exam reveals first and second heart sounds. No gallop. Abdomen is soft. Exam of extremities did not reveal any edema. Peripheral pulses are felt. LABORATORY DATA: Hemoglobin of 10.5, platelet count is 308, potassium is 5, BUN is 50, creatinine is 3.1. AST, ALT are elevated. ASSESSMENT: 1. Cardiorespiratory arrest secondary to pulmonary embolism. 2. Recent back surgery. 3. Hypoxic encephalopathy. 4. Multiorgan failure with hypoxic encephalopathy. PLAN: Continue the patient on heparin, amiodarone, and I will see the patient on an as-needed basis at this time. MMODL / ISADORAN: [id number] /
[2020-02-21 13:56] LABS: Albumin 2.3 g/dL (3.5-5.0); Calcium 7.2 mg/dL (8.4-10.2); Potassium 5.7 mmol/L (3.5-5.1); Total Protein 4.7 g/dL (6.3-8.2)
[2020-02-21 15:37] VITALS: PULSE 93
--- NOTE | 2020-02-21 18:03 | PN ---
PROGRESS NOTE DATE OF SERVICE: 02/21/2020. The rounding time was 1:00 pm. 59-year-old man is seen in followup after consultation yesterday for his bleeding incision from his 5-6 day postop lumbar spine surgery. Again, he was admitted to ICU for hospital after sustaining a severe pulmonary embolism with cardiac arrest and a long period time of chest compressions prior to regaining heart rhythm. His vitals remained stable, but he has been confirmed brain . His family has approved removal of life support. This is being delayed pending the potential harvesting of organs. He is evaluated in room 261 in ICU along with his nurse. He remains on life support and is unresponsive. There are no signs of blood pooling around his abdomen. He is in a supine position. The nurse indicates the last dressing change was last evening, but there has been no evidence of significant bleeding since that time. The dressing is not changed at this time as his bleeding condition appears to be stable. PLAN: Orthopedically there is no further input needed at this time. The nurses require no further assistance for dressing changes and have no questions regarding his orthopedic care. Most likely, a decision is going to be made soon guarding his status for removal of life support system. There is no apparent need for further orthopedic input at this time. MMODL / IJN: [id number] /
[2020-02-22 15:30] LABS: Glucose,Whole Blood 146 mg/dL (75-99)
[2020-02-22 15:31] LABS: Glucose,Whole Blood 208 mg/dL (75-99)
[2020-02-26 05:35] LABS: Glucose,Whole Blood 191 mg/dL (75-99)
[2020-02-26 05:35] LABS: Glucose,Whole Blood 193 mg/dL (75-99)
[2020-02-26 05:35] LABS: Glucose,Whole Blood 166 mg/dL (75-99)
--- NOTE | 2020-03-01 14:55 | P.DS ---
Providers Date of admission: 02/20/20 03:01 Expected date of discharge: 03/23/20 Attending physician: Chago Beebe Consults: 02/20/20 02:58 Consult Physician Routine Consulting Provider: Willard Alves Consult Reason/Comments: icu Do you want consulting provider notified?: Yes Consult Physician Routine Consulting Provider: Gay Velasquez Consult Reason/Comments: CPR Do you want consulting provider notified?: Yes Consult Physician Urgent Consulting Provider: Kirk Chaudhari Consult Reason/Comments: cpr Do you want consulting provider notified?: Yes Consult Physician Urgent Consulting Provider: Laron Eric Consult Reason/Comments: PE Do you want consulting provider notified?: Yes 02/20/20 09:11 Consult Physician Urgent Consulting Provider: Gautam Chiu Consult Reason/Comments: recent back sx, anticoaguation recommendations Do you want consulting provider notified?: Yes Primary care physician: Serafin Woodson [facility] Course: Patient was admitted after cardio pulmonary arrest secondary to PE was made comfort care please refer to progress note for the further details. She was terminally extubated after that and the patient on the same day please refer to nursing documentation for exact time of . Patient Condition at Discharge: Critical Plan - Discharge Summary Discharge Rx Participant: Yes New Discharge Prescriptions: No Action metFORMIN HCL 500 mg PO BID Levothyroxine Sodium 50 mcg PO DAILY atenoloL [Atenolol] 50 mg PO BID Naproxen 500 mg PO BID Atorvastatin Calcium [Lipitor] 40 mg PO DAILY Gabapentin 300 mg PO Q8H PRN PRN Reason: Pain methocarbamoL [Robaxin] 750 mg PO Q8HR PRN PRN Reason: Muscle Spasm Tamsulosin HCl [Flomax] 0.8 mg PO DAILY traMADol HCL 100 mg PO Q6H PRN PRN Reason: Pain Triamterene/Hydrochlorothiazid [Dyazide 37.5-25 Capsule] 1 cap PO DAILY Discharge Medication List Levothyroxine Sodium 50 mcg PO DAILY 03/05/15 [History] atenoloL [Atenolol] 50 mg PO BID 03/05/15 [History] metFORMIN HCL 500 mg PO BID 03/05/15 [History] Naproxen 500 mg PO BID 07/12/18 [History] Atorvastatin Calcium [Lipitor] 40 mg PO DAILY 02/20/20 [History] Gabapentin 300 mg PO Q8H PRN 02/20/20 [History] Tamsulosin HCl [Flomax] 0.8 mg PO DAILY 02/20/20 [History] Triamterene/Hydrochlorothiazid [Dyazide 37.5-25 Capsule] 1 cap PO DAILY 02/20/20 [History] methocarbamoL [Robaxin] 750 mg PO Q8HR PRN 02/20/20 [History] traMADol HCL 100 mg PO Q6H PRN 02/20/20 [History] Follow up Appointment(s)/Referral(s): Serafin Woodson MD [Primary Care Provider] - 1-2 days Discharge Disposition: - Preliminary Cause of Preliminary Cause of : Pulmonary embolism
--- NOTE | 2020-03-02 11:12 | CDI ---
Documentation Clarification Form Mortality Review Date: 03/02/2020 11:08:44 AM From: Flora Colon RN, CCDS Admit Date: 02/20/2020 03:01:00 AM Patient Name: Laron Chowdary Visit Number: [id number] Discharge Date: 02/21/2020 05:06:00 PM ATTENTION: The Clinical Documentation Specialists (CDI) and [facility] Coding Staff appreciate your assistance in clarifying documentation. Please respond to the clarification below the line at the bottom and electronically sign. The CDI & [facility] Coding staff will review the response and follow-up if needed. Please note: Queries are made part of the Legal Health Record. If you have any questions, please contact the author of this message via ITS. Dr. Yaz Lobato "51 male DF for evaluation, patient brought initially were sudden history cardiac arrest, inability to breathe related hypoxia patient later found out to have large pulmonary embolism likely causing first diagnosis. is documented in the 02/19 ED medical Decision making note in a patient that is noted to be 5-6 days post-operative from a recent back surgery at another facility. 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 2. Pulmonary embolism.3.Persistent bleeding at the surgical site. Have spoken with my fellowship trained spine partner who is out of town. We both agree that the primary treatment is for the pulmonary embolism to try to save his life. This very well may cause continued bleeding, which would have to be managed with fluid replacement and potential blood transfusions." Treatment: 02/19 IV Ateplase Mechanical ventilation on admission Consults: Regional Director Of Finance, Cardiology, vascular surgery In order to accurately reflect this patients severity of illness, please clarify if acute massive PE is related to the recent surgical procedure: -PE with subsequent cardiopulmonary arrest is a complication of surgical procedure -PE with subsequent cardiopulmonary arrest is unrelated to surgical procedure -PE with subsequent cardiopulmonary arrest is related to co-morbid condition(s) (please specify) -Other please specify -Unable to determine (Last Revision: March 2019) PE with subsequent cardiopulmonary arrest is a complication of surgical procedure and related to comorbid conditions MTDD
== END 2020-02-21 17:06 | disposition expired | DRG 299 ==
LOC: EC 00:51 → 2SICU 03:01
PROVIDERS: ADMIT Hospitalist; ATTEND Hospitalist
PROC: 0BH17EZ Insertion of Endotracheal Airway into Trachea, Via Natural or Artificial Opening (ICD-10-PCS; principal; 2020-02-20)
PROC: 5A1945Z Respiratory Ventilation, 24-96 Consecutive Hours (ICD-10-PCS; principal; 2020-02-20)
PROC: 02HV33Z Insertion of Infusion Device into Superior Vena Cava, Percutaneous Approach (ICD-10-PCS; 2020-02-20)
PROC: 3E03317 Introduction of Other Thrombolytic into Peripheral Vein, Percutaneous Approach (ICD-10-PCS; 2020-02-20)
PROC: 4A133B1 Monitoring of Arterial Pressure, Peripheral, Percutaneous Approach (ICD-10-PCS; 2020-02-20)
PROC: 03HY32Z Insertion of Monitoring Device into Upper Artery, Percutaneous Approach (ICD-10-PCS; 2020-02-20)
PROC: 4A133J1 Monitoring of Arterial Pulse, Peripheral, Percutaneous Approach (ICD-10-PCS; 2020-02-20)
PROC: 02H633Z Insertion of Infusion Device into Right Atrium, Percutaneous Approach (ICD-10-PCS; 2020-02-20)
PROC: 3E033XZ Introduction of Vasopressor into Peripheral Vein, Percutaneous Approach (ICD-10-PCS; 2020-02-20)
DX: T81.718A Complication of other artery following a procedure, not elsewhere classified, initial encounter (principal); J96.01 Acute respiratory failure with hypoxia; N17.0 Acute kidney failure with tubular necrosis; K72.00 Acute and subacute hepatic failure without coma; G92 Toxic encephalopathy; G93.6 Cerebral edema; Z68.42 Body mass index [BMI] 45.0-49.9, adult; E87.2 Acidosis; I48.19 Other persistent atrial fibrillation; J98.11 Atelectasis; G93.1 Anoxic brain damage, not elsewhere classified; I82.431 Acute embolism and thrombosis of right popliteal vein; D68.32 Hemorrhagic disorder due to extrinsic circulating anticoagulants; I26.99 Other pulmonary embolism without acute cor pulmonale; Z51.5 Encounter for palliative care; Z66 Do not resuscitate; Z20.828 Contact with and (suspected) exposure to other viral communicable diseases; E03.9 Hypothyroidism, unspecified; I46.8 Cardiac arrest due to other underlying condition; T45.615A Adverse effect of thrombolytic drugs, initial encounter; R57.1 Hypovolemic shock; E78.00 Pure hypercholesterolemia, unspecified; E78.5 Hyperlipidemia, unspecified; I44.30 Unspecified atrioventricular block; I45.10 Unspecified right bundle-branch block; I10 Essential (primary) hypertension; E83.41 Hypermagnesemia; D53.9 Nutritional anemia, unspecified; E83.39 Other disorders of phosphorus metabolism; E11.65 Type 2 diabetes mellitus with hyperglycemia; E66.01 Morbid (severe) obesity due to excess calories; Z79.899 Other long term (current) drug therapy; Z79.890 Hormone replacement therapy; Z79.84 Long term (current) use of oral hypoglycemic drugs; Z83.3 Family history of diabetes mellitus; Z82.49 Family history of ischemic heart disease and other diseases of the circulatory system; Z83.79 Family history of other diseases of the digestive system; Z98.890 Other specified postprocedural states
CPT/HCPCS: 31500; 36415; 36556; 36600; 70450; 71045; 71275; 80053; 80061; 81001; 82550; 82607; 82747; 82805; 83605; 83735; 83930; 84100; 84295; 84443; 84484; 85025; 85027; 85610; 85730; 86850; 86900; 86901; 87086; 87635; 92950; 93005; 93306; 93970; 94002; 94003; 94640; 95816; 96365; 99291; 99292